=== PATIENT | female | born 1940 | race Caucasian/White ===

== ENCOUNTER 2018-06-27 19:05 | Emergency (ER) | payer MEDICARE, SELFPAY ==
[2018-06-27 19:05] VITALS: BP 172/109; PULSE 115; RESP 14; O2SAT 98
[2018-06-27 19:06] VITALS: BP 170/115; PULSE 110; RESP 18; TEMP 36.9; O2SAT 97; BMI 25.8
--- NOTE | 2018-06-27 19:35 | CT_ITS ---
STUDY: CT ABDOMEN AND PELVIS WITH CONTRAST REASON FOR EXAM: Female, 77 years old. Left upper quadrant pain. Nausea. Prior appendectomy. RADIATION DOSAGE (If Supplied By Facility): CTDIvol = ( 10.73 ) mGy, DLP = ( 554.61 ) mGycm TECHNIQUE: Transaxial images were obtained from the dome of the diaphragm to the symphysis pubis with oral contrast. Isovue 300 100ML IV/Oral was administered. Sagittal and coronal images were reconstructed. Individualized dose optimization techniques were used for this CT. COMPARISON: None. FINDINGS: Lung bases: Mild additional atelectasis/scarring. No focal patchy airspace opacities. No pleural effusions. Heart: Minimal aortic valve calcifications. Liver: Hepatic steatosis. Portal vein patent. Gallbladder/biliary ducts: Unremarkable. Pancreas: Severe pancreatic atrophy. Pancreatic body cystic lesion measuring 1.4 cm (axial image 37 series 2 and coronal image 30 series 6). No pancreatic ductal dilatation. Spleen: Unremarkable. Adrenal glands: Unremarkable. Kidneys/ureters/bladder: Minimal left perinephric and periureteral fat stranding. No ureteral obstruction. Multiple left low-density renal lesions most compatible with cysts. Mild right perinephric fat stranding. Nondistended right ureter. Urinary bladder is distended without wall abnormality. Uterus/adnexa: Atrophy. Adnexal regions physiologic appearance. Large bowel/small bowel: Colonic diverticulosis. No acute small bowel or large bowel process. Oral contrast reaches the mid small bowel. Appendix: Surgically absent as per clinical history. Gastroesophageal junction/stomach: Contrast distended stomach. Normal gastroesophageal junction. Retroperitoneum/lymph nodes: No intra-abdominal free air. No ascites. No pathologically enlarged lymph nodes. Vascular: Vascular calcifications. No aneurysm. Osseous structures: Degenerative changes. No acute process. Subcutaneous/soft tissues: Small fat-containing umbilical hernia. Paraspinal muscle atrophy. No acute process. CT/Abdomen/Pelvis WITH Contrast IMPRESSION: Bilateral perinephric fat stranding, left slightly greater than right, possible ascending infection/UTI (correlate urinalysis) Bilateral renal hypodense lesions, statistically cysts Colonic diverticulosis without acute small bowel or large bowel process 1.4 cm pancreatic indeterminate cystic lesion with severe pancreatic atrophy (nonemergent follow-up pancreatic protocol MRI recommended) Electronically Signed: Michael Goel DO at 21:42 EST Tel , Service support ,
--- NOTE | 2018-06-27 19:38 | ED.VISSUMM ---
- ER Visit Summary Date of Service: 06/27/18 Chief Complaint: Abdominal pain History of Present Illness: The patient is a 77 F who presents with left upper quadrant abdominal pain that has been getting worse over the past 3 days. Patient states she was lifting something and felt the pain began soon after that. Patient states the pain is over the left upper quadrant. Patient admits to some nausea but denies any vomiting. Patient states her pain is worse when she lays flat and better when she leans forward. Patient denies any diarrhea. Patient denies any dysuria or hematuria. Physical Examination: Vital signs are stable. Patient is afebrile. Patient is in no acute distress. Oral mucosa is pink and moist. Neck is supple. Trachea is midline. There is no JVD noted. Heart was regular and tachycardic. Lungs are clear and equal bilateral. Abdomen is soft. There is some left upper quadrant tenderness. There is no rebound or guarding noted. Cranial nerves II through XII are intact. There are no focal motor or sensory deficits noted. The remaining physical exam is within normal limits. Test Results: CT scan of the abdomen and pelvis shows bilateral perinephric stranding and a cystic lesion in the pancreas with severe atrophy of the pancreas. A nonemergency protocol MRI was recommended. CBC, comprehensive metabolic profile, lipase, and urinalysis were obtained and were all within normal limits. Emergency Department Course and Treatment: Patient was given IV fluids and morphine here. Patient felt better on reevaluation. Patient was instructed to follow-up with her primary care physician in 3-5 days. Patient was given a prescription for a short course of [place]. Patient was instructed to drink plenty of fluids. Patient and family understood and were agreeable with the plan. All questions were answered. Disposition: Discharge home Impression: Left upper quadrant abdominal pain This note was generated with [employer] dictation software. It may contain incorrect words, spelling, and punctuation that were not noted in review of the chart prior to signing ED Disposition - Plan for ED Patient: Disposition: Home or Assisted Living Diagnosis: Left upper quadrant abdominal pain of unknown etiology Instructions: ED Abdominal Pain Unkn Cause Prescriptions: Hydrocodone Bitart/Apap 5-325 [[place] 5MG-325MG] 1 tab PO Q6H PRN PRN 3 Days #10 tab PRN Reason: Pain Referrals: Deborah,Antonio, DO [Primary Care Provider] - 3-5 Days
--- NOTE | 2018-06-27 19:42 | ED.DCSUM_ITS ---
- ER Visit Summary Date of Service: 06/27/18 Chief Complaint: Abdominal pain History of Present Illness: The patient is a 77 F who presents with left upper quadrant abdominal pain that has been getting worse over the past 3 days. Patient states she was lifting something and felt the pain began soon after t hat. Patient states the pain is over the left upper quadrant. Patient admits to some nausea but denies any vomiting. Patient states her pain is worse when she lays flat and better when she leans forward. Patient denies any diarrhea. Patient denies any dysuria or hematuria. Physical Examination: Vital signs are stable. Patient is afebrile. Patient is in no acute distress. Oral mucosa is pink and moist. Neck is supple. Trachea is midline. There is no JVD noted. Heart was regular and tachycardic. Lungs are clear and equal bilateral. Abdomen is soft. There is some left upper quadrant tenderness. There is no rebound or guarding noted. Cranial nerves II through XII are intact. There are no focal motor or sensory deficits noted. The remaining physical exam is within normal limits. Test Results: CT scan of the abdomen and pelvis shows bilateral perinephric stranding and a cystic lesion in the pancreas with severe atrophy of the shen creas. A nonemergency protocol MRI was recommended. CBC, comprehensive metabolic profile, lipase, and urinalysis were obtained and were all within normal limits. Emergency Department Course and Treatment: Patient was given IV fluids and morphine here. Patient felt better on reevaluation. Patient was instructed to follow-up with her primary care physician in 3-5 days. Patient was given a prescription for a short course of [place]. Patient was instructed to drink plenty of fluids. Patient and family understood and were agreeable with the plan. All questions were answered. Disposition: Discharge home Impression: Left upper quadrant abdominal pain This note was generated with [employer] dictation software. It may contain incorrect words, spelling, and punctuation that were not noted in review of the chart prior to signing ED Disposition - Plan for ED Patient: Disposition: Home or Assisted Living Diagnosis: Left upper quadrant abdominal pain of unknown etiology Instructions: ED Abdominal Pain Unkn Cause Prescriptions: Hydrocodone Bitart/Apap 5-325 [[place] 5MG-325MG] 1 tab PO Q6H PRN PRN 3 Days #10 tab PRN Reason: Pain Referrals: Antonio Cabrera DO [Primary Care Provider] - 3-5 Days
[2018-06-27] MEDS: Morphine 4 MG/ML Syringe IV (19:45)
[2018-06-27 19:47] LABS: Absolute Lymphocyte Count 3.96 X10^3/ul (0.83-4.51); Absolute Neutrophil Count 5.3 X10^3/uL (2.0-7.7); Basophil# 0.03 X10^3/uL; Basophil% 0.3 % (0-1); Eosinophil# 0.05 X10^3/uL; Eosinophils% 0.5 % (0-5); Hematocrit 43.5 % (37-47); Hemoglobin 14.3 g/dl (12.0-15.0); Lymphocyte # 3.96 X10^3/ul (4.0); Lymphocyte % 39.9 % (19-41); Mean Corp Hgb Conc 32.9 g/gl (32-36); Mean Corpuscular Hgb 32.4 pg (27.0-32.0); Mean Corpuscular Volume 98.6 fL (81-99); Mean Platelet Vol. 10.6 fl (6.2-12.0); Monocyte# 0.59 X10^3/uL; Monocyte% 5.9 % (0-10); Neutrophil # 5.27 X10^3/uL (2.7-7.7); Neutrophil % 53.1 % (47-70); Platelet Count 247 K/mm3 (150-450); RBC Distribution Width CV 13.1 % (11.6-14.6); RBC Distribution Width SD 47.4 fl (35.1-43.9); Red Blood Count 4.41 M/mm3 (4.2-5.4); White Blood Count 9.9 K/mm3 (4.4-11.0)
[2018-06-27 19:48] LABS: POSITIVE COUNT NO; POSITIVE DIFFERENTIAL NO; POSITIVE MORPHOLOGY NO
[2018-06-27 19:52] VITALS: BP 183/80; PULSE 105; RESP 28; O2SAT 95
[2018-06-27 20:01] LABS: Bacteria 0 SEEN /hpf (None Seen); Mucous, Urine 0 SEEN /hpf (<or=2+); Red Blood Cells-Urine 0 SEEN /hpf (0-5); Squamous Epithelial Cells - UA 0 SEEN /hpf (5-10)
[2018-06-27 20:08] LABS: AST(SGOT) 25 U/L (15-37); Alanine Aminotransfer ALT/SGPT 25 U/L (13-56); Albumin, Serum 4.1 g/dL (3.2-5.0); Alkaline Phosphatase 105 U/L (45-117); Anion Gap 11 (5-15); BUN 20 mg/dL (7-18); BUN/Creat Ratio 17.7 RATIO (10-20); Calcium,Total 9.4 mg/dL (8.5-10.1); Chloride 106 mmol/L (98-107); Creatinine, Serum 1.13 mg/dL (0.55-1.02); EST Glomerular Filtration Rate 50 mL/min (>60); Est Glom Filt Rate - Afr Amer 60 mL/min (>60); Globulin 4.2 g/dL (2.2-4.2); Glucose 125 mg/dL (74-106); Lipase 74 U/L (73-393); Potassium 3.8 mmol/L (3.5-5.1); Protein, Total 8.3 g/dL (6.4-8.2); Sodium Level 141 mmol/L (136-145)
[2018-06-27 20:18] VITALS: BP 146/86; PULSE 93; RESP 18; O2SAT 95
[2018-06-27 20:23] LABS: Color, Urine Yellow (Yellow); Glucose, Dipstick Normal (Normal); Ketone-Dipstick Negative (Negative); Leukocyte Esterase-Dipstick 100 /ul (Negative); Nitrite-Dipstick Negative (Negative); Occult Blood-Urine Negative /ul (Negative); Protein-Dipstick Negative (Negative); Urine Bilirubin Dipstick Negative (Negative); Urine Clarity Clear (Clear); Urine Urobilinogen Normal (Normal)
[2018-06-27 20:29] LABS: White Blood Cells 0-5 SEEN /hpf (0-5)
[2018-06-27 22:26] VITALS: BP 145/82; PULSE 80; RESP 18; O2SAT 94
== END 2018-06-27 22:27 | disposition home or self-care (01) ==
PROVIDERS: Emergency Provider Emergency Medicine; Family Provider Family Medicine; PCP Family Medicine
DX: R10.12 Left upper quadrant pain (principal); I10 Essential (primary) hypertension
CPT/HCPCS: 74177; 80053; 81001; 83690; 85025; 96374; 99282; Q9967; A4216

== ENCOUNTER → 2018-07-02 08:51 | Outpatient (CLI) | payer MEDICARE, SELFPAY ==
[2018-06-27 19:06] VITALS: BMI 25.8
--- NOTE | 2018-07-02 09:13 | MRI_ITS ---
STUDY: MRI ABDOMEN WITH AND WITHOUT CONTRAST REASON FOR EXAM: Female, 77 years old. Pancreas exist, abdominal pain left upper quadrant one week. Prior appendectomy and oophorectomy. TECHNIQUE: Standardized fat and water weighted pulse sequences were obtained in all 3 orthogonal planes post contrast administration. 6 ml of Gadavist contrast material was administered intravenously for the contrast portion of the examination. COMPARISON: CT abdomen and pelvis with contrast 06/27/2018. FINDINGS: Osseous structures: There is evidence of mild thoracal lumbar scoliosis, mild low lumbar degenerative disc disease at L5-S1. There appears to be transitional lumbosacral vertebral anatomy with lumbarization of S1. No acute osseous process is evident. Bilateral soft tissues: No acute process. Inferior chest: Unremarkable. Hepatobiliary: Hepatomegaly, craniocaudal right liver 18.2 cm. No focal hepatic lesion is evident. No abnormal enhancement. Normal gallbladder and biliary tree. Pancreas: Severe fatty atrophy. There is a sharply circumscribed oval thin-walled cyst of the proximal pancreatic tail measuring 12 mm, simple cystic features. There is no ductal ectasia. Spleen: Normal. Adrenal glands: Normal. Urinary tract: Small right parapelvic cysts of the left kidney. A few of the right kidney. Nondilated collecting systems. Simple cysts of the left renal cortex, the largest measuring 1.5 cm. Symmetric nephrograms. Retroperitoneum: No mass or lymphadenopathy. Vasculature: Normal. Stomach: Normal. Small and large bowel: Evaluated portions of the bowel exhibits no acute process. MRI/MRI Abd WITH and W/O Contrast IMPRESSION: Pancreatic cyst of the proximal tail measuring 12 mm. Simple cystic features. Differential considerations include simple cysts, versus IPMN. There is no associated ductal ectasia and there is no clear communication to the pancreatic duct although cyst directly abuts the duct. Pancreatic cystic neoplasm is not entirely excluded despite the bland morphology. Surveillance imaging is recommended. If follow-up in 1 year would be appropriate based on size criteria. Prominent pancreatic atrophy. Benign renal cysts including left renal cortical cysts and bilateral parapelvic cysts. Electronically Signed: Melquiades Penn MD at 14:06 EST Tel , Service support ,
== END ==
PROVIDERS: Family Provider Family Medicine; PCP Family Medicine; Referring Provider Family Medicine; Visit Provider Family Medicine
DX: K86.2 Cyst of pancreas (principal); R10.9 Unspecified abdominal pain
CPT/HCPCS: 74183; A9585; A4216

== ENCOUNTER → 2019-03-15 06:41 | Outpatient (CLI) | payer MEDICARE, SELFPAY ==
--- NOTE | 2019-03-15 06:51 | MRI_ITS ---
STUDY: MRI BRAIN WITH AND WITHOUT CONTRAST REASON FOR EXAM: Female, 78 years old. The left ear tinnitus and hearing loss TECHNIQUE: Standardized multiplanar fat and water weighted pulse sequences were obtained. IV Dotarem 13 was administered for the contrast portion of the examination. COMPARISON: None. FINDINGS: There is moderate cerebral atrophy with widening of the extra-axial spaces and ventricular dilatation. There are multiple confluent white matter hyperintensities, distributed throughout the deep white matter tracts of the cerebral hemispheres, consistent with severe chronic white matter ischemic changes. There are prominent perivascular spaces (PVS) involving the basal ganglia. Normal thalami. There is no extra-axial fluid accumulation. Normal flow voids within the major intracranial circulation suggesting patency by spin echo criteria. Normal venous enhancement. There is no enhancing intra-axial or extra-axial abnormality. Normal sella turcica, pituitary gland, infundibular stalk, optic chiasm and hypothalamus. Normal tectal plate and pineal gland. Normal midbrain, uzma and medulla. Normal cerebellum. Normal basal cisterns. Normal bilateral temporal bones. Normal bilateral internal auditory canals. No demonstrated orbital abnormality, within the constraints of a routine brain study. Normal visualized paranasal sinuses. Normal calvarium and skull base. Normal visualized soft tissue structures. Normal visualized upper cervical spine. MRI/Brain W/WO Contrast IMPRESSION: Severe involutional changes of the brain, as described above. Normal bilateral internal auditory canals and cerebellopontine angle. Electronically Signed: Madeleine Tristin, at 11:34 EST Tel , Service support ,
[2019-03-15 07:51] LABS: CREATININE FINGERSTICK 0.9 mg/dL (0.55-1.02); EGFR FINGERSTICK > 60.0000 mL/min (>60)
== END ==
PROVIDERS: Family Provider Family Medicine; PCP Family Medicine; Referring Provider Otolaryngology Otolaryngology/Facial Plastic Surgery; Visit Provider Otolaryngology Otolaryngology/Facial Plastic Surgery
DX: H93.12 Tinnitus, left ear (principal); H91.90 Unspecified hearing loss, unspecified ear
CPT/HCPCS: 70553; A9575

== ENCOUNTER 2024-03-01 10:56 | Inpatient (IN) | payer MEDICARE, SELFPAY ==
[2024-03-01] VITALS (26 sets, daily range): BP systolic 96–140; BP diastolic 58–103; PULSE 81–162; RESP 14–22; TEMP 36.2–36.3; O2SAT 82–100; BMI 26.4; BMI 26.8
[2024-03-01 11:36] LABS: Absolute Neutrophil Count 4.7 X10^3/uL (2.0-7.7); Basophil# 0.05 X10^3/uL; Basophil% 0.6 % (0-1); Eosinophil# 0.04 X10^3/uL; Eosinophils% 0.5 % (0-5); Hematocrit 42.8 % (37-47); Hemoglobin 14.1 g/dL (12.0-15.0); Lymphocyte % 37.4 % (19-41); Mean Corp Hgb Conc 32.9 g/dL (32-36); Mean Corpuscular Hgb 33.3 pg (27.0-32.0); Mean Corpuscular Volume 101.2 fL (81-99); Mean Platelet Vol. 11.1 fl (6.2-12.0); Monocyte# 0.37 X10^3/uL; Monocyte% 4.5 % (0-10); NRBC Flagged by Analyzer 0 % (0-5); Neutrophil # 4.71 X10^3/uL (2.7-7.7); Neutrophil % 56.8 % (47-70); Platelet Count 245 K/mm3 (150-450); RBC Distribution Width CV 13.2 % (11.6-14.6); RBC Distribution Width SD 49.8 fl (35.1-43.9); Red Blood Count 4.23 M/mm3 (4.2-5.4); White Blood Count 8.3 K/mm3 (4.4-11.0)
[2024-03-01 11:53] LABS: Anion Gap 7 (5-15); BUN 30 mg/dL (7-18); BUN/Creat Ratio 23.8 RATIO (10-20); Calcium,Total 9.6 mg/dL (8.5-10.1); Chloride 109 mmol/L (98-107); Creatinine, Serum 1.26 mg/dL (0.55-1.02); EST Glomerular Filtration Rate 43 mL/min (>60); Est Glom Filt Rate - Afr Amer 52 mL/min (>60); Estimated Creatinine Clearance 29.39 ml/min; Glucose 118 mg/dL (74-106); Potassium 3.9 mmol/L (3.5-5.1); Sodium Level 141 mmol/L (136-145); Troponin-I HS (w/2H Reflex) 10 pg/mL (3.0-54.0)
[2024-03-01] MEDS: dilTIAZem 25 MG/5 ML Vial 20 MG IV BOLUS (12:59)
[2024-03-01 13:32] LABS: Reflex Troponin-HS? (from REC) Y
[2024-03-01 14:05] LABS: Troponin-I HS 12 pg/mL (3.0-54.0)
[2024-03-01] MEDS: Diltiazem 125 MG in Dextrose 5%-Water (100mL Bag) 100 ML CONT INF (16:45)
[2024-03-01] MEDS: 0.9% Saline Lock 10 ML Syringe IV (16:49)
[2024-03-01 17:30] LABS: Troponin-I HS 14 pg/mL (3.0-54.0)
[2024-03-01 21:07] LABS: T4 Free Direct 0.84 ng/dL (0.76-1.46)
[2024-03-01] MEDS: APIXABAN 2.5 MG TABLET (WCH) PO (22:59)
[2024-03-01] MEDS: Metoprolol Tartrate 50 MG Tablet PO (23:00)
[2024-03-02] VITALS (20 sets, daily range): BP systolic 85–116; BP diastolic 47–78; PULSE 61–86; RESP 17–21; TEMP 36.1–36.2; O2SAT 91–98
[2024-03-02] MEDS: MELATONIN 10 MG TABLET PO (00:57)
[2024-03-02 06:32] LABS: Anion Gap 4 (5-15); BUN 26 mg/dL (7-18); BUN/Creat Ratio 19.8 RATIO (10-20); Chloride 109 mmol/L (98-107); Creatinine, Serum 1.31 mg/dL (0.55-1.02); EST Glomerular Filtration Rate 41 mL/min (>60); Est Glom Filt Rate - Afr Amer 50 mL/min (>60); Estimated Creatinine Clearance 28.46 ml/min; Glucose 115 mg/dL (74-106); Potassium 4.6 mmol/L (3.5-5.1); Sodium Level 139 mmol/L (136-145)
[2024-03-02] MEDS: Diltiazem 125 MG in Dextrose 5%-Water (100mL Bag) 100 ML CONT INF (07:01)
[2024-03-02] MEDS: Metoprolol Tartrate 50 MG Tablet PO (09:52)
[2024-03-02] MEDS: APIXABAN 2.5 MG TABLET (WCH) PO ×2 (09:53→21:33)
[2024-03-03] VITALS (7 sets, daily range): BP systolic 92–135; BP diastolic 61–91; PULSE 85–124; RESP 14–18; TEMP 36.6–36.7; O2SAT 93–97
[2024-03-03] MEDS: Metoprolol Tartrate 50 MG Tablet PO (07:52)
[2024-03-03] MEDS: APIXABAN 2.5 MG TABLET (WCH) PO ×2 (07:52→21:37)
[2024-03-03] MEDS: dilTIAZem CD 120 MG Capsule PO ×2 (11:35→21:37)
[2024-03-03] MEDS: Metoprolol Tartrate 25 MG Tablet PO (21:37)
[2024-03-04 06:19] VITALS: BP 138/74; PULSE 83; RESP 20; TEMP 37; O2SAT 97
[2024-03-04 09:53] VITALS: BP 106/71; PULSE 102; RESP 16; TEMP 36.6; O2SAT 98
[2024-03-04 09:55] VITALS: PULSE 102
[2024-03-04] MEDS: Metoprolol Tartrate 25 MG Tablet PO (09:55)
[2024-03-04] MEDS: dilTIAZem CD 120 MG Capsule PO (09:55)
[2024-03-04] MEDS: APIXABAN 2.5 MG TABLET (WCH) PO (09:55)
== END 2024-03-04 14:01 | disposition home or self-care (01) | DRG 310 ==
LOC: ED 13:50 → PCU 14:05
PROVIDERS: Emergency Provider Emergency Medicine; PCP Family Medicine; Visit Provider Internal Medicine
DX: I48.91 Unspecified atrial fibrillation (principal); I10 Essential (primary) hypertension; R94.6 Abnormal results of thyroid function studies
CPT/HCPCS: 36415; 71045; 80048; 84439; 84443; 84484; 85025; 93005; 93306; 99285; A4216

== ENCOUNTER 2024-03-12 09:53 | Emergency (ER) | payer MEDICARE, SELFPAY ==
[2024-03-12] VITALS (7 sets, daily range): BP systolic 108–123; BP diastolic 75–87; PULSE 42–122; RESP 16–22; TEMP 36.1–36.6; O2SAT 20–100; BMI 27.1
[2024-03-12 11:16] LABS: Absolute Lymphocyte Count 2.93 X10^3/uL (0.83-4.51); Absolute Neutrophil Count 5.8 X10^3/uL (2.0-7.7); Basophil# 0.08 X10^3/uL; Basophil% 0.8 % (0-1); Eosinophil# 0.08 X10^3/uL; Eosinophils% 0.8 % (0-5); Hematocrit 41.9 % (37-47); Hemoglobin 13.7 g/dL (12.0-15.0); Lymphocyte # 2.93 X10^3/ul (0.83-4.51); Lymphocyte % 30.6 % (19-41); Mean Corp Hgb Conc 32.7 g/dL (32-36); Mean Corpuscular Hgb 32.6 pg (27.0-32.0); Mean Corpuscular Volume 99.8 fL (81-99); Mean Platelet Vol. 11.4 fl (6.2-12.0); Monocyte# 0.66 X10^3/uL; Monocyte% 6.9 % (0-10); NRBC Flagged by Analyzer 0 % (0-5); Neutrophil # 5.78 X10^3/uL (2.7-7.7); Neutrophil % 60.5 % (47-70); Platelet Count 235 K/mm3 (150-450); RBC Distribution Width CV 13.3 % (11.6-14.6); RBC Distribution Width SD 49.2 fl (35.1-43.9); White Blood Count 9.6 K/mm3 (4.4-11.0)
[2024-03-12] MEDS: dilTIAZem 25 MG/5 ML Vial 10 MG IV BOLUS (11:16)
[2024-03-12 11:31] LABS: International Normalized Ratio 1.3; Partial Thromboplast Time 29.9 Seconds (24.1-36.2); Prothrombin Time (Protime)PT. 15.7 SECONDS (11.7-14.9)
[2024-03-12 11:35] LABS: Anion Gap 8 (5-15); BUN 27 mg/dL (7-18); BUN/Creat Ratio 20.5 RATIO (10-20); Calcium,Total 8.9 mg/dL (8.5-10.1); Chloride 111 mmol/L (98-107); Creatinine, Serum 1.32 mg/dL (0.55-1.02); EST Glomerular Filtration Rate 41 mL/min (>60); Est Glom Filt Rate - Afr Amer 50 mL/min (>60); Estimated Creatinine Clearance 28.41 ml/min; Glucose 126 mg/dL (74-106); Magnesium 1.8 mg/dL (1.6-2.6); Potassium 4.2 mmol/L (3.5-5.1); Sodium Level 138 mmol/L (136-145); Troponin-I HS (w/2H Reflex) 7 pg/mL (3.0-54.0)
[2024-03-12] MEDS: 0.9% Normal Saline (500mL Bag) 500 ML 999 ML IV (12:15)
[2024-03-12] MEDS: dilTIAZem 25 MG/5 ML Vial 5 MG IV BOLUS (12:39)
[2024-03-12 13:06] LABS: Reflex Troponin-HS? (from REC) Y
[2024-03-12 13:34] LABS: Troponin-I HS 9 pg/mL (3.0-54.0)
[2024-03-12] MEDS: Digoxin 125 MCG Tablet 62.5 MCG PO (13:43)
== END 2024-03-12 13:48 | disposition home or self-care (01) ==
PROVIDERS: Emergency Provider Surgery; PCP Family Medicine; Visit Provider Surgery
DX: R00.2 Palpitations (principal); I48.91 Unspecified atrial fibrillation; Z85.828 Personal history of other malignant neoplasm of skin; Z79.899 Other long term (current) drug therapy; Z79.01 Long term (current) use of anticoagulants; N28.9 Disorder of kidney and ureter, unspecified; I10 Essential (primary) hypertension; R53.1 Weakness
CPT/HCPCS: 71045; 71275; 80048; 83735; 83880; 84439; 84443; 84484; 85025; 85379; 85610; 85730; 93005; 96361; 96374; 96376; 99285; J7040; Q9967; A4216

== ENCOUNTER → 2025-02-01 | Outpatient (CLI) | payer MEDICARE, SELFPAY ==
--- NOTE | 2025-02-01 13:04 | ECHOD_ITS ---
Reason For Study Reason For Study: MURMUR Procedure This was a 2D Doppler, Color Flow transthoracic echocardiogram. Myocardial strain analysis was performed in this exam to aid in the assessment of cardiac function. Exam performed in department. Left Ventricle Normal LV size. Mild concentric left ventricular hypertrophy. The global longitudinal strain = -18.1 % (normal). The left ventricular ejection fraction is 60 %. No regional wall motion abnormalities noted. Right Ventricle Normal RV size. Normal systolic function. Atria Normal left atrium. Normal right atrium. Mitral Valve Normal mitral valve. Tricuspid Valve Normal tricuspid valve. Mild (1+) tricuspid valve insufficiency. Pulmonary artery systolic pressure is 40 mmHg. Aortic Valve Trisinus/trileaflet aortic valve. Mild focal aortic valve calcification. Peak aortic valve gradient 65 mmHg. Mean aortic valve gradient 41 mmHg. Severe aortic stenosis. Mild (1+) aortic valve insufficiency. Pulmonic Valve Normal pulmonic valve. Great Vessels Normal aortic root. The pulmonary artery is normal size. Inferior vena cava collapse with respiration. Pericardium/Pleural No pericardial effusion. MMode/2D Measurements & Calculations LVIDd: 4.5 cm IVSd: 1.2 cm LVOT diam: 1.9 cm LVIDs: 2.1 cm LVPWd: 1.2 cm LVOT area: 2.7 cm2 RVDd: 3.4 cm FS: 52.0 % asc Aorta Diam: 3.6 cm LAV(MOD-bp): 46.6 ml LVAd ap4: 16.8 cm2 LAV(MOD-bp) Indexed: 29.5 ml/m2 LVLd ap4: 6.0 cm LAV(MOD-sp2): 57.8 ml EDV(MOD-sp4): 38.2 ml LAV(MOD-sp4): 34.6 ml EDV(sp4-el): 39.7 ml LVAs ap4: 7.5 cm2 LVLs ap4: 4.8 cm ESV(MOD-sp4): 10.0 ml ESV(sp4-el): 10.0 ml EF(MOD-sp4): 73.9 % EF(sp4-el): 74.7 % LVAd ap2: 15.0 cm2 SV(MOD-sp4): 28.3 ml SV(MOD-sp2): 23.3 ml LVLd ap2: 5.9 cm SI(MOD-sp4): 17.9 ml/m2 SI(MOD-sp2): 14.8 ml/m2 EDV(MOD-sp2): 32.5 ml EDV(sp2-el): 32.2 ml LVAs ap2: 7.1 cm2 LVLs ap2: 4.7 cm ESV(MOD-sp2): 9.2 ml ESV(sp2-el): 9.1 ml EF(MOD-sp2): 71.7 % SV(sp4-el): 29.7 ml Ao sinus diam: 3.[address] Junction: 2.4 cm LA dimension(2D): 4.2 cm LA A4 area: 15.7 cm2 RA A4 area: 12.0 cm2 TAPSE: 2.1 cm Time Measurements MV dec time: 0.13 sec Doppler Measurements & Calculations MV E max braydon: 107.8 cm/sec Lat Peak E' Braydon: 11.2 cm/sec Med Peak E' Braydon: 8.1 cm/sec MV A max braydon: 68.8 cm/sec E/E' lat: 9.6 E/E' med: 13.2 MV E/A: 1.6 MV dec slope: 831.1 cm/sec2 Ao V2 max: 402.3 cm/sec AI max braydon: 367.1 cm/sec Ao max P.3 mmHg AI max P.2 mmHg Ao V2 mean: 308.0 cm/sec AI dec slope: 217.4 cm/sec2 Ao mean P.3 mmHg AI P1/2t: 494.7 msec Ao V2 VTI: 98.2 cm AV (velocity ratio): 0.38 SANDI(I,D): 1.0 cm2 SANDI(V,D): 0.96 cm2 LV V1 max: 142.2 cm/sec SV(LVOT): 102.1 ml PA V2 max: 99.8 cm/sec LV V1 max P.1 mmHg LV V1 mean P.6 mmHg LV V1 mean: 100.6 cm/sec LV V1 VTI: 37.5 cm TR max braydon: 305.5 cm/sec TR max P.4 mmHg ECHO/Echo Complete Interpretation Summary Normal LV size. The global longitudinal strain = -18.1 % (normal). The left ventricular ejection fraction is 60 %. Mean aortic valve gradient 41 mmHg. Mild focal aortic valve calcification. Peak aortic valve gradient 65 mmHg. Severe aortic stenosis. Ordering Physician: Megan Silverman Referring Physician: ZACARIAS ROSSI Performed By: Isamar Hawthorne RDCS
== END | disposition home or self-care (01) ==
PROVIDERS: PCP Family Medicine; Referring Provider Physician Assistant Medical; Visit Provider Physician Assistant Medical
DX: R01.1 Cardiac murmur, unspecified (principal)
CPT/HCPCS: 93306

== ENCOUNTER → 2025-03-07 | Outpatient (CLI) | payer MEDICARE, SELFPAY ==
--- NOTE | 2025-03-07 10:42 | RAD_ITS ---
PROCEDURE: CHEST PA AND LATERAL 03/07/2025 REASON FOR EXAM: [place] TECHNIQUE: Procedure Code: RADCXR Modality: DX Procedure: CHEST PA AND LATERAL COMPARISON: None FINDINGS: There is mild cardiomegaly without overt CHF. There is no focal infiltrate or consolidation. There is no pneumothorax or effusion. Aortic calcifications are noted. There is no visible acute bony abnormality. RAD/Chest PA and Lateral IMPRESSION: There is mild cardiomegaly without overt CHF. Reading Location: [facility]
[2025-03-07 12:18] LABS: Hematocrit 43.0 % (37-47); Hemoglobin 14.3 g/dL (12.0-15.0); Immature Granulocytes Count 0.020 X10^3/uL (0.0-0.0); Mean Corp Hgb Conc 33.3 g/dL (32-36); Mean Corpuscular Volume 100.9 fL (81-99); Mean Platelet Vol. 11.3 fl (6.2-12.0); NRBC Flagged by Analyzer 0 % (0-5); Platelet Count 261 K/mm3 (150-450); RBC Distribution Width CV 13.2 % (11.6-14.6); RBC Distribution Width SD 49.1 fl (35.1-43.9); Red Blood Count 4.26 M/mm3 (4.2-5.4); White Blood Count 9.1 K/mm3 (4.4-11.0)
[2025-03-07 12:27] LABS: Prothrombin Time (Protime)PT. 13.9 SECONDS (11.7-14.9)
[2025-03-07 12:28] LABS: Partial Thromboplast Time 27.8 Seconds (24.1-36.2)
[2025-03-07 13:22] LABS: Anion Gap 12 (5-15); BUN 35 mg/dL (4-19); BUN/Creat Ratio 25.1 RATIO (10-20); Calcium,Total 9.8 mg/dL (7.6-11.0); Carbon Dioxide 26.1 mmol/L (21.0-32.0); Chloride 102 mmol/L (98-108); Glucose 102 mg/dL (70-99); Potassium 4.3 mmol/L (3.3-5.1)
== END | disposition home or self-care (01) ==
PROVIDERS: PCP Family Medicine; Referring Provider Physician Assistant Medical; Visit Provider Physician Assistant Medical
DX: R06.09 Other forms of dyspnea (principal); I35.0 Nonrheumatic aortic (valve) stenosis; Z79.01 Long term (current) use of anticoagulants
CPT/HCPCS: 36415; 71046; 80048; 85025; 85610; 85730

== ENCOUNTER 2025-04-03 07:19 | Day surgery (SDC) | payer MEDICARE, SELFPAY ==
[2025-03-31 08:06] VITALS: BMI 25.4
--- OUTSIDE RECORDS SUMMARY | 2025-04-03 07:24 | XMS RPT_ITS | CCD ---
Author Organization [facility] Care Team Providers Care Crystallography Teacher Name Role Phone Noel Rossi MD Primary Care Provider NOEL ROSSI Primary Care Unavailable KIMMIE HEATH Referring Unavailable NOEL ROSSI Primary Care Unavailable NOEL HOLLIDAY Attending Unavailable Noel Rossi MD Primary Care Provider Bill GAS APPLIANCE INSTALLER.Jessy HODGSON Unavailable Maxine Allen PA-C Unavailable Dr. Noel Rossi MD Primary Care Provider Dr. Noel Rossi MD Referring Provider Megan Aly Attending Provider Dr. Noel Rossi MD Primary Care Provider Dr. Noel Rossi MD Referring Provider Megan Aly Attending Provider Bill KENNY.Jessy HODGSON Unavailable Maxine Allen PA-C Unavailable Dr. Noel Rossi MD Primary Care Physician Megan Aly Attending Physician Megan Aly Referring Provider She JARAMILLO, Dr. Lindsay Attending Physician Dr. Noel Rossi MD Primary Care Physician Dr. Noel Rossi MD Referring Provider Megan Aly Attending Physician ENID, NOEL A Attending Unavailable ENID, NOEL A Primary Care Unavailable ENID, NOEL A Referring Unavailable ENID, NOEL A Primary Care Unavailable ENID, NOEL A Attending Unavailable ENID, NOEL A Primary Care Unavailable EIND, NOEL A Referring Unavailable ENID, NOEL A Primary Care Unavailable ENID, NOEL A Attending Unavailable ENID, NOEL A Primary Care Unavailable ENID, NOEL A Referring Unavailable ENID, NOEL A Primary Care Unavailable Enid, Noel Primary Care Unavailable Megan Aly Attending Unavail able Enid, Noel Referring Unavailable Megan Aly Attending Unavail able Enid, Noel Referring Unavailable Enid, Noel Primary Care Unavailable Megan Aly Attending Unavail able Enid, Noel Referring Unavailable Enid, Noel Primary Care Unavailable She, Social Circle Attending Unavailable Enid, Noel Primary Care Unavailable She, Neftali Attending Unavailable She, Neftali Referring Unavailable Enid, Noel Primary Care Unavailable Megan Aly Attending Unavail able Megan Aly Referring Unavail able Enid, Noel Primary Care Unavailable Enid, Noel Primary Care Unavailable Megan Aly Attending Unavail able Enid, Noel Referring Unavailable Enid, Noel Primary Care Unavailable She, Social Circle Attending Unavailable Enid, Noel Referring Unavailable Enid, Noel Primary Care Unavailable Megan Aly Attending Unavail able Enid, Noel Referring Unavailable Enid, Noel Primary Care Unavailable Megan Aly Attending Unavail able Enid, Noel Referring Unavailable Enid, Noel Primary Care Unavailable Megan Aly Attending Unavail able Enid, Noel Referring Unavailable Enid, Noel Primary Care Unavailable Megan Aly Referring Unavail able Megan Aly Attending Unavail able Allergies Allergy Classification Reported Allergen(s) Allergy Type Date of Onset Reaction(s) Facility (4 sources) diphenhydrAMINE Drug Allergy 5 [facility] Comment on above: slow to wake (4 sources) fentaNYL Drug Allergy 5 [facility] Comment on above: slow to wake (4 sources) Midazolam Drug Allergy 5 [facility] Comment on above: slow to wake (4 sources) Anesthetics - Amide Type - Select A Allergy to substance 5 Other [facility] Comment on above: Hard time waking up (1 source) diphenhydrAMINE Drug Allergy 5 [facility] Repository (1 source) fentaNYL Drug Allergy 5 [facility] Repository (1 source) Midazolam Drug Allergy 5 [facility] Repository (1 source) Anesthetics - Amide Type - Select A Drug allergy (disorder) 5 [facility] Repository Medications Current Medications Medication Drug Class(es) Dates Sig (Normalized) Sig (Original) amLODIPine 5 mg oral tablet (20 sources) Dihydropyridine Calcium Channel [facility] Start: 06-14-2024 End: 08-08-2024 take 1 tablet by mouth once daily Amlodipine 5 mg tablet Active 5 mg PO DAILY 90 3 June 14, 2024 10:59am Complies with drug therapy Start: 06-14-2024 End: 06-14-2024 take 5 mg by mouth once daily Amlodipine 10 mg tablet Discontinued 5 mg PO DAILY June 14, 2024 10:58am June 14, 2024 11:00am Start: 03-14-2024 End: 06-14-2024 take 1 tablet by mouth once daily Amlodipine 10 mg tablet Discontinued 10 mg PO DAILY March 14, 2024 1:00am June 14, 2024 10:59am Start: 03-01-2024 End: 03-12-2024 take 1 tablet by mouth once daily Amlodipine 10 mg tablet Discontinued 10 mg PO DAILY March 01, 2024 12:00am March 12, 2024 2:42pm blood pressure Start: 02-27-2021 End: 01-15-2024 take 1 tablet by mouth once daily amLODIPine (NORVASC) 10 mg tablet Take 1 tablet by mouth once daily. 90 tablet 1 01/15/2024 Active Start: 06-27-2018 End: 03-01-2024 take 1 tablet by mouth once daily Amlodipine 5 MG tablet Discontinued 5 mg PO DAILY June 27, 2018 1:00am March 01, 2024 1:46pm Comment on above: Take 1 tablet by walker th once daily. calcium carbonate 1250 mg oral tablet (2 sources) Start: take 1 tablet by mouth once daily Calcium Carbonate 500 mg calcium (1,250 mg) tablet Active 500 mg PO daily February 07, 2025 12:00am Complies with drug therapy 12 hr dilTIAZem hydrochloride 120 mg extended release oral capsule (10 sources) Calcium Channel [facility] Start: End: take 1 capsule by mouth twice daily dilTIAZem ER (CARDIZEM SR) 120 mg 12 hr capsule Take 1 capsule by mouth two times a day. 03/04/2024 03/24/2024 Discontinued (Discontinued by another Health Care Provider) Start: 03-04-2024 End: 03-23-2024 take 1 capsule by mouth every twelve hours Diltiazem Hcl 120 mg Capsule,Extended Release 24hr Discontinued 120 mg PO EVERY 12 HOURS 120 60 0 March 04, 2024 12:00am March 23, 2024 11:04am enteric contrast (will be provided with radiology test) (1 source) Start: 05-21-2022 End: 05-22-2022 enteric contrast (will be provided with radiology test) Indications: Pancreatic cyst MRI PANCREAS FUNCTION WO/W IVCON. Administer, As Directed One Time Only, via Oral, Rectal, both Oral and Rectal, Enteric Tube, Stoma or Indwelling Catheter, Enteric Contrast as designated per enteric contrast guidelines 1 Each 0 05/21/2022 05/22/2022 Active Comment on above: MRI PANCREAS FUNCTIO N WO/W IVCON. Administer, As Directed One Time Only, via Oral, Rectal, both Oral and Rectal, Enteric Tube, Stoma or Indwelling Catheter, Enteric Contrast as designated per enteric contrast guidelines hydroCHLOROthiazide 25 mg oral tablet (20 sources) Thiazide Diuretic Start: 06-27-2018 End: 01-26-2025 take 1 tablet by mouth once daily Hydrochlorothiazide 25 mg tablet Active 25 mg PO DAILY 90 January 26, 2025 10:13am blood pressure Complies with drug therapy Comment on above: Take 1 tablet by walker th once daily. lisinopril 30 mg oral tablet (20 sources) Angiotensin Converting Enzyme Inhibitor Start: 03-23-2024 End: 02-07-2025 take 1 tablet by mouth once daily Lisinopril 30 mg tablet Active 30 mg PO daily 90 February 07, 2025 2:43pm blood pressure Complies with drug therapy Start: 03-27-2021 End: 03-24-2024 take 1 tablet by mouth twice daily Lisinopril 30 mg tablet Discontinued 30 mg PO TWICE A DAY March 01, 2024 12:00am March 23, 2024 11:06am blood pressure Start: 06-27-2018 End: 03-01-2024 take 1 tablet by mouth once daily Lisinopril (Zestril) 5 MG tablet Discontinued 5 mg PO DAILY June 27, 2018 1:00am March 01, 2024 1:46pm Comment on above: Take 1 tablet by walker th twice daily. Take 1 tablet by walker th two times a day. Magnesium Chloride (20 sources) MAGNESIUM CHLORI DE ORAL Take by mouth. Active MAGNESIUM CHLORI DE ORAL Take by mouth. 0 Active Comment on above: Take by mouth. magnesium citrate 100 mg oral tablet (2 sources) Start: 02-07-2025 take 1 capsule by mouth once daily Magnesium Citrate 100 mg capsule Active 100 mg PO daily February 07, 2025 12:00am Complies with drug therapy meclizine hydrochloride 25 mg oral tablet (5 sources) Antiemetic Start: 02-07-2025 take 1 tablet by mouth once daily as needed Meclizine 25 mg tablet Active 25 mg PO daily as needed February 07, 2025 12:00am Complies with drug therapy Start: 07-06-2023 End: 08-05-2023 take 1 tablet by mouth three times daily meclizine (ANTIVERT) 25 mg tab Indications: Dizziness , Tinnitus of left ear Take 1 tablet by mouth three times a day. 30 tablet 0 07/06/2023 08/05/2023 Start: 02-25-2023 End: 03-02-2023 take 1 tablet by mouth three times daily meclizine (ANTIVERT) 25 mg tab Indications: Dizziness , Tinnitus of left ear Take 1 tablet by mouth three times a day for 5 days. 15 tablet 0 02/25/2023 03/02/2023 Active Comment on above: Take 1 tablet by walker th three times a day for 5 days. Take 1 tablet by walker th three times a day. Sovtw-8-EZR-EPA-Fis h Oil 1,200 (144-216) mg cap (20 sources) Start: 01-20-2019 take 2 capsules by mouth once daily Zpuvz-1-MQK-EPA-Fis h Oil 1,200 (144-216) mg cap Take 2 capsules by mouth once daily. 01/20/2019 Active Start: 01-20-2019 take 2 capsules by m outh once daily Iysgt-0-LII-EPA-Fish Oil 1,200 (144-216) mg cap Take 2 capsules by mouth once daily. 0 01/20/2019 Active Comment on above: Take 2 capsules by m outh once daily. potassium bicarbonate 25 meq effervescent oral tablet (2 sources) Start: 02-07-2025 Potassium Bicarb-Citric Acid 25 mEq tablet, effervescent Active 25 meq PO daily February 07, 2025 12:00am Complies with drug therapy POTASSIUM-99 ORAL (20 sources) POTASSIUM-99 ORA L Take by mouth. Active POTASSIUM-99 ORA L Take by mouth. 0 Active Comment on above: Take by mouth. secretin human, synthetic 0.016 mg injection (20 sources) Start: 05-21-2022 secretin, Human, (CHIROSTIM) 16 mcg solr Indications: Pancreatic cyst (HCC) For MRI PANCREAS FUNCTION WO/W IVCON. Inject 0.2 mcg/kg/dose intravenously as directed. Slow push at the appropriate time during MRI 1 Each 05/21/2022 Active Comment on above: For MRI PANCREAS FUN CTION WO/W IVCON. Inject 0.2 mcg/kg/dose intravenously as directed. Slow push at the appropriate time during MRI Completed/Discontinued Medications Medication Drug Class(es) Dates Sig (Normalized) Sig (Original) acetaminophen 325 mg / HYDROcodone bitartrate 5 mg oral tablet (4 sources) Opioid Agonist Start: 06-27-2018 End: 06-30-2018 amiodarone hydrochloride 200 mg oral tablet (12 sources) Antiarrhythmic Start: 07-21-2024 End: 08-12-2024 take 1 tablet by mouth once daily Amiodarone 200 mg tablet Discontinued 200 mg PO daily 30 August 11, 2024 1:51pm August 12, 2024 9:42am apixaban 2.5 mg oral tablet (20 sources) Factor Xa Inhibitor Start: 03-04-2024 End: 12-13-2024 take 1 tablet by mouth twice daily Apixaban (Eliquis) 2.5 mg tablet Discontinued 2.5 mg PO TWICE A DAY 180 July 06, 2024 9:55am December 13, 2024 3:46pm Start: 03-04-2024 End: 06-14-2024 take 2.5 mg by mouth twice daily Apixaban (Eliquis) 5 mg Tablet Discontinued 2.5 mg PO TWICE A DAY 60 60 0 March 04, 2024 12:00am June 14, 2024 10:42am aspirin 81 mg delayed release oral tablet (12 sources) Platelet Aggregation Inhibitor, Nonsteroidal Anti-inflammatory Drug Start: 01-26-2020 End: 02-25-2023 take 1 tablet by mouth once daily aspirin, enteric coated (ASPIRIN, ENTERIC COATED) 81 mg EC tablet Take 1 tablet by mouth once daily. 0 01/26/2020 02/25/2023 Discontinued Comment on above: Take 1 tablet by mouth once daily. iv contrast (will be provided with radiology test) (3 sources) Start: 08-03-2023 End: 08-04-2023 iv contrast (will be provided with radiology test) Indications: Biliary cyst , Pancreatic cyst MRI PANC/JOSE M Inject, intravenously, once for 1 dose. No IV access, insert saline lock prior to the beginning of sedation, infusion, injection of imaging exam. Discontinue saline lock post exam. If Pt. has a central line or IVAD, may access for administration according to line specific nursing protocol. Once exam is complete flush line and de-access according to line specific nursing protocol in the MR contrast administration guidelines link. 1 Each 0 08/03/2023 08/04/2023 Start: 07-04-2022 End: 07-05-2022 iv contrast (will be provide d with radiology test) Indications: Pancreatic cyst MRI PANC/JOSE M Inject, intravenously, once for 1 dose. No IV access, insert saline lock prior to the beginning of sedation, infusion, injection of imaging exam. Discontinue saline lock post exam. If Pt. has a central line or IVAD, may access for administration according to line specific nursing protocol. Once exam is complete flush line and de-access according to line specific nursing protocol in the MR contrast administration guidelines link. 1 Each 0 07/04/2022 07/05/2022 Active Start: 05-21-2022 End: 05-22-2022 iv contrast (will be provide d with radiology test) Indications: Pancreatic cyst MRI Pancreas Inject, intravenously, once for 1 dose. No IV access, insert saline lock prior to the beginning of sedation, infusion, injection of imaging exam. Discontinue saline lock post exam. If Pt has a central line or IVAD, may access for administration according to line specific nursing protocol. Once exam is complete flush line and de-access according to line specific nursing protocol in the MR contrast administration guidelines link. 1 Each 0 05/21/2022 05/22/2022 Active Comment on above: MRI Pancreas Inject, intravenously, once for 1 dose. No IV access, insert saline lock prior to the beginning of sedation, infusion, injection of imaging exam. Discontinue saline lock post exam. If Pt has a central line or IVAD, may access for administration according to line specific nursing protocol. Once exam is complete flush line and de-access according to line specific nursing protocol in the MR contrast administration guidelines link. MRI PANC/JOSE M Inject, intravenously, once for 1 dose. No IV access, insert saline lock prior to the beginning of sedation, infusion, injection of imaging exam. Discontinue saline lock post exam. If Pt. has a central line or IVAD, may access for administration according to line specific nursing protocol. Once exam is complete flush line and de-access according to line specific nursing protocol in the MR contrast administration guidelines link. metoprolol tartrate 25 mg oral tablet (20 sources) beta-Adrenergic Juan Luis Start: 11-08-2024 End: 12-13-2024 Metoprolol Tartrate 25 mg tablet Discontinued 12.5 mg PO TWICE A DAY 180 3 November 08, 2024 9:29am December 13, 2024 4:07pm Start: 10-18-2024 End: 11-08-2024 take 1 tablet by mouth twice daily Metoprolol Tartrate 25 mg tablet Discontinued 25 mg PO TWICE A DAY 180 October 18, 2024 10:26am November 08, 2024 9:30am Start: 07-06-2024 End: 07-21-2024 take 1 tablet by mouth twice daily Metoprolol Tartrate 100 mg tablet Discontinued 100 mg PO TWICE A DAY 180 July 06, 2024 9:27am July 21, 2024 2:08pm Start: 03-21-2024 End: 10-18-2024 take 1 tablet by mouth twice daily Metoprolol Tartrate 50 mg tablet Discontinued 50 mg PO TWICE A DAY 180 July 21, 2024 2:08pm October 18, 2024 10:26am Start: 03-15-2024 End: 03-24-2024 take 1 tablet by mouth twice daily metoprolol tartrate 37.5 mg tab Take 1 tablet by mouth two times a day. 03/22/2024 03/24/2024 Discontinued Start: 03-04-2024 End: 03-23-2024 take 1 tablet by mouth twice daily Metoprolol Tartrate 25 mg Tablet Discontinued 25 mg PO TWICE A DAY 120 60 0 March 04, 2024 12:00am March 23, 2024 11:06am [place]-3 Fatty Acids 1,000 mg capsule (4 sources) Start: 03-14-2024 End: 07-21-2024 take 1 capsule by mouth once daily [place]-3 Fatty Acids 1,000 mg capsule Discontinued 1000 mg PO daily March 14, 2024 1:00am July 21, 2024 1:38pm Etedprhgq-Gyjtavg-Qxc nesium capsule (4 sources) Start: 03-01-2024 End: 07-21-2024 Tplfwamsu-Nqatgth-Quyaln ium capsule Discontinued 1 NMA PO DAILY March 01, 2024 12:00am July 21, 2024 1:38pm supplement Start: 03-01-2024 End: 07-21-2024 Vrgqqftjm-Lydmdal-Tpzwaizfk capsule Discontinued 1 NMA PO DAILY March 01, 2024 12:00am July 21, 2024 1:38pm Problems Active Problems Problem Classification Problem Date Documented Da te Episodic/Chronic Abdominal pain (7 sources) Right upper quadrant pain; Translations: [Right upper quadrant pain] Onset: 09-16-2022 Episodic Biliary tract disease (1 source) Cyst of biliary tract; 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] 08-03-2023 Chronic Cardiac dysrhythmias (20 sources) Cardiac arrhythmia; Translations: [Cardiac arrhythmia, unspecified] Onset: 03-15-2024 03-01-2024 Chronic Chronic kidney disease (20 sources) Chronic kidney disease stage 3A ; Translations: [Stage 3a chronic kidney disease] Onset: 01-30-2021 01-30-2021 Chronic Chronic kidney disease (1 source) Chronic kidney disease; Translations: [Stage 3a chronic kidney disease (HCC)] Onset: 01-30-2021 Conditions associated with dizziness or vertigo (20 sources) Benign paroxysmal positional vertigo; Translations: [Benign paroxysmal vertigo, unspecified ear] Onset: 07-14-2018 07-14-2018 Episodic Disorders of lipid metabolism (20 sources) Mixed hyperlipidemia; Translations: [Mixed hyperlipidemia] Onset: 02-25-2022 Chronic Essential hypertension (20 sources) Essential hypertension; Translations: [Essential (primary) hypertension] Onset: 07-14-2018 07-14-2018 Chronic Heart valve disorders (20 sources) Aortic valve stenosis; Translations: [Nonrheumatic aortic (valve) stenosis] Onset: 08-05-2018 08-12-2018 Chronic Heart valve disorders (20 sources) Heart murmur; Translations: [Cardiac murmur, unspecified] Onset: 07-14-2018 07-14-2018 Episodic Menopausal disorders (20 sources) Primary ovarian failure; Translations: [Other primary ovarian failure] Onset: 07-14-2018 07-14-2018 Chronic Occlusion or stenosis of precerebral arteries (20 sources) Bilateral stenosis of carotid arteries; Translations: [Occlusion and stenosis of bilateral carotid arteries] Onset: 08-05-2018 02-06-2021 Chronic Osteoporosis (20 sources) Senile osteoporosis; Translations: [Age-related osteoporosis without current pathological fracture] Onset: 08-05-2018 08-12-2018 Chronic Other aftercare (4 sources) Long-term current use of drug therapy; Translations: [Encounter for therapeutic drug level monitoring] 02-07-2025 Episodic Other aftercare (2 sources) Other residential (current) drug therapy; Translations: [On amiodarone therapy] Onset: 12-14-2024 Episodic Other aftercare (1 source) Encounter for therapeutic drug level monitoring; Translations: [Encounter for therapeutic drug level monitoring] Onset: 03-07-2025 Episodic Other aftercare (1 source) terminal supervisor (current) use of anticoagulants; Translations: [terminal supervisor (current) use of anticoagulants] Onset: 03-07-2025 Episodic Other diseases of kidney and ureters (20 sources) Cyst of kidney; Translations: [Cyst of kidney, acquired] Onset: 07-14-2018 07-14-2018 Episodic Other diseases of kidney and ureters (1 source) Disorder of kidney and ureter, unspecified; Translations: [Renal insufficiency] Onset: 02-16-2025 Episodic Other ear and sense organ disorders (2 sources) Tinnitus of left ear; Translations: [Tinnitus, left ear] 02-25-2023 Episodic Other ear and sense organ disorders (1 source) Impacted cerumen of bilateral ears; Translations: [Impacted cerumen, bilateral] 03-01-2024 Episodic Other lower respiratory disease (2 sources) Other forms of dyspnea; Translations: [Other forms of dyspnea] Onset: 03-07-2025 Episodic Other non-epithelial cancer of skin (4 sources) Malignant neoplasm of skin; Translations: [Unspecified malignant neoplasm of skin, unspecified] 03-14-2024 Episodic Pancreatic disorders (not diabetes) (20 sources) Cyst of pancreas; Translations: [Cyst of pancreas] Onset: 07-14-2018 01-30-2021 Episodic Screening and history of mental health and substance abuse codes (2 sources) Encounter for screening examination for other mental health and behavioral disorders; Translations: [Encounter for screening for depression] Onset: 02-07-2025 Episodic Thyroid disorders (1 source) Hypothyroidism, unspecified; Translations: [Hypothyroidism, acquired] Onset: 02-09-2025 Chronic Unclassified (1 source) Chronic atrial fibrillation, unspecified; Translations: [Chronic atrial fibrillation (HCC)] Onset: 03-15-2024 Past or Other Problems Problem Classification Problem Date Documented Date Episodic/Chronic Complications of surgical procedures or medical care (20 sources) Complication of anesthesia; Translations: [Other complications of anesthesia, initial encounter] Onset: 05-04-2018 11-26-2020 Episodic Diabetes mellitus without complication (20 sources) High hemoglobin A1c level; Translations: [Other abnormal glucose] Onset: 01-20-2019 01-20-2019 Episodic Intestinal infection (1 source) Other specified bacterial intestinal infections; Translations: [H. pylori infection] Onset: 12-12-2022 Episodic Other aftercare (20 sources) Patient encounter status; Translations: [Other termite inspector (current) drug therapy] Onset: 07-14-2018 01-26-2020 Episodic Other skin disorders (8 sources) Skin lesion; Translations: [Disorder of the skin and subcutaneous tissue, unspecified] Onset: 02-19-2022 Episodic Results Test Name Value Interpretation Reference Range Facility Basic Metabolic Profile (BMP )on 03-07-2025 BUN/CRE 25.1 RATIO High 02-20 [facility] Comment on above: Performed By: #### L 100.0100, L300.4310, L300.3900, L500.2500 #### [facility] [address] [place], [address] Calcium [Mass/Vol] 9.8 mg/dL Normal 7.6-11.0 [facility] Comment on above: Performed By: #### L 100.0100, L300.4310, L300.3900, [id number] #### [facility] [address] [place], [address] Chloride [Moles/Vol] 102 mmol/L Normal 98-108 [facility] Comment on above: Performed By: #### L 100.0100, [id number], [id number], [id number] #### [facility] [address] [place], [address] CO2 [Moles/Vol] 26.1 mmol/L Normal 21.0-32.0 [facility] Comment on above: Performed By: #### L 100.0100, [id number], L300.3900, [id number] #### [facility] [address] [place], [address] Creatinine [Mass/Vol] 1.40 mg/dL High 0.70-1.20 [facility] Comment on above: Performed By: #### L 100.0100, [id number], [id number], [id number] #### [facility] [address] [place], [address] GAP 12 Normal 5-15 [facility] Comment on above: Performed By: #### L 100.0100, [id number], L300.3900, [id number] #### [facility] [address] [place], [address] GFR/1.73 sq M.predicted among non-blacks MDRD (S/P/Bld) [Vol rate/Area] 37 mL/min/{1.73_m2} Low >60 [facility] Comment on above: Result Comment: mL/m in/1.73m2 CKD-EPI Creatinine Equation (2020) Performed By: #### L 100.0100, [id number], L300.3900, [id number] #### [facility] [address] [place], [address] Glucose [Mass/Vol] 102 mg/dL High 70-99 [facility] Comment on above: Performed By: #### L 100.0100, [id number], [id number], [id number] #### [facility] [address] [place], [address] Potassium [Moles/Vol] 4.3 mmol/L Normal 3.3-5.1 [facility] Comment on above: Result Comment: Hemo lysis present, Results??could be affected. ?? Performed By: #### L 100.0100, [id number], L300.3900, [id number] #### [facility] [address] [place], [address] Sodium [Moles/Vol] 140 mmol/L Normal 133-145 [facility] Comment on above: Performed By: #### L 100.0100, [id number], [id number], [id number] #### [facility] [address] [place], [address] Urea nitrogen [Mass/Vol] 35 mg/dL High 4-19 [facility] Comment on above: Performed By: #### L 100.0100, [id number], [id number], [id number] #### [facility] [address] [place], [address] CBC W/Diff, Automatedon 11-0 Absolute Lymph 2.72 X10 3/uL Normal 0.83-4.51 [facility] Comment on above: Performed By: #### L 100.0100, [id number], [id number], [id number] #### [facility] [address] [place], [address] Absolute Neut 5.8 X10 3/uL Normal 2.0-7.7 [facility] Comment on above: Performed By: #### L 100.0100, [id number], [id number], [id number] #### [facility] [address] [place], [address] Basophils/100 WBC (Bld) 0.5 % Normal 0-1 [facility] Comment on above: Performed By: #### L 100.0100, L300.4310, L300.3900, L500.2500 #### [facility] [address] [place], [address] Eosinophils/100 WBC (Bld) 0.5 % Normal 0-5 [facility] Comment on above: Performed By: #### L 100.0100, L300.4310, L300.3900, L500.2500 #### [facility] [address] [place], [address] Erythrocyte distribution width (RBC) [Ratio] 13.2 % Normal 11.6-14.6 [facility] Comment on above: Performed By: #### L 100.0100, L300.4310, L300.3900, L500.2500 #### [facility] [address] [place], [address] Hematocrit (Bld) [Volume fraction] 43.0 % Normal 37-47 [facility] Comment on above: Performed By: #### L 100.0100, L300.4310, L300.3900, L500.2500 #### [facility] [address] [place], [address] Hemoglobin (Bld) [Mass/Vol] 14.3 g/dL Normal 12.0-15.0 [facility] Comment on above: Performed By: #### L 100.0100, L300.4310, L300.3900, L500.2500 #### [facility] [address] [place], [address] IG% 0.200 Normal 0.0-0.9 [facility] Comment on above: Result Comment: IG% - Immature Granulocytes (promyelocytes, myelocytes and metamyelocytes) > 1% indicates that a LEFT SHIFT is Present. Performed By: #### L 100.0100, L300.4310, L300.3900, L500.2500 #### [facility] [address] [place], [address] Lymphocytes/100 WBC (Bld) 29.8 % Normal 19-41 [facility] Comment on above: Performed By: #### L 100.0100, L300.4310, L300.3900, L500.2500 #### [facility] [address] [place], [address] MCH (RBC) [Entitic mass] 33.6 pg High 27.0-32.0 [facility] Comment on above: Performed By: #### L 100.0100, L300.4310, L300.3900, L500.2500 #### [facility] [address] [place], [address] MCHC (RBC) [Mass/Vol] 33.3 g/dL Normal 32-36 [facility] Comment on above: Performed By: #### L 100.0100, L300.4310, L300.3900, L500.2500 #### [facility] [address] [place], [address] MCV (RBC) [Entitic vol] 100.9 fL High 81-99 [facility] Comment on above: Performed By: #### L 100.0100, L300.4310, L300.3900, L500.2500 #### [facility] [address] [place], [address] Monocytes/100 WBC (Bld) 5.0 % Normal 0-10 [facility] Comment on above: Performed By: #### L 100.0100, L300.4310, L300.3900, L500.2500 #### [facility] [address] [place], [address] Neutrophils/100 WBC (Bld) 64.0 % Normal 47-70 [facility] Comment on above: Performed By: #### L 100.0100, L300.4310, L300.3900, L500.2500 #### [facility] [address] [place], [address] Nucleated RBC (Bld) [#/Vol] 0 10*3/uL Normal 0-5 [facility] Comment on above: Performed By: #### L 100.0100, L300.4310, L300.3900, L500.2500 #### [facility] [address] [place], [address] Platelet mean volume (Bld) [Entitic vol] 11.3 fL Normal 6.2-12.0 [facility] Comment on above: Performed By: #### L 100.0100, L300.4310, L300.3900, L500.2500 #### [facility] [address] [place], [address] Platelets (Bld) [#/Vol] 261 10*3/uL Normal 150-450 [facility] Comment on above: Performed By: #### L 100.0100, L300.4310, L300.3900, L500.2500 #### [facility] [address] [place], [address] RBC (Bld) [#/Vol] 4.26 10*6/uL Normal 4.2-5.4 [facility] Comment on above: Performed By: #### L 100.0100, L300.4310, L300.3900, L500.2500 #### [facility] [address] [place], [address] RDW SD 49.1 fl High 35.1-43.9 [facility] Comment on above: Performed By: #### L 100.0100, L300.4310, L300.3900, L500.2500 #### [facility] [address] [place], [address] WBC (Bld) [#/Vol] 9.1 10*3/uL Normal 4.4-11.0 [facility] Comment on above: Performed By: #### L 100.0100, L300.4310, L300.3900, L500.2500 #### [facility] [address] [place], [address] Cardiology Visit Reporton Cardiology Visit Report [facility] [address] [place] [address] OFFICE VISIT Date of Service: 03/07/25 MR#: [id number] Acct: [id number] Name: ISIS MALDONADO Rep #: [id number] : 1940 Provider: AMRIK Richmond Age/Sex: 84/F Location: [facility] Status: Signed HPI HPI History of Present Illness Details: The patient is an 84-year-old female with atrial fibrillation with RVR, HTN, and severe aortic stenosis, presenting for follow-up. Her atrial fibrillation was first identified during a prior hospitalization for palpitations. She was initially started on Eliquis, amlodipine, diltiazem, lisinopril, metoprolol, and hydrochlorothiazide. Due to persistent fatigue, her metoprolol dose was reduced and amiodarone was added for rate control. Cardioversion was previously deferred due to concerns about anesthetic allergies, which have since been clarified and her medication allergy list updated. She was noted to have moderate aortic stenosis in 2023. An echocardiogram in February 2025 demonstrated an ejection fraction of 60% with severe aortic stenosis, a peak valve gradient of 65 mmHg, and a mean aortic valve gradient of 41 mmHg. Patient does feel better with her decreased medications. She is not fatigued. She was able to do all of her activities that she previously was able to do. She does not have any worsening shortness of breath. She does not have any chest pain. She does not have any near syncopal or syncopal episodes. She does occasionally have positional dizziness. At her last office visit we had discussed pursuing a diagnostic heart catheterization to further evaluate her severe aortic stenosis. Patient had declined. However she called back a few weeks ago and wanted to pursue a diagnostic heart catheterization to further assess. She is here today to talk about this. Intake Vital Signs 02/07/25 13:50 03/07/25 07:51 03/07/25 10:05 Height 5 ft 1 in 5 ft 1 in Weight: 134 lb 135 lb BMI 25.3 25.4 BP 167/80 H 187/74 H Blood Pressure Location Rt brachial Rt brachial Position Sitting Sitting Respiration 18 Pulse 74 Pulse Source Monitor Pulse Oximetry (%) 97 Oxygen Delivery Method room air Intake Visit Reasons: SEE NOTES Inhalation Therapy Aides Teacher Required: No Accompanied by: Daughter Is patient in pain?: No Allergies Anesthetics - Amide Type - Select A (anesthesia) Allergy (Severe, Verified 03/07/25 09:59) Other diphenhydramine Adverse Reaction (Mild, Verified 03/07/25 09:59) Other fentanyl Adverse Reaction (Mild, Verified 03/07/25 09:59) Other midazolam Adverse Reaction (Mild, Verified 03/07/25 09:59) Other Medications ???Medication ???Instructions ???Recorded ???Confirmed ???Type amlodipine 5 mg tablet 5 mg PO DAILY #90 tabs 06/14/24 Rx amiodarone 200 mg tablet 200 mg PO QDAY #30 tabs 08/12/24 1 05/07/24 Rx apixaban 2.5 mg tablet (Eliquis) 2.5 mg PO BID #180 tabs 12/13/24 1 05/07/24 Rx hydrochlorothiazide 25 mg tablet 25 mg PO DAILY blood pressure #90 01/26/25 03/07/25 Rx tabs calcium carbonate 500 mg PO QDAY 02/07/25 03/07/25 H istory lisinopril 30 mg tablet 30 mg PO QDAY blood pressure #90 02/07/25 03/07/25 Rx tabs magnesium citrate 100 mg capsule 100 mg PO QDAY 02/07/25 03/07/25 H istory meclizine 25 mg tablet 25 mg PO QDAY PRN 02/07/25 5 History potassium bicarbonate-citric acid 25 meq PO QDAY 02/07/25 03/07/25 History 25 mEq effervescent tablet levothyroxine 50 mcg tablet 50 mcg PO QDAY 03/07/25 03/07/25 H istory Ejection fraction %: 65 Have you fallen in the past year?: No Nurse's Note: EKG obtained today for amiodarone therapy. Pt is having severe SOB when she lays down to go to sleep. Pt brought a log of BP measurements from 02/01/25 to 03/07/25. [facility] Medical History PAF (paroxysmal atrial fibrillation) Atrial fibrillation with rapid ventricular response Pancreatic cyst Mixed hyperlipidemia Heart murmur Elevated hemoglobin A1c BPV (benign positional vertigo) Bilateral renal cysts Bilateral carotid artery stenosis Aortic valve stenosis Osteoporosis Stage 3a chronic kidney disease (CKD) Skin cancer HTN (hypertension) Surgical History Hx of oophorectomy Hx of appendectomy Family History Mother Heart disease CHF (congestive heart failure) Sister CAD (coronary artery disease) Hypertension Cancer Father CVA (cerebral vascular accident) Brother CAD (coronary artery disease) CVA (cerebral vascular accident) Social History Smoking Status: Never smoker alcohol intake: never substance use type: does (more content not included)... Normal [facility] Chest PA and Lateralon 03-07 Chest PA and Lateral [facility] [address], [place] [id number] Chest PA and Lateral MR#: [id number] Acct: [id number] Name: ISIS MALDONADO Rep #: [id number] : 1940 F 84 From: Dilan Sousa MD PCP: Dr. Noel Rossi MD Status: REG CLI Study: Chest PA and Lateral Date of Exam: 03/07/25 Exam# [id number] Ordering Dr: Megan Silverman PA PROCEDURE: CHEST PA AND LATERAL 03/07/2025 REASON FOR EXAM: [place] TECHNIQUE: Procedure Code: RADCXR Modality: DX Procedure: CHEST PA AND LATERAL COMPARISON: None FINDINGS: There is mild cardiomegaly without overt CHF. There is no focal infiltrate or consolidation. There is no pneumothorax or effusion. Aortic calcifications are noted. There is no visible acute bony abnormality. RAD/Chest PA and Lateral IMPRESSION: There is mild cardiomegaly without overt CHF. Reading Location: [facility] CC: Dr. Noel Rossi MD; AMRIK Jimenez Hotel Room Attendant: Signed Normal [facility] Partial Thromboplast Timeon 03-07-2025 aPTT Coag (Bld) [Time] 27.8 s Normal 24.1-36.2 [facility] Comment on above: Performed By: #### L 100.0100, L300.4310, L300.3900, L500.2500 #### [facility] [address] [facility] [place], [address] Prothrombin Time w/INRon INR Coag (PPP) [Relative time] 1.1 {INR} Normal [facility] Comment on above: Performed By: #### L 100.0100, L300.4310, L300.3900, L500.2500 #### [facility] [address] [place], [address] PT Coag (PPP) [Time] 13.9 s Normal 11.7-14.9 [facility] Comment on above: Performed By: #### L 100.0100, L300.4310, L300.3900, L500.2500 #### [facility] [address], [address] [facility] 02-22-2025 [facility] Telephone (4CQ) ISIS MALDONADO ([id number]) 1940 F Date Time Provider Department 02/22/25 NOEL ROSSI 4CQ During your visit today, we recorded the following information about you: Leona Bazan 02/22/2025 9:55 AM Signed Pt daughter Shanice Kumar [phone] called in stating that Dr. Ruiz's office can not get her in till 06/06/24. Asking if this is ok or if someone can call that office to see if they can get her in sooner or suggest another provider. Please advise. Thank you Bianka Redd MA 02/22/2025 1:31 PM Signed Does pt need seen sooner or do you prefer pt to reach out to another Provider's office. Please advise. HILARY Otero Jeffrey A, MD 02/23/2025 9:54 AM Signed Let Shanice know I'm ok with the appt in Jun. I would advise her to reach back out to them to see if Ada can be placed on a cancellation list. Maxim Alfaro LPN 02/23/2025 1:37 PM Signed Left message for pt's daughter Shanice to call and speak with a Triage Nurse. DONIS Jensen Sherill A, LPN 02/28/2025 10:08 AM Signed Left additional message for pt's daughter to contact office. DONIS Jensen M Robin, LALITHA 02/28/2025 12:56 PM Signed Daughter Shanice returned call and reviewed message below. Shanice agreeable. Allergies As of Date: 02/22/2025 (No Known Allergies) Date Reviewed: 02/16/2025 Reviewed by: Bianka Redd MA - Fully Assessed Reason for Visit: Patient Question [4967] Prescriptions as of 02/28/2025 - levothyroxine (SYNTHROID) 50 mcg tablet Take 1 tablet by mouth once daily. - hydroCHLOROthiazide 25 mg tablet Take 1 tablet by mouth once daily. - amiodarone (PACERONE) 200 mg tablet Take 1 tablet by mouth once daily. Per [facility] - apixaban (ELIQUIS) 2.5 mg tab(s) Take 1 tablet by mouth two times a day. Per [facility] - amLODIPine (NORVASC) 5 mg tablet Take 1 tablet by mouth once daily. Per [facility] - lisinopril (ZESTRIL) 30 mg tablet Take 1 tablet by mouth once daily. Changed to once a day per [facility] 03/23/2024 - POTASSIUM-99 ORAL Take by mouth. - MAGNESIUM CHLORIDE ORAL Take by mouth. - Ngmku-0-GEM-EPA-Fish Oil 1,200 (144-216) mg cap Take 2 capsules by mouth once daily. 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] 07/14/2018 Age-related osteoporosis without current pathol*08/05/2018 Bilateral carotid artery stenosis [I65.23] 08/05/2018 Aortic valvar stenosis [I35.0] 08/05/2018 Elevated hemoglobin A1c [R73.09] 01/20/2019 Medication management [Z79.899] 01/26/2020 Anesthesia complication [T88.59XA] 2019 Stage 3b chronic kidney disease (HCC) [N18.32] 01/30/2021 Advanced care planning/counseling discussion [Z*02/19/2022 Skin cancer screening [Z12.83] 02/19/2022 Hyperlipidemia, mixed [E78.2] 02/25/2022 Chronic atrial fibrillation (HCC) [I48.20] 03/15/2024 On amiodarone therapy [Z79.899] 12/14/2024 Hypothyroidism, acquired [E03.9] 02/09/2025 Encounter Status:Closed by Juan JASON on 02/28/25 Normal [facility] Basic metabolic 2000 panelon 02-16-2025 Anion gap [Moles/Vol] 13 mmol/L Normal 8-15 [facility] Comment on above: Order Comment: Speci men Type: BLOOD SPECIMENOrdering Facility: [facility] Address: [address] [place] [address] Performed By: #### 2 4321-2 ####[facility] LABCLIA [id number] [place] [address] [place] Calcium [Mass/Vol] 9.6 mg/dL Normal 8.5-10.2 [facility] Comment on above: Order Comment: Speci men Type: BLOOD SPECIMENOrdering Facility: [facility] Address: [address] [place] [address] Performed By: #### 2 4321-2 ####[facility] LABCLIA [id number] [place] [address] [place] Chloride [Moles/Vol] 101 mmol/L Normal 98-107 [facility] Comment on above: Order Comment: Speci men Type: BLOOD SPECIMENOrdering Facility: [facility] Address: [address] [place] [address] Performed By: #### 2 4321-2 ####[facility] LABCLIA [id number] [place] [address] [place] CO2 [Moles/Vol] 24 mmol/L Normal 22-30 [facility] Comment on above: Order Comment: Speci men Type: BLOOD SPECIMENOrdering Facility: [facility] Address: [address] [place] [address] Performed By: #### 2 4321-2 ####[facility] LABCLIA [id number] [place] [address] [place] Creatinine [Mass/Vol] 1.29 mg/dL High 0.58-0.96 [facility] Comment on above: Order Comment: Nicole infante Type: BLOOD SPECIMENOrdering Facility: [facility] Address: [address] [place] [address] Performed By: #### 2 4321-2 ####[facility] LABCLIA [id number] [place] [address] [place] eGFRcr SerPlBld CKD-EPI 2020 41 mL/min/1.73m??? Low >=60 [facility] Comment on above: Order Comment: Nicole infante Type: BLOOD SPECIMENOrdering Facility: [facility] Address: [address] [place] [address] Result Comment: Shea mated Glomerular Filtration Rate (eGFR) is calculated using the 2020 CKD-EPI creatinine equation. This equation utilizes serum creatinine, sex, and age as parameters. The creatinine assay has traceable calibration to isotope dilution-mass spectrometry. Refer to KDIGO guidelines for clinical interpretation. In patients with unstable renal function, e.g. those with acute kidney injury, the eGFR may not accurately reflect actual GFR. Performed By: #### 2 4321-2 ####[facility] LABCLIA [id number] [place] [address] [place] Glucose [Mass/Vol] 190 mg/dL High 74-99 [facility] Comment on above: Order Comment: Nicole infante Type: BLOOD SPECIMENOrdering Facility: [facility] Address: [address] [place] [address] Result Comment: The [place] Diabetes Association (ADA) provides guidance for cutoff values for fasting glucose and random glucose. The ADA defines fasting as no caloric intake for at least 8 hours. Fasting plasma glucose results between 100 to 125 mg/dL indicate increased risk for diabetes (prediabetes). Fasting plasma glucose results greater than or equal to 126 mg/dL meet the criteria for diagnosis of diabetes. In the absence of unequivocal hyperglycemia, results should be confirmed by repeat testing. In a patient with classic symptoms of hyperglycemia or hyperglycemic crisis, random plasma glucose results greater than or equal to 200 mg/dL meet the criteria for diagnosis of diabetes. Reference: Standards of Medical Care in Diabetes 2016, [place] Diabetes Association. Diabetes Care. 2016.39(Suppl 1). Performed By: #### 2 4321-2 ####[facility] LABCLIA [id number] [address] [place] Potassium [Moles/Vol] 3.7 mmol/L Normal 3.7-5.1 [facility] Comment on above: Order Comment: Hugoi men Type: BLOOD SPECIMENOrdering Facility: [facility] Address: [address] [place] [address] Performed By: #### 2 4321-2 ####[facility] LABIA [id number] [address] [place] Sodium [Moles/Vol] 138 mmol/L Normal 136-144 [facility] Comment on above: Order Comment: Nicole infante Type: BLOOD SPECIMENOrdering Facility: [facility] Address: [address] [place] [address] Performed By: #### 2 4321-2 ####[facility] LABCLIA [id number] [place] [address] [place] Urea nitrogen [Mass/Vol] 24 mg/dL High 7-21 [facility] Comment on above: Order Comment: Nicole infante Type: BLOOD SPECIMENOrdering Facility: [facility] Address: [address] [place] [address] Performed By: #### 2 4321-2 ####[facility] LABIA [id number] [place] [id number] [place] CNOVon 02-16-2025 CNOV Office Visit (FAMPWS ) ISIS MALDONADO ([id number]) 1940 F Date Time Provider Department 02/16/25 11:40 AM NOEL ROSSI During your visit today, we recorded the following information about you: Pulse Respiration Blood pressure Weight 78/minute 16/minute 158/78 61.1 kg Noel Rossi MD 02/16/2025 2:24 PM Signed Chief Complaint Patient presents with: Follow Up: Cardiac surgical discussion HPI Isis Maldonado is a 84 year old female who presents here today for possible cardiac surgical discussion. Pt recently seen in office and had follow up shortly after last visit with [facility]iology at [facility]. Patient has been having cardiac work up done. Based off findings of all the testing that was completed they recommended surgical intervention with TAVR procedure. Patient wanted to discuss the procedure, her OV with Cardiology, the testing she had completed, and overall what to expect. Thinking about doing this procedure but wanted to talk with PCP first. Pt was asked to bring in material she received from [employer]. Isis is a 84-year-old female with a history of a heart murmur, sever presenting for consultation regarding a potential TAVR procedure. Isis has a history of a heart murmur since age 16, which has progressively worsened over time. She is currently considering a TAVR procedure due to the narrowing of her heart valve. She expresses concerns about the anesthesia to be used during the procedure, noting a previous experience where she had difficulty waking up after a colonoscopy. She also inquires about the possibility of needing a stent and whether this can be done at the same time as the TAVR procedure. Isis reports a history of AFib, which has been controlled, but she experienced dyspnea and orthopnea during episodes of AFib. She is currently on amiodarone, which has led to hypothyroidism. She has been prescribed levothyroxine 50 mcg daily to manage this condition. Recent lab results show elevated triglycerides at 227 mg/dL and LDL at 150 mg/dL, with HDL at 59 mg/dL. She has been advised to make dietary changes to lower her cholesterol levels. We also discussed starting Crestor and she has declined at this time. She is also increasing her water intake to improve kidney function, drinking 64 ounces of water daily. Past medical history, appointments, medications, allergies reviewed. Previous Medical History PAST MEDICAL HISTORY Diagnosis Date Age-related osteoporosis without current pathological fracture 08/05/2018 Spine and R hip August 2018 Anesthesia complication 2018 She had issues with slow awakening after her colonoscopy 2 years ago where they used midazolam, fentanyl and Benadryl at the time. Aortic valvar stenosis 08/05/2018 Echo 08/02/18 Mild aortic valve stenosis and regurgitation. Bilateral carotid artery stenosis 08/05/2018 US 08/05/18 bilateral 20-39% Bilateral renal cysts 07/14/2018 MRI: 07/02/2017: benign BPV (benign positional vertigo) 07/14/2018 Chronic atrial fibrillation (HCC) 03/15/[address] Nowak: [facility]. Delayed emergence from general anesthesia Elevated hemoglobin A1c 01/20/2019 Essential hypertension 07/14/2018 Heart murmur 07/14/2018 Known since she was 16 yo. 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 On amiodarone therapy 12/14/2024 Pancreatic cyst (HCC) 07/14/2018 Seen on MRI 07/02/2018, Pancreatic tail: 12 mm and 4 mm. Recommendation to repeat MRI in a year. Skin cancer screening 02/19/[address] Castañeda- Dermatology routinely for skin checks. Stage 3a chronic kidney disease (HCC) 01/30/2021 Previous Surgical History PAST SURGICAL HISTORY Procedure Laterality Date APPENDECTOMY 1952 COLONOSCOPY FLX DX W/COLLJ SPEC WHEN PFRMD 08/26/2018 Colonoscopy OOPHORECTOMY PARTIAL OR TOTAL 1966 one ovary removed due to a cyst. benign Family History FAMILY HISTORY Problem Relation Age of Onset Heart Mother congestive heart failure Stroke Father Cancer Sister on the neck, maybe lymphoma Coronary Artery Disease Sister 75 Hypertension Sister Prostate Cancer Brother 77 Coronary Artery Disease Brother 67 Stroke Brother Coronary Artery Disease Sister 70 Cancer Sister lymphoma Hypertension Sister Alzheimer's Disease No Family History Colon Cancer No Family History Breast Cancer No Family History Ovarian cancer No Family History Uterine Cancer No Family History Diabetes No Family History Hyperlipidemia No Family History Kidney Disease No Family History Seizures No Family History Thyroid No Family History Patient Allergies ALLERGIES No Known Allergies Current Medications Current Outpatient Medications on File Prior to Visit Medication Sig levothyroxine (SYNTHROID) 50 mcg tablet Take 1 tablet by mouth once daily. hydro (more content not included)... Normal [facility] 02-08-2025 [facility] ISIS [facility]DON[facility] ([id number]) 1940 F Date Time Provider Department 02/08/25 NOEL ROSSI During your visit today, we recorded the following information about you: April Soler, LALITHA 02/08/2025 1:57 PM Signed Patient calling to update Dr. Rossi that she had an Echo completed on 02/01 and had a [facility] follow up to discuss results which was forwarded to Dr. Rossi. She states heart group discussed her having a diagnostic heart cath for TAVR consideration but she wishes to monitor situation for now since not having sx's. She will be seeing the heart group again in a few months. She states she has to make up her mind but she's not sure what to do. Patient just saw Dr. Rossi yesterday and doesn't see him again until February 2026, as of this time. Noel Rossi MD 02/08/2025 3:59 PM Signed Does she want to come in and talk about it. Bianka Redd MA 02/08/2025 4:08 PM Signed Call to pt and offered to schedule an appt with PCP to discuss. Pt would like to do this to discuss cardiac testing, OV with [facility], what to expect with TAVR procedure. She would like to have procedure done to get it over with but wants to know what to expect. I asked pt if they gave her information regarding this from Cardio and she said they did, but would like to speak with PCP. Appt scheduled , 02/16/25 at 11:40 am for 40 min due to pt wanting to discuss multiple things with Provider and concerns. HILARY Otero Jeffrey A, MD 02/08/2025 4:55 PM Signed Ask her to bring in the education material [facility] gave her Luci Ventura RN 02/08/2025 5:43 PM Signed Pt called and is notified of providers message. Pt voices understanding. Luci Ventura RN Allergies As of Date: 02/08/2025 (No Known Allergies) Date Reviewed: 02/07/2025 Reviewed by: Noel Rossi MD - Fully Assessed Reason for Visit: Patient Update [1234] Prescriptions as of 02/08/2025 - hydroCHLOROthiazide 25 mg tablet Take 1 tablet by mouth once daily. - amiodarone (PACERONE) 200 mg tablet Take 1 tablet by mouth once daily. Per [facility] - apixaban (ELIQUIS) 2.5 mg tab(s) Take 1 tablet by mouth two times a day. Per [facility] - amLODIPine (NORVASC) 5 mg tablet Take 1 tablet by mouth once daily. Per [facility] - lisinopril (ZESTRIL) 30 mg tablet Take 1 tablet by mouth once daily. Changed to once a day per [facility] 03/23/2024 - POTASSIUM-99 ORAL Take by mouth. - MAGNESIUM CHLORIDE ORAL Take by mouth. - Wlkgo-0-ZXZ-EPA-Fish Oil 1,200 (144-216) mg cap Take 2 capsules by mouth once daily. 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] 07/14/2018 Age-related osteoporosis without current pathol*08/05/2018 Bilateral carotid artery stenosis [I65.23] 08/05/2018 Aortic valvar stenosis [I35.0] 08/05/2018 Elevated hemoglobin A1c [R73.09] 01/20/2019 Medication management [Z79.899] 01/26/2020 Anesthesia complication [T88.59XA] 2019 Stage 3a chronic kidney disease (HCC) [N18.31] 01/30/2021 Advanced care planning/counseling discussion [Z*02/19/2022 Skin cancer screening [Z12.83] 02/19/2022 Hyperlipidemia, mixed [E78.2] 02/25/2022 Chronic atrial fibrillation (HCC) [I48.20] 03/15/2024 On amiodarone therapy [Z79.899] 12/14/2024 Encounter Status:Closed by BIANKA REDD on 02/08/25 Normal [facility] CBC W Auto Differential pane l (Bld)on 02-07-2025 Basophils (Bld) [#/Vol] 0.06 10*3/uL Normal <0.11 [facility] Comment on above: Order Comment: Speci men Type: BLOOD SPECIMENOrdering Facility: [facility] Address: [address] [place] [address] Performed By: #### 5 7021-8 ####[facility] LABCLIA [id number] [place] [address] [place] Basophils/100 WBC (Bld) 0.7 % Normal [facility] Comment on above: Order Comment: Speci men Type: BLOOD SPECIMENOrdering Facility: [facility] Address: [address] [place] [address] Performed By: #### 5 7021-8 ####[facility] LABCLIA [id number] [place] [address] [place] Differential cell count method Nom (Bld) Auto Normal [facility] Comment on above: Order Comment: Speci men Type: BLOOD SPECIMENOrdering Facility: [facility] Address: [address] [place] [address] Performed By: #### 5 7021-8 ####[facility] LABCLIA [id number] [place] [id number] [place] Eosinophils (Bld) [#/Vol] 0.04 10*3/uL Normal <0.46 [facility] Comment on above: Order Comment: Speci men Type: BLOOD SPECIMENOrdering Facility: [facility] Address: [address] [place] [address] Performed By: #### 5 7021-8 ####[facility] LABCLIA [id number] [address], [place] [address] [place] Eosinophils/100 WBC (Bld) 0.4 % Normal [facility] Comment on above: Order Comment: Speci men Type: BLOOD SPECIMENOrdering Facility: [facility] Address: [address] [place] [address] Performed By: #### 5 7021-8 ####[facility] LABCLIA [id number] [address], [place] [address] [place] Erythrocyte distribution width (RBC) [Ratio] 12.6 % Normal 11.5-15.0 [facility] Comment on above: Order Comment: Speci men Type: BLOOD SPECIMENOrdering Facility: [facility] Address: [address] [place] [address] Performed By: #### 5 7021-8 ####[facility] LABIA [id number] [place] [address] [place] Hematocrit (Bld) [Volume fraction] 43.6 % Normal 36.0-46.0 [facility] Comment on above: Order Comment: Speci men Type: BLOOD SPECIMENOrdering Facility: [facility] Address: [address] [place] [address] Performed By: #### 5 7021-8 ####[facility] LABIA [id number] [place] [address] [place] Hemoglobin (Bld) [Mass/Vol] 14.6 g/dL Normal 11.5-15.5 [facility] Comment on above: Order Comment: Speci men Type: BLOOD SPECIMENOrdering Facility: [facility] Address: [address] [place] [address] Performed By: #### 5 7021-8 ####[facility] LABIA [id number] [place] [address] [place] Immature granulocytes (Bld) [#/Vol] 10*3/uL Normal <0.10 [facility] Comment on above: Order Comment: Speci men Type: BLOOD SPECIMENOrdering Facility: [facility] Address: [address] [place] [address] Performed By: #### 5 7021-8 ####[facility] LABCLIA [id number] [place] [address] [place] Immature granulocytes/100 WBC (Bld) 0.2 % Normal [facility] Comment on above: Order Comment: Speci men Type: BLOOD SPECIMENOrdering Facility: [facility] Address: [address] [place] [address] Performed By: #### 5 7021-8 ####[facility] LABCLIA [id number] [address], [place] [address] [place] Lymphocytes (Bld) [#/Vol] 2.54 10*3/uL Normal 1.00-4.00 [facility] Comment on above: Order Comment: Speci men Type: BLOOD SPECIMENOrdering Facility: [facility] Address: [address] [place] [address] Performed By: #### 5 7021-8 ####[facility] LABCLIA [id number] [place] [address] [place] Lymphocytes/100 WBC (Bld) 27.9 % Normal [facility] Comment on above: Order Comment: Speci men Type: BLOOD SPECIMENOrdering Facility: [facility] Address: [address] [place] [address] Performed By: #### 5 7021-8 ####[facility] LABCLIA [id number] [place] [address] [place] MCH (RBC) [Entitic mass] 34.4 pg High 26.0-34.0 [facility] Comment on above: Order Comment: Speci men Type: BLOOD SPECIMENOrdering Facility: [facility] Address: [address] [place] [address] Performed By: #### 5 7021-8 ####[facility] LABCLIA [id number] [address], [place] [address] [place] MCHC (RBC) [Mass/Vol] 33.5 g/dL Normal 30.5-36.0 [facility] Comment on above: Order Comment: Speci men Type: BLOOD SPECIMENOrdering Facility: [facility] Address: [address] [place] [address] Performed By: #### 5 7021-8 ####[facility] LABCLIA [id number] [address], [place] [address] [place] MCV (RBC) [Entitic vol] 102.6 fL High 80.0-100.0 [facility] Comment on above: Order Comment: Speci men Type: BLOOD SPECIMENOrdering Facility: [facility] Address: [address] [place] [address] Performed By: #### 5 7021-8 ####[facility] LABIA [id number] [address], [place] [address] [place] Monocytes (Bld) [#/Vol] 0.50 10*3/uL Normal <0.87 [facility] Comment on above: Order Comment: Speci men Type: BLOOD SPECIMENOrdering Facility: [facility] Address: [address] [place] [address] Performed By: #### 5 7021-8 ####[facility] LABCLIA [id number] [address], [facility] [place] Monocytes/100 WBC (Bld) 5.5 % Normal [facility] Comment on above: Order Comment: Speci men Type: BLOOD SPECIMENOrdering Facility: [facility] Address: [address] [place] [address] Performed By: #### 5 7021-8 ####[facility] LABCLIA [id number] [address], [facility] [place] Neutrophils (Bld) [#/Vol] 5.93 10*3/uL Normal 1.45-7.50 [facility] Comment on above: Order Comment: Speci men Type: BLOOD SPECIMENOrdering Facility: [facility] Address: [address] [place] [address] Performed By: #### 5 7021-8 ####[facility] LABCLIA [id number] [facility] [place] [address] [place] Neutrophils/100 WBC (Bld) 65.3 % Normal [facility] Comment on above: Order Comment: Speci men Type: BLOOD SPECIMENOrdering Facility: [facility] Address: [address] [place] [address] Performed By: #### 5 7021-8 ####[facility] LABCLIA [id number] [place] [address] [place] Nucleated RBC (Bld) [#/Vol] 10*3/uL Normal <0.01 [facility] Comment on above: Order Comment: Speci men Type: BLOOD SPECIMENOrdering Facility: [facility] Address: [address] [place] [address] Performed By: #### 5 7021-8 ####[facility] LABCLIA [id number] [place] [address] [place] Nucleated RBC/100 WBC (Bld) [Ratio] 0.0 /100 WBC Normal [facility] Comment on above: Order Comment: Speci men Type: BLOOD SPECIMENOrdering Facility: [facility] Address: [address] [place] [address] Performed By: #### 5 7021-8 ####[facility] LABCLIA [id number] [place] [address] [place] Platelet mean volume (Bld) [Entitic vol] 11.0 fL Normal 9.0-12.7 [facility] Comment on above: Order Comment: Speci men Type: BLOOD SPECIMENOrdering Facility: [facility] Address: [address] [place] [address] Performed By: #### 5 7021-8 ####[facility] LABIA [id number] [place] [address] [place] Platelets (Bld) [#/Vol] 261 10*3/uL Normal 150-400 [facility] Comment on above: Order Comment: Speci men Type: BLOOD SPECIMENOrdering Facility: [facility] Address: [address] [place] [address] Performed By: #### 5 7021-8 ####[facility] LABIA [id number] [address] RBC (Bld) [#/Vol] 4.25 10*6/uL Normal 3.90-5.20 [facility] Comment on above: Order Comment: Speci men Type: BLOOD SPECIMENOrdering Facility: [facility] Address: [address] [place] [address] Performed By: #### 5 7021-8 ####[facility] LABIA [id number] [place] [address] [place] WBC (Bld) [#/Vol] 9.09 10*3/uL Normal 3.70-11.00 [facility] Comment on above: Order Comment: Speci men Type: BLOOD SPECIMENOrdering Facility: [facility] Address: [address] [place] [address] Performed By: #### 5 7021-8 ####[facility] [id number] [place] [id number] [facility] [place] CNOVon 02-07-2025 CNOV Office Visit (FAMPWS ) ISIS MALDONADO ([id number]) 1940 F Date Time Provider Department 02/07/25 10:00 AM NOEL ROSSI During your visit today, we recorded the following information about you: Pulse Respiration Blood pressure Weight 78/minute 16/minute 120/64 60.9 kg Height 1.549 m Noel Rossi MD 02/07/2025 11:27 AM Signed Isis Samaria Maldonado is a 84 year old female here for a Medicare wellness visit. Medicare Health Risk Assessment General Health Exercise: Minutes/Day 30 min Exercise: Days/Week 2 days Alcohol: Daily Use Never Alcohol: Drinks/Day Patient does not drink Alcohol: 6 or more drinks Never Feel off balance Yes (Notices some at bedtime when getting up.) Concerns: Teeth/Dentures Yes Concerns: Sexual function Yes Troubled by feelings None of the above Frequency: Eating healthy diet Nearly every day ADLs requiring help None of the above Safety precautions in home/vehicle No Smoke, vape, chews tobacco No Difficulty hearing Yes, I wear a hearing aid Difficulty seeing No Current Providers Specialists: I have reviewed specialist-related care of the patient in the medical record. Medical/Family history review Reviewed and updated problem list, medical/surgical/family /social history, medications, and allergies. Opioid use review Opioid Medications (last 90 days) No data to display Anxiety/Depression screening PHQ-2 Score: 1 (Lower risk for depression) ANMOL-2 Score: 2 (Lower risk for anxiety) Recommendation: no further intervention at this time Cognitive screening Mini Cog Score: 5 Cognitive screening reviewed and No further action needed (score 3-5). Mini-Cog Patient asked to remember the following three words: Banana, [place] and Chair Visuospatial/Executive Functioning: Clock drawin/2 (Normal clock with all number in correct sequence and position, hands are correct = 2 points, inability or refusal to draw a clock = 0) Three word recall: 3/3 Total score: 5/5 (Total score = word recall score + clock draw score) Functional Observation Was the patient's Timed Up AND Go test unsteady or >= 12 seconds? No Advance Care Planning Surrogate decision maker and/or advance care plan documented Measurements BP 120/64 Pulse 78 Resp 16 Ht 154.9 cm (5' 1) Wt 60.9 kg (134 lb 3.2 oz) BMI 25.36 kg/m? Vision Screening: Follows with optometry/ophthalmology Assessment/Plan Medicare annual wellness visit, subsequent (Z00.00) - Counseled on healthy diet and regular exercise - Fall avoidance information provided - Personalized prevention plan provided Chief Complaint Patient presents with: Medicare Wellness Exam HPI Isis Maldonado is a 84 year old female who presents here today for a medicare wellness and a routine follow up. Patient is here today with hx of HTN, CKD stage 3, Pancreatic cyst, elevated a1c, osteoporosis, coronary artery stenosis, aortic valve stenosis, BPPV, A. fib and those as below. Isis is accompanied by her daughter who is providing additional history. Isis reports feeling well overall. 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 She has a history of osteoporosis and was previously on Fosamax, which was discontinued due to jaw pain. She is currently taking calcium supplements and will discuss with her daughter whether to pursue further treatment options such as Prolia and getting a repeat DXA. She denies any current pain. She has a history of pancreatic cysts and was advised to undergo an MRI last year, which was not completed. She reports a previous endoscopic procedure where a cyst ruptured, leading to a decision not to pursue further imaging. She denies any abdominal pain, nausea, vomiting, or changes in bowel habits. She experiences occasional heartburn, which she attributes to dietary choices, specifically pie consumption. She monitors her blood pressure daily, with readings typically in the 110s/60s range. She denies any recent fevers, colds, or headaches. She has not experienced any changes in vision or hearing since her medication was adjusted. She denies any nasal or throat issues, neck lumps or swelling, wheezing, dyspnea, hemoptysis, chest pain, or lower extremity edema. She has not felt any palpitations since her last cardioversion. She denies any dysuria or hematuria but reports a longstanding increase in urinary frequency. She denies any unusual muscle or joint aches, skin lesions, rashes, or sores. She reports easy bruising, which she attributes to her blood thinner medication. She has not noticed any changes in her tolerance to heat or cold, increased thirst, syncope, seizures, or tremors. Past medical history, appointments, medications, allergies reviewed. Previous Medical History PAST MEDICAL HISTORY Diagnosis Date (more content not included)... Normal [facility] Cardiology Visit Reporton Cardiology Visit Report [facility] [address] [place] [address] OFFICE VISIT Date of Service: 02/07/25 MR#: [id number] Acct: [id number] Name: ISIS MALDONADO Rep #: [id number] : 1940 Provider: AMRIK Richmond Age/Sex: 84/F [facility] Status: Signed HPI HPI History of Present Illness Details: The patient is an 84-year-old female with atrial fibrillation with RVR, HTN, and severe aortic stenosis, presenting for follow-up. Her atrial fibrillation was first identified during a prior hospitalization for palpitations. She was initially started on Eliquis, amlodipine, diltiazem, lisinopril, metoprolol, and hydrochlorothiazide. Due to persistent fatigue, her metoprolol dose was reduced and amiodarone was added for rate control. Cardioversion was previously deferred due to concerns about anesthetic allergies, which have since been clarified and her medication allergy list updated. She was noted to have moderate aortic stenosis in 2023. An echocardiogram in February 2025 demonstrated an ejection fraction of 60% with severe aortic stenosis, a peak valve gradient of 65 mmHg, and a mean aortic valve gradient of 41 mmHg. Patient does feel better with her decreased medications. She is not fatigued. She was able to do all of her activities that she previously was able to do. She does not have any worsening shortness of breath. She does not have any chest pain. She does not have any near syncopal or syncopal episodes. She does occasionally have positional dizziness. Intake Vital Signs 12/13/24 15:40 02/07/25 13:50 Height 5 ft 1 in 5 ft 1 in Weight: 132 lb 134 lb BMI 24.9 25.3 BP 160/88 H Blood Pressure Location Lt brachial Position Sitting Respiration 16 Pulse 50 L Pulse Source Monitor Intake Visit Reasons: F/U rescheduled from March, echo Inhalation Therapy Aides Teacher Required: No Accompanied by: Daughter Is patient in pain?: No Allergies Anesthetics - Amide Type - Select A (anesthesia) Allergy (Severe, Verified 02/07/25 14:12) Other diphenhydramine Adverse Reaction (Mild, Verified 02/07/25 14:12) Other fentanyl Adverse Reaction (Mild, Verified 02/07/25 14:12) Other midazolam Adverse Reaction (Mild, Verified 02/07/25 14:12) Other Medications ???Medication ???Instructions ???Recorded ???Confirmed ???Type amlodipine 5 mg tablet 5 mg PO DAILY #90 tabs 06/14/24 Rx amiodarone 200 mg tablet 200 mg PO QDAY #30 tabs 08/12/24 1 Rx apixaban 2.5 mg tablet (Eliquis) 2.5 mg PO BID #180 tabs 12/13/24 1 Rx hydrochlorothiazide 25 mg tablet 25 mg PO DAILY blood pressure #90 01/26/25 02/07/25 Rx tabs calcium carbonate 500 mg PO QDAY 02/07/25 02/07/25 H istory lisinopril 30 mg tablet 30 mg PO QDAY blood pressure #90 02/07/25 02/07/25 Rx tabs magnesium citrate 100 mg capsule 100 mg PO QDAY 02/07/25 02/07/25 H istory meclizine 25 mg tablet 25 mg PO QDAY PRN 02/07/25 5 History potassium bicarbonate-citric acid 25 meq PO QDAY 02/07/25 02/07/25 History 25 mEq effervescent tablet Ejection fraction %: 65 Have you fallen in the past year?: No Nurse's Note: Pt is okay seeing a student for her visit today. [facility] Medical History Aortic valve stenosis Atrial fibrillation with rapid ventricular response Bilateral carotid artery stenosis Bilateral renal cysts BPV (benign positional vertigo) Elevated hemoglobin A1c Heart murmur HTN (hypertension) Mixed hyperlipidemia Osteoporosis PAF (paroxysmal atrial fibrillation) Pancreatic cyst Skin cancer Stage 3a chronic kidney disease (CKD) Surgical History Hx of appendectomy Hx of oophorectomy Family History Mother Heart disease CHF (congestive heart failure) Sister CAD (coronary artery disease) Hypertension Cancer Father CVA (cerebral vascular accident) Brother CAD (coronary artery disease) CVA (cerebral vascular accident) Social History Smoking Status: Never smoker alcohol intake: never substance use type: does not use ROS Const Const: Negative for fatigue, weakness or headache(s) Eyes Eyes: Negative for change in vision ENT ENT: Positive for dizziness (A month or two between her dizziness) and balance problems; Negative for headache(s) or Nosebleed/epistaxis Cardio Chest Pain: No Palpitations: No Edema: Bilateral Resp Respiratory: Negative for SOB with activity GI GI: Positive for heartburn; Negative nausea, vomiting or bright, red blood in stools : Negative for hematuria Musc Musc: Positive for balance problems Ne (more content not included)... Normal [facility] Comprehensive metabolic 2000 panelon 02-07-2025 Albumin [Mass/Vol] 4.4 g/dL Normal 3.9-4.9 [facility] Comment on above: Order Comment: Speci men Type: BLOOD SPECIMENOrdering Facility: [facility] Address: [address] [place] [address] Performed By: #### 2 4323-8, LIPNF, 6-3 ####[facility] LABCLIA [id number] [place] [address] [place] ALP [Catalytic activity/Vol] 105 U/L Normal 34-123 [facility] Comment on above: Order Comment: Speci men Type: BLOOD SPECIMENOrdering Facility: [facility] Address: [address] [place] [address] Performed By: #### 2 4323-8, LIPNF, 3016-3 ####[facility] LABCLIA [id number] [place] [address] [place] ALT [Catalytic activity/Vol] 16 U/L Normal 7-38 [facility] Comment on above: Order Comment: Speci men Type: BLOOD SPECIMENOrdering Facility: [facility] Address: [address] [place] [address] Performed By: #### 2 4323-8, LIPNF, 6-3 ####[facility] LABCLIA [id number] [place] [address] [place] Anion gap [Moles/Vol] 16 mmol/L High 8-15 [facility] Comment on above: Order Comment: Speci men Type: BLOOD SPECIMENOrdering Facility: [facility] Address: [address] [place] [address] Performed By: #### 2 4323-8, LIPNF, 3015-3 ####[facility] LABCLIA [id number] [place] [address] [place] AST [Catalytic activity/Vol] 24 U/L Normal 13-35 [facility] Comment on above: Order Comment: Speci men Type: BLOOD SPECIMENOrdering Facility: [facility] [facility] Address: [address] [place] [address] Performed By: #### 2 4323-8, LIPNF, 3015-3 ####[facility] LABCLIA [id number] [place] [address] [place] Bilirubin [Mass/Vol] 0.4 mg/dL Normal 0.2-1.3 [facility] Comment on above: Order Comment: Speci men Type: BLOOD SPECIMENOrdering Facility: [facility] Address: [address] [place] [address] Performed By: #### 2 4323-8, LIPNF, 3015-3 ####[facility] LABCLIA [id number] [place] [id number] [place] Calcium [Mass/Vol] 10.0 mg/dL Normal 8.5-10.2 [facility] Comment on above: Order Comment: Speci men Type: BLOOD SPECIMENOrdering Facility: [facility] Address: [address] [place] [address] Performed By: #### 2 4323-8, LIPNF, 6-3 ####[facility] LABCLIA [id number] [place] [address] [place] Chloride [Moles/Vol] 102 mmol/L Normal 98-107 [facility] Comment on above: Order Comment: Speci men Type: BLOOD SPECIMENOrdering Facility: [facility] Address: [address] [place] [address] Performed By: #### 2 4323-8, LIPNF, 3016-3 ####[facility] [id number] [place] [address] [place] CO2 [Moles/Vol] 22 mmol/L Normal 22-30 [facility] Comment on above: Order Comment: Speci men Type: BLOOD SPECIMENOrdering Facility: [facility] Address: [address] [place] [address] Performed By: #### 2 4323-8, LIPNF, 3016-3 ####[facility] [id number] [place] [address] [place] Creatinine [Mass/Vol] 1.34 mg/dL High 0.58-0.96 [facility] Comment on above: Order Comment: Speci men Type: BLOOD SPECIMENOrdering Facility: [facility] Address: [address] [place] [address] Performed By: #### 2 4323-8, LIPNF, 3016-3 ####[facility] [id number] [place] [address] [place] eGFRcr SerPlBld CKD-EPI 2020 39 mL/min/1.73m??? Low >=60 [facility] Comment on above: Order Comment: Speci men Type: BLOOD SPECIMENOrdering Facility: [facility] Address: [address] [place] [address] Result Comment: Shea mated Glomerular Filtration Rate (eGFR) is calculated using the 2020 CKD-EPI creatinine equation. This equation utilizes serum creatinine, sex, and age as parameters. The creatinine assay has traceable calibration to isotope dilution-mass spectrometry. Refer to KDIGO guidelines for clinical interpretation. In patients with unstable renal function, e.g. those with acute kidney injury, the eGFR may not accurately reflect actual GFR. Performed By: #### 2 4323-8, BRIDGER, 3015-3 ####[facility] LABCLIA [id number] [facility] [address] [id number], [place] [address] [place] Glucose [Mass/Vol] 103 mg/dL High 74-99 [facility] Comment on above: Order Comment: Nicole infante Type: BLOOD SPECIMENOrdering Facility: [facility] Address: [address] [place] [address] Result Comment: The [place] Diabetes Association (ADA) provides guidance for cutoff values for fasting glucose and random glucose. The ADA defines fasting as no caloric intake for at least 8 hours. Fasting plasma glucose results between 100 to 125 mg/dL indicate increased risk for diabetes (prediabetes). Fasting plasma glucose results greater than or equal to 126 mg/dL meet the criteria for diagnosis of diabetes. In the absence of unequivocal hyperglycemia, results should be confirmed by repeat testing. In a patient with classic symptoms of hyperglycemia or hyperglycemic crisis, random plasma glucose results greater than or equal to 200 mg/dL meet the criteria for diagnosis of diabetes. Reference: Standards of Medical Care in Diabetes 2016, [place] Diabetes Association. Diabetes Care. 2016.39(Suppl 1). Performed By: #### 2 4323-8, BRIDGER, 3015- ####[facility] LABCLIA [id number] [place] [address] [id number], [place] [address] [place] Potassium [Moles/Vol] 4.3 mmol/L Normal 3.7-5.1 [facility] Comment on above: Order Comment: Nicole infante Type: BLOOD SPECIMENOrdering Facility: [facility] Address: [address] [place] [address] Performed By: #### 2 4323-8, BRIDGER, 3015-3 ####[facility] LABCLIA [id number] [facility] [address] [id number], [place] [address] [place] Protein [Mass/Vol] 7.8 g/dL Normal 6.3-8.0 [facility] Comment on above: Order Comment: Speci men Type: BLOOD SPECIMENOrdering Facility: [facility] Address: [address] [place] [address] Performed By: #### 2 4323-8, LIPCLIFF, 3015-3 ####[facility] LABCLIA [id number] [address] [address] [place] Sodium [Moles/Vol] 140 mmol/L Normal 136-144 [facility] Comment on above: Order Comment: Speci men Type: BLOOD SPECIMENOrdering Facility: [facility] Address: [address] [place] [address] Performed By: #### 2 4323-8, LIPCLIFF, 3015-3 ####[facility] LABCLIA [id number] [place] [address] [place] Urea nitrogen [Mass/Vol] 28 mg/dL High 7-21 [facility] Comment on above: Order Comment: Speci men Type: BLOOD SPECIMENOrdering Facility: [facility] Address: [address] [place] [address] Performed By: #### 2 4323-8, LIPNF, 3015-3 ####[facility] LABCLIA [id number] [address] [address] [place] HbA1c (Bld)on 02-07-2025 Average glucose Estimated from glycated hemoglobin (Bld) [Mass/Vol] 108 mg/dL Normal [facility] Comment on above: Order Comment: Speci men Type: BLOOD SPECIMENOrdering Facility: [facility] Address: [address] [place] [address] Result Comment: eAG: (Estimated average glucose) is a calculated value from HgbA1c and is professional healthcare representative of the average blood glucose level in the last 2-3 month period. Performed By: #### 5 5454-3 ####[facility] LABIA [id number] [address] [address] [place] HbA1c (Bld) [Mass fraction] 5.4 % Normal 4.3-5.6 [facility] Comment on above: Order Comment: Speci men Type: BLOOD SPECIMENOrdering Facility: [facility] Address: [address] [place] [address] Result Comment: [place] Diabetes Association guidelines indicate that patients with HgbA1c in the range 5.7-6.4% are at increased risk for development of diabetes, and intervention by lifestyle modification may be beneficial. HgbA1c greater or equal to 6.5% is considered diagnostic of diabetes. Performed By: #### 5 5454-3 ####[facility] LABCLIA [id number] [address] OF [place] LIPID PANEL, NONFASTINGon Cholesterol [Mass/Vol] 255 mg/dL High <200 [facility] Comment on above: Order Comment: Hugoi men Type: BLOOD SPECIMENOrdering Facility: [facility] Address: [address] [place] [address] Result Comment: <200 mg/dL, Desirable 200-239 mg/dL, Borderline high >239 mg/dL, High Performed By: #### 2 4323-8, LIPNF, 3016-3 ####[facility] LABCLIA [id number] [address] [place] HDL CHOLESTEROL, NF 59 mg/dL Normal >39 [facility] Comment on above: Order Comment: Speci men Type: BLOOD SPECIMENOrdering Facility: [facility] Address: [address] [place] [address] Result Comment: 40-5 9 mg/dL, Acceptable >59 mg/dL, High: Negative risk factor for coronary heart disease <40 mg/dL, Low: Positive risk factor for coronary heart disease Performed By: #### 2 4323-8, LIPNF, 3016-3 ####[facility] LABCLIA [id number] [facility] ERK [id number], [facility] [place] LDL CHOLESTEROL CALCULATED, NF 155 mg/dL High <100 [facility] Comment on above: Order Comment: Speci men Type: BLOOD SPECIMENOrdering Facility: [facility] Address: [address] [place] [address] Result Comment: <100 mg/dL, Optimal 100-129 mg/dL, Near optimal/above optimal 130-159 mg/dL, Borderline high 160-189 mg/dL, High >189 mg/dL, Very high Secondary prevention optimal LDL Cholesterol levels are recommended to be <70 mg/dL LDL cholesterol is calculated using the Joshi-NIH equation. Performed By: #### 2 4323-8, LIPNF, 3015-3 ####[facility] LABIA [id number] [address] [place] LDL/HDL RATIO, NF 2.63 mg/dL High <2.54 [facility] Comment on above: Order Comment: Nicole arelis Type: BLOOD SPECIMENOrdering Facility: [facility] Address: [address] [place] [address] Result Comment: Refcarolina puckett: 1. National Cholesterol Education Program ATP III Guideline At-A-Glance Quick Desk Reference: National Heart, Lung, and Blood [place]io. National Institutes of Health. 2001: NIH Publication No. 01-3305. 2. An International Atherosclerosis Society position paper: global recommendations for the management of dyslipidemia: executive summary, Atherosclerosis. 2014: 232(2):410-413. Performed By: #### 2 4323-8, LIPNF, 3015-3 ####[facility] LABIA [id number] [address] [place] NON HDL CHOL, NF 196 mg/dL High <130 [facility] Comment on above: Order Comment: Nicole infante Type: BLOOD SPECIMENOrdering Facility: [facility] Address: [address] [place] [address] Result Comment: <130 mg/dL, Optimal 130-159 mg/dL, Near optimal/above optimal 160-189 mg/dL, Borderline high 190-219 mg/dL, High >219 mg/dL, Very high Secondary prevention optimal non HDL Cholesterol levels are recommended to be <100 mg/dL Performed By: #### 2 4323-8, LIPNF, 3016-3 ####[facility] LABCLIA [id number] [address] [place] [address] [place] T CHOL/HDL RATIO NF 4.32 mg/dL Normal <5.10 [facility] Comment on above: Order Comment: Speci men Type: BLOOD SPECIMENOrdering Facility: [facility] Address: [address] [place] [address] Performed By: #### 2 4323-8, LIPNF, 3016-3 ####[facility] LABCLIA [id number] [address] [place] [address] [place] TRIGLYCERIDES, NF 227 mg/dL High <150 [facility] Comment on above: Order Comment: Speci men Type: BLOOD SPECIMENOrdering Facility: [facility] Address: [address] [place] [address] Result Comment: <150 mg/dL, Normal 150-199 mg/dL, Borderline high 200-499 mg/dL, High >499 mg/dL, Very high Performed By: #### 2 4323-8, LIPNF, 6-3 ####[facility] LABCLIA [id number] [place] [id number] [place] VLDL CHOLESTEROL, NF 43 mg/dL High <30 [facility] Comment on above: Order Comment: Speci men Type: BLOOD SPECIMENOrdering Facility: [facility] Address: [address] [place] [address] Performed By: #### 2 4323-8, LIPNF, 3016-3 ####[facility] LABCLIA [id number] [address] [place] [address] [place] TSH SerPl-aCncon 02-07-2025 TSH Qn 9.210 m[IU]/L High 0.270-4.200 [facility] Comment on above: Order Comment: Speci men Type: BLOOD SPECIMENOrdering Facility: [facility] Address: [address] [place] [address] Performed By: #### 2 4323-8, LIPNF, 3016-3 ####[facility] LABCLIA [id number] [facility] [address], [facility]95 [place] Urinalysis complete panel (U )on 02-07-2025 Bacteria LM.HPF (Urine sed) [#/Area] Negative Normal Negative [facility] Comment on above: Order Comment: Speci men Type: URINE SPECIMENOrdering Facility: [facility] Address: [address] [place] [address] Performed By: #### 2 4356-8 ####[facility] LABCLIA [id number] [facility] [address], [place] [address] [place] Bilirubin Ql (U) Negative Normal Negative [facility] Comment on above: Order Comment: Speci men Type: URINE SPECIMENOrdering Facility: [facility] Address: [address] [place] [address] Performed By: #### 2 4356-8 ####[facility] LABCLIA [id number] [facility] [address], [place] [address] [place] Clarity (Unsp spec) Clear Normal Clear [facility] Comment on above: Order Comment: Speci men Type: URINE SPECIMENOrdering Facility: [facility] Address: [address] [place] [address] Performed By: #### 2 4356-8 ####[facility] LABCLIA [id number] [address], [facility]95 [place] [facility] Color (U) Yellow Normal Yellow [facility] Comment on above: Order Comment: Speci men Type: URINE SPECIMENOrdering Facility: [facility] Address: [address] [place] [address] Performed By: #### 2 4356-8 ####[facility] LABCLIA [id number] [facility] [address], [facility]95 [place] Epithelial cells LM.HPF (Urine sed) [#/Area] None Seen Normal [facility] Comment on above: Order Comment: Speci men Type: URINE SPECIMENOrdering Facility: [facility] Address: [address] [place] [address] Performed By: #### 2 4356-8 ####[facility] LABCLIA [id number] [address] [place] [address] [place] Glucose Test strip (U) [Mass/Vol] Negative Normal Negative [facility] Comment on above: Order Comment: Speci men Type: URINE SPECIMENOrdering Facility: [facility] Address: [address] [place] [address] Performed By: #### 2 4356-8 ####[facility] LABCLIA [id number] [address], [facility]95 [place] Hemoglobin Ql (U) Negative Normal Negative [facility] Comment on above: Order Comment: Speci men Type: URINE SPECIMENOrdering Facility: [facility] Address: [address] [place] [address] Performed By: #### 2 4356-8 ####[facility] LABCLIA [id number] [address], [facility]95 [place] Hyaline casts (Urine sed) [#/Area] 0 /[LPF] Normal 0 /LPF [facility] Comment on above: Order Comment: Speci men Type: URINE SPECIMENOrdering Facility: [facility] Address: [address] [place] [address] Performed By: #### 2 4356-8 ####[facility] LABCLIA [id number] [address] [place] [address] [place] Ketones Ql (U) Negative Normal Negative [facility] Comment on above: Order Comment: Speci men Type: URINE SPECIMENOrdering Facility: [facility] Address: [address] [place] [address] Performed By: #### 2 4356-8 ####[facility] LABCLIA [id number] [address] [place] [address] [place] Leukocyte esterase Test strip Ql (U) Negative Normal Negative [facility] Comment on above: Order Comment: Speci men Type: URINE SPECIMENOrdering Facility: [facility] Address: [address] [place] [address] Performed By: #### 2 4356-8 ####[facility] LABCLIA [id number] [place] [address] [place] Nitrite Ql (U) Negative Normal Negative [facility] Comment on above: Order Comment: Speci men Type: URINE SPECIMENOrdering Facility: [facility] Address: [address] [place] [address] Performed By: #### 2 4356-8 ####[facility] LABCLIA [id number] [place] [address] [place] pH (U) 6.5 [pH] Normal 5.0-8.0 [facility] Comment on above: Order Comment: Speci men Type: URINE SPECIMENOrdering Facility: [facility] Address: [address] [place] [address] Performed By: #### 2 4356-8 ####[facility] LABIA [id number] [place] [address] [place] Protein (U) [Mass/Vol] 1+ Abnormal Negative [facility] Comment on above: Order Comment: Speci men Type: URINE SPECIMENOrdering Facility: [facility] Address: [address] [place] [address] Performed By: #### 2 4356-8 ####[facility] LABIA [id number] [place] [address] [place] RBC LM.HPF (Urine sed) [#/Area] 0-2 /HPF Normal 0-2 /HPF [facility] Comment on above: Order Comment: Speci men Type: URINE SPECIMENOrdering Facility: [facility] Address: [address] [place] [address] Performed By: #### 2 4356-8 ####[facility] LABIA [id number] [place] [address] [place] Specific gravity (U) [Rel density] 1.013 Normal 1.005-1.030 [facility] Comment on above: Order Comment: Speci men Type: URINE SPECIMENOrdering Facility: [facility] Address: [address] [place] [address] Performed By: #### 2 4356-8 ####[facility] [id number] [place] [id number] [place] Urobilinogen Ql (U) 0.2 EU/dL Normal 0.2-1.0 EU/dL [facility] Comment on above: Order Comment: Speci men Type: URINE SPECIMENOrdering Facility: [facility] Address: [address] [place] [address] Performed By: #### 2 4356-8 ####[facility] [id number] [place] [address] [place] WBC LM.HPF (Urine sed) [#/Area] 0-5 /HPF Normal 0-5 /HPF [facility] Comment on above: Order Comment: Speci men Type: URINE SPECIMENOrdering Facility: [facility] Address: [address] [place] [address] Performed By: #### 2 4356-8 ####[facility] [id number] [place] [id number] [place] Echo Completeon 02-01-2025 Echo Complete [facility] [address] [facility] [place] [address] Echo Complete 02/01/25 1308 MR#: [id number] Acct: [id number] Name: ISIS MALDONADO Rep #: [id number] : 1940 84 From: Neftali Nowak MD Attending Dr: Megan Silverman PA Status: REG CLI Ordering Dr: Megan Silverman PA Date: 05/28 Location: [facility] Sex: F C Admitted: Reason For Study Reason For Study: MURMUR Procedure This was a 2D Doppler, Color Flow transthoracic echocardiogram. Myocardial strain analysis was performed in this exam to aid in the assessment of cardiac function. Exam performed in department. Left Ventricle Normal LV size. Mild concentric left ventricular hypertrophy. The global longitudinal strain = -18.1 % (normal). The left ventricular ejection fraction is 60 %. No regional wall motion abnormalities noted. Right Ventricle Normal RV size. Normal systolic function. Atria Normal left atrium. Normal right atrium. Mitral Valve Normal mitral valve. Tricuspid Valve Normal tricuspid valve. Mild (1+) tricuspid valve insufficiency. Pulmonary artery systolic pressure is 40 mmHg. Aortic Valve Trisinus/trileaflet aortic valve. Mild focal aortic valve calcification. Peak aortic valve gradient 65 mmHg. Mean aortic valve gradient 41 mmHg. Severe aortic stenosis. Mild (1+) aortic valve insufficiency. Pulmonic Valve Normal pulmonic valve. Great Vessels Normal aortic root. The pulmonary artery is normal size. Inferior vena cava collapse with respiration. Pericardium/Pleural No pericardial effusion. MMode/2D Measurements Calculations LVIDd: 4.5 cm IVSd: 1.2 cm LVOT diam: 1.9 cm LVIDs: 2.1 cm LVPWd: 1.2 cm LVOT area: 2.7 cm2 RVDd: 3.4 cm FS: 52.0 % asc Aorta Diam: 3.6 cm LAV(MOD-bp): 46.6 ml LVAd ap4: 16.8 cm2 LAV(MOD-bp) Indexed: 29.5 ml/m2 LVLd ap4: 6.0 cm LAV(MOD-sp2): 57.8 ml EDV(MOD-sp4): 38.2 ml LAV(MOD-sp4): 34.6 ml EDV(sp4-el): 39.7 ml LVAs ap4: 7.5 cm2 LVLs ap4: 4.8 cm ESV(MOD-sp4): 10.0 ml ESV(sp4-el): 10.0 ml EF(MOD-sp4): 73.9 % EF(sp4-el): 74.7 % LVAd ap2: 15.0 cm2 SV(MOD-sp4): 28.3 ml SV(MOD-sp2): 23.3 ml LVLd ap2: 5.9 cm SI(MOD-sp4): 17.9 ml/m2 SI(MOD-sp2): 14.8 ml/m2 EDV(MOD-sp2): 32.5 ml EDV(sp2-el): 32.2 ml LVAs ap2: 7.1 cm2 LVLs ap2: 4.7 cm ESV(MOD-sp2): 9.2 ml ESV(sp2-el): 9.1 ml EF(MOD-sp2): 71.7 % SV(sp4-el): 29.7 ml Ao sinus diam: 3.[address] Junction: 2.4 cm LA dimension(2D): 4.2 cm LA A4 area: 15.7 cm2 RA A4 area: 12.0 cm2 TAPSE: 2.1 cm Time Measurements MV dec time: 0.13 sec Doppler Measurements Calculations MV E max robert: 107.8 cm/sec Lat Peak E' Robert: 11.2 cm/sec Med Peak E' Robert: 8.1 cm/sec MV A max robert: 68.8 cm/sec E/E' lat: 9.6 E/E' med: 13.2 MV E/A: 1.6 MV dec slope: 831.1 cm/sec2 Ao V2 max: 402.3 cm/sec AI max robert: 367.1 cm/sec Ao max P.3 mmHg AI max P.2 mmHg Ao V2 mean: 308.0 cm/sec AI dec slope: 217.4 cm/sec2 Ao mean P.3 mmHg AI P1/2t: 494.7 msec Ao V2 VTI: 98.2 cm AV (velocity ratio): 0.38 SANDI(I,D): 1.0 cm2 SANDI(V,D): 0.96 cm2 LV V1 max: 142.2 cm/sec SV(LVOT): 102.1 ml PA V2 max: 99.8 cm/sec LV V1 max P.1 mmHg LV V1 mean P.6 mmHg LV V1 mean: 100.6 cm/sec LV V1 VTI: 37.5 cm TR max robert: 305.5 cm/sec TR max P.4 mmHg ECHO/Echo Complete Interpretation Summary Normal LV size. The global longitudinal strain = -18.1 % (normal). The left ventricular ejection fraction is 60 %. Mean aortic valve gradient 41 mmHg. Mild focal aortic valve calcification. Peak aortic valve gradient 65 mmHg. Severe aortic stenosis. Ordering Physician: Megan Silverman Referring Physician: NOEL ROSSI Performed By: Isamar Hawthorne RDCS 02/01/252008 Date Neftali Nowak MD CC: Dr. Noel Rossi MD; AMRIK Jimenez Date Dictated: 02/01/25 (more content not included)... Normal [facility] Echocardiogram study reportO rdered By: Neftali Nowak on 02-01-2025 Study report [facility] [place] [address] Echo Complete 02/01/25 1308 MR#: [id number] Acct: [id number] Name: ISIS MALDONADO Rep #:[id number] : 1940 84 From: Neftali Rincon Attending Dr: AMRIK Jimenez Status: REG CLI Ordering Dr: Megan Silverman PA Date: 02/01/25 Location: [facility] Sex: F C Admitted: Reason For Study Reason For Study: MURMUR Procedure This was a 2D Doppler, Color Flow transthoracic echocardiogram. Myocardial strain analysis was performed in this exam to aid in the assessment of cardiac function. Exam performed in department. Left Ventricle Normal LV size. Mild concentric left ventricular hypertrophy. The global longitudinal strain = -18.1 % (normal). The left ventricular ejection fraction is 60 %. No regional wall motion abnormalities noted. Right Ventricle Normal RV size. Normal systolic function. Atria Normal left atrium. Normal right atrium. Mitral Valve Normal mitral valve. Tricuspid Valve Normal tricuspid valve. Mild (1+) tricuspid valve insufficiency. Pulmonary artery systolic pressure is 40 mmHg. Aortic Valve Trisinus/trileaflet aortic valve. Mild focal aortic valve calcification. Peak aortic valve gradient 65 mmHg. Mean aortic valve gradient 41 mmHg. Severe aortic stenosis. Mild (1+) aortic valve insufficiency. Pulmonic Valve Normal pulmonic valve. Great Vessels Normal aortic root. The pulmonary artery is normal size. Inferior vena cava collapse with respiration. Pericardium/Pleural No pericardial effusion. MMode/2D Measurements & Calculations LVIDd: 4.5 cm IVSd: 1.2 cm LVOT diam: 1.9 cm LVIDs: 2.1 cm LVPWd: 1.2 cm LVOT area: 2.7 cm2 RVDd: 3.4 cm FS: 52.0 % __ ___ asc Aorta Diam: 3.6 cm LAV(MOD-bp): 46.6 ml LVAd ap4: 16.8 cm2 LAV(MOD-bp) Indexed: 29.5 ml/m2 LVLd ap4: 6.0 cm LAV(MOD-sp2): 57.8 ml EDV(MOD-sp4): 38.2 ml LAV(MOD-sp4): 34.6 ml EDV(sp4-el): 39.7 ml LVAs ap4: 7.5 cm2 LVLs ap4: 4.8 cm ESV(MOD-sp4): 10.0 ml ESV(sp4-el): 10.0 ml EF(MOD-sp4): 73.9 % EF(sp4-el): 74.7 % LVAd ap2: 15.0 cm2 SV(MOD-sp4): 28.3 ml SV(MOD-sp2): 23.3 ml LVLd ap2: 5.9 cm SI(MOD-sp4): 17.9 ml/m2 SI(MOD-sp2): 14.8 ml/m2 EDV(MOD-sp2): 32.5 ml EDV(sp2-el): 32.2 ml LVAs ap2: 7.1 cm2 LVLs ap2: 4.7 cm ESV(MOD-sp2): 9.2 ml ESV(sp2-el): 9.1 ml EF(MOD-sp2): 71.7 % SV(sp4-el): 29.7 ml Ao sinus diam: 3.[address] Junction: 2.4 cm LA dimension(2D): 4.2 cm LA A4 area: 15.7 cm2 RA A4 area: 12.0 cm2 TAPSE: 2.1 cm Time Measurements MV dec time: 0.13 sec Doppler Measurements & Calculations MV E max robret: 107.8 cm/sec Lat Peak E' Robert: 11.2 cm/sec Med Peak E' Robert: 8.1 cm/sec MV A max robert: 68.8 cm/sec E/E' lat: 9.6 E/E' med: 13.2 MV E/A: 1.6 MV dec slope: 831.1 cm/sec2 Ao V2 max: 402.3 cm/sec AI max robert: 367.1 cm/sec Ao max P.3 mmHg AI max P.2 mmHg Ao V2 mean: 308.0 cm/sec AI dec slope: 217.4 cm/sec2 Ao mean P.3 mmHg AI P1/2t: 494.7 msec Ao V2 VTI: 98.2 cm AV (velocity ratio): 0.38 SANDI(I,D): 1.0 cm2 SANDI(V,D): 0.96 cm2 LV V1 max: 142.2 cm/sec SV(LVOT): 102.1 ml PA V2 max: 99.8 cm/sec LV V1 max P.1 mmHg LV V1 mean P.6 mmHg LV V1 mean: 100.6 cm/sec LV V1 VTI: 37.5 cm __ ___ TR max robert: 305.5 cm/sec TR max P.4 mmHg ECHO/Echo Complete Interpretation Summary Normal LV size. The global longitudinal strain = -18.1 % (normal). The left ventricular ejection fraction is 60 %. Mean aortic valve gradient 41 mmHg. Mild focal aortic valve calcification. Peak aortic valve gradient 65 mmHg. Severe aortic stenosis. Ordering Physician: Megan Silverman Referring Physician: NOEL ROSSI Performed By: Isamar Hawthorne RDCS 02/01/252008 Date _ Neftali Nowak MD CC: Dr. Noel Rossi MD; AMRIK Jimenez ~ Date Dictated: 02/01/25 1308 Date Transcribed: 02/01/252008 Hotel Room Attendant: Signed [facility] Work Phone: Cardiology Visit Reporton Cardiology Visit Report [facility] [address] [place] [address] OFFICE VISIT Date of Service: 12/13/24 MR#: [id number] Acct: [id number] Name: ISIS MALDONADO Rep #: [id number] : 1940 Provider: AMRIK Richmond Age/Sex: 84/F Location: [facility] Status: Signed HPI HPI History of Present Illness Details: Isis Maldonado is a 84-year-old lady who was recently discharged from [facility] emergency room in 03/2024, after she had presented with palpitations and generalized weakness she was noted to be in atrial fibrillation with a rapid ventricular response rate she did have a [id number] score of 3 she was started on Eliquis amlodipine diltiazem lisinopril and metoprolol and hydrochlorothiazide. She also has a history of hypertension. In the emergency room she was evaluated and treated with intravenous diltiazem. She had had a previous echocardiogram in February 2024 which demonstrated an ejection fraction of 65% the left atrium was mildly enlarged the aortic valve was trileaflet with focal calcification with a peak gradient of 45 mmHg and a mean gradient of 31 mmHg. There was bileaflet mitral valve thickening and mild mitral regurgitation. During this hospitalization she underwent a CT of her chest which demonstrated no evidence of PE of dissection she was treated with more medication and subsequently discharged for outpatient follow-up. Last month at her follow-up appointment she was noted to have an elevated heart rate of 142. She had stopped her metoprolol and Eliquis as she did not have any refills on these and was not aware that she was to continue with these. These were restarted 06/08/2024. EKG at from 07/06/2024 demonstrated atrial fibrillation with a heart rate of 122. She is not aware of her rhythm. We increased her metoprolol to 100 mg twice a day based on her EKG. At her last Visit she complained of fatigue. We decreased her metoprolol to 50 mg BID and added amiodarone 200 mg a day. With her fatigue at her last office visit we decreased her metoprolol. She states that this did help with her fatigue. She is not aware of her heart rate racing. In the past we have not done a cardioversion due to her allergies to anesthetics. She did update that list for us today. Pt feels that she is fatigued, but she feels that she is at baseline. Her BP at HR have been okay Intake Vital Signs 10/18/24 09:35 12/13/24 15:40 Height 5 ft 1 in 5 ft 1 in Weight: 132 lb BMI 24.9 BP 160/88 H Blood Pressure Location Lt brachial Position Sitting Respiration 16 Pulse 50 L Pulse Source Monitor Intake Visit Reasons: 8 WK FU Inhalation Therapy Aides Teacher Required: No Is patient in pain?: No Allergies Anesthetics - Amide Type - Select A (anesthesia) Allergy (Severe, Verified 12/13/24 15:42) Other diphenhydramine Adverse Reaction (Mild, Verified 12/13/24 15:42) Other fentanyl Adverse Reaction (Mild, Verified 12/13/24 15:42) Other midazolam Adverse Reaction (Mild, Verified 12/13/24 15:42) Other Medications ???Medication ???Instructions ???Recorded ???Confirmed ???Type hydrochlorothiazide 25 mg tablet 25 mg PO DAILY blood pressure 06/0512/13/24 History lisinopril 30 mg tablet 30 mg PO QDAY blood pressure #90 03/23/24 12/13/24 Rx tabs amlodipine 5 mg tablet 5 mg PO DAILY #90 tabs 06/14/24 Rx amiodarone 200 mg tablet 200 mg PO QDAY #30 tabs 08/12/24 0 12/13/24 Rx apixaban 2.5 mg tablet (Eliquis) 2.5 mg PO BID #180 tabs 12/13/24 0 12/13/24 Rx Ejection fraction %: 65 Have you fallen in the past year?: No PFSH Medical History Aortic valve stenosis Atrial fibrillation with rapid ventricular response Bilateral carotid artery stenosis Bilateral renal cysts BPV (benign positional vertigo) Elevated hemoglobin A1c Heart murmur HTN (hypertension) Mixed hyperlipidemia Osteoporosis PAF (paroxysmal atrial fibrillation) Pancreatic cyst Skin cancer Stage 3a chronic kidney disease (CKD) Surgical History Hx of appendectomy Hx of oophorectomy Family History Mother Heart disease CHF (congestive heart failure) Sister CAD (coronary artery disease) Hypertension Cancer Father CVA (cerebral vascular accident) Brother CAD (coronary artery disease) CVA (cerebral vascular accident) Social History Smoking Status: Never smoker alcohol intake: never substance use type: does not use ROS Const Const: Positive for fatigue; Negative for weakness, headache(s), daytime sleepiness or difficulty sleeping ENT ENT: Negative for headache(s), dizziness or Nosebleed/epistaxis Cardi (more content not included)... Normal [facility] Cardiology Visit Reporton Cardiology Visit Report [facility] [address] [place] [address] OFFICE VISIT Date of Service: 10/18/24 MR#: [id number] Acct: [id number] Name: ISIS MALDONADO Rep #: [id number] : 1940 Provider: AMRIK Richmond Age/Sex: 84/F Location: [facility] Status: Signed HPI HPI History of Present Illness Details: Isis Maldonado is a 83-year-old lady who was recently discharged from [facility] emergency room in 03/2024, after she had presented with palpitations and generalized weakness she was noted to be in atrial fibrillation with a rapid ventricular response rate she did have a [id number] score of 3 she was started on Eliquis amlodipine diltiazem lisinopril and metoprolol and hydrochlorothiazide. She also has a history of hypertension. In the emergency room she was evaluated and treated with intravenous diltiazem. She had had a previous echocardiogram in February 2024 which demonstrated an ejection fraction of 65% the left atrium was mildly enlarged the aortic valve was trileaflet with focal calcification with a peak gradient of 45 mmHg and a mean gradient of 31 mmHg. There was bileaflet mitral valve thickening and mild mitral regurgitation. During this hospitalization she underwent a CT of her chest which demonstrated no evidence of PE of dissection she was treated with more medication and subsequently discharged for outpatient follow-up. Last month at her follow-up appointment she was noted to have an elevated heart rate of 142. She had stopped her metoprolol and Eliquis as she did not have any refills on these and was not aware that she was to continue with these. These were restarted 06/08/2024. EKG at from 07/06/2024 demonstrated atrial fibrillation with a heart rate of 122. She is not aware of her rhythm. We increased her metoprolol to 100 mg twice a day based on her EKG. At her last Visit she complained of fatigue. We decreased her metoprolol to 50 mg BID and added amiodarone 200 mg a day. With her fatigue at her last office visit we decreased her metoprolol. She states that this did help with her fatigue. She is not aware of her heart rate racing. In the past we have not done a cardioversion due to her allergies to anesthetics. She did update that list for us today. Intake Vital Signs 07/06/24 08:06 07/21/24 07:47 10/18/24 09:25 10/18/24 09:35 Height 5 ft 1 in 5 ft 1 in 5 ft 1 in Weight: 128 lb BP 170/69 H Blood Pressure Location Lt brachial Position Sitting Respiration 18 Pulse 41 L Pulse Source Monitor Intake Visit Reasons: 3 M FU Inhalation Therapy Aides Teacher Required: No Accompanied by: Daughter Allergies Anesthetics - Amide Type - Select A (anesthesia) Allergy (Severe, Verified 10/18/24 09:32) Other diphenhydramine Adverse Reaction (Mild, Verified 10/18/24 09:32) Other fentanyl Adverse Reaction (Mild, Verified 10/18/24 09:32) Other midazolam Adverse Reaction (Mild, Verified 10/18/24 09:32) Other Medications ???Medication ???Instructions ???Recorded ???Confirmed ???Type hydrochlorothiazide 25 mg tablet 25 mg PO DAILY blood pressure 06/0510/18/24 History lisinopril 30 mg tablet 30 mg PO QDAY blood pressure #90 03/23/24 10/18/24 Rx tabs amlodipine 5 mg tablet 5 mg PO DAILY #90 tabs 06/14/24 Rx apixaban 2.5 mg tablet (Eliquis) 2.5 mg PO BID #180 tabs 07/06/24 0 10/18/24 Rx amiodarone 200 mg tablet 200 mg PO QDAY #30 tabs 08/12/24 0 10/18/24 Rx metoprolol tartrate 25 mg tablet 25 mg PO BID #180 tabs 10/18/24 Rx Have you fallen in the past year?: No PFSH Medical History (Updated 10/18/24 @ 10:39 by Megan ROWLEY, PA) PAF (paroxysmal atrial fibrillation) Atrial fibrillation with rapid ventricular response Pancreatic cyst Mixed hyperlipidemia Heart murmur Elevated hemoglobin A1c BPV (benign positional vertigo) Bilateral renal cysts Bilateral carotid artery stenosis Aortic valve stenosis Osteoporosis Stage 3a chronic kidney disease (CKD) Skin cancer HTN (hypertension) Surgical History Hx of oophorectomy Hx of appendectomy Family History Mother Heart disease CHF (congestive heart failure) Sister CAD (coronary artery disease) Hypertension Cancer Father CVA (cerebral vascular accident) Brother CAD (coronary artery disease) CVA (cerebral vascular accident) Social History Smoking Status: Never smoker alcohol intake: never substance use type: does not use ROS Const Const: Negative for fatigue or weakness Eyes Eyes: Negative for change in vision ENT ENT: Positive for dizziness (occ- has meclizine that is effective for her) and balance problems Cardio (more content not included)... Normal [facility] 12 Lead EKG performed by [facility] on 07-21-2024 12 Lead EKG performed by [facility] [address] [place] [address] 12 Lead EKG performed by [facility] 07/21/24 1339 MR#: [id number] Acct: [id number] Name: ISIS MALDONADO Rep #: [id number] : 1940 83 From: Megan Mera Attending Dr: AMRIK Jimenez Status: DEP AMB Ordering Dr: Megan Silverman Date: 07/03 Location: [facility] Sex: F C Admitted: [facility]/12 Lead EKG performed by [facility] ECG Report Interpretation ---Atrial fibrillation -irregular conduction Low voltage in limb leads. -RSR(V1) -nondiagnostic. - Diffuse nonspecific T-abnormality. ABNORMAL Electronically signed on 07/23/2024 at 11:09 by Neftali Nowak Software Version [id number] 07/23/24 1113 Date Megan ROWLEY CC: Dr. Noel Rossi MD Date Dictated: 07/21/241338 Date Transcribed: 07/21/241338 Hotel Room Attendant: JUAN DANIEL Signed Normal [facility] Cardiology Visit Reporton Cardiology Visit Report [facility] [address] [place] [address] OFFICE VISIT Date of Service: 07/21/24 MR#: [id number] Acct: [id number] Name: ISIS MALDONADO Rep #: [id number] : 1940 Provider: AMRIK Richmond Age/Sex: 83/F Location: [facility] Status: Signed HPI HPI History of Present Illness Details: Isis Maldonado is a 83-year-old lady who was recently discharged from [facility] emergency room in 03/2024, after she had presented with palpitations and generalized weakness she was noted to be in atrial fibrillation with a rapid ventricular response rate she did have a [id number]-WVVd score of 3 she was started on Eliquis amlodipine diltiazem lisinopril and metoprolol and hydrochlorothiazide. She also has a history of hypertension. In the emergency room she was evaluated and treated with intravenous diltiazem. She had had a previous echocardiogram in February 2024 which demonstrated an ejection fraction of 65% the left atrium was mildly enlarged the aortic valve was trileaflet with focal calcification with a peak gradient of 45 mmHg and a mean gradient of 31 mmHg. There was bileaflet mitral valve thickening and mild mitral regurgitation. During this hospitalization she underwent a CT of her chest which demonstrated no evidence of PE of dissection she was treated with more medication and subsequently discharged for outpatient follow-up. Last month at her follow-up appointment she was noted to have an elevated heart rate of 142. She had stopped her metoprolol and Eliquis as she did not have any refills on these and was not aware that she was to continue with these. These were restarted 06/08/2024. EKG at from 07/06/2024 demonstrated atrial fibrillation with a heart rate of 122. She is not aware of her rhythm. We increased her metoprolol to 100 mg twice a day based on her EKG. Pt notes that she is very fatigued. It takes her a bit to get things done. It is worse since increasing her metoprolol to 100 mg twice a day. In the past we have not done a cardioversion due to her allergies to anesthetics. She is not sure exactly what anesthetic she is allergic to. She states that 1 time while she had a colonoscopy they could not wake her up. She will call us back later on today or tomorrow with watch anesthetic she is allergic to. Intake Vital Signs 07/06/24 08:06 07/21/24 07:47 Height 5 ft 1 in 5 ft 1 in Weight: 35 lb BMI 6.6 BP 129/84 H Blood Pressure Location Lt brachial Position Sitting Respiration 20 H Pulse 123 H Pulse Source Monitor Intake Visit Reasons: SOB/Restlessness Inhalation Therapy Aides Teacher Required: No Is patient in pain?: No Allergies Anesthetics - Amide Type - Select A (anesthesia) Allergy (Severe, Verified 07/21/24 13:38) Other Medications ???Medication ???Instructions ???Recorded ???Confirmed ???Type hydrochlorothiazide 25 mg tablet 25 mg PO DAILY blood pressure 06/0507/21/24 History lisinopril 30 mg tablet 30 mg PO QDAY blood pressure #90 03/23/24 07/21/24 Rx tabs amlodipine 5 mg tablet 5 mg PO DAILY #90 tabs 06/14/24 Rx apixaban 2.5 mg tablet (Eliquis) 2.5 mg PO BID #180 tabs 07/06/24 0 07/21/24 Rx amiodarone 200 mg tablet 200 mg PO QDAY #30 tabs 07/21/24 0 07/21/24 Rx metoprolol tartrate 50 mg tablet 50 mg PO BID #180 tabs 07/21/24 Rx Ejection fraction %: 65 Have you fallen in the past year?: No PFSH Medical History (Updated 06/14/24 @ 09:48 by Megan ROWLEY, PA) Atrial fibrillation with rapid ventricular response Pancreatic cyst Mixed hyperlipidemia Heart murmur Elevated hemoglobin A1c BPV (benign positional vertigo) Bilateral renal cysts Bilateral carotid artery stenosis Aortic valve stenosis Osteoporosis Stage 3a chronic kidney disease (CKD) Skin cancer HTN (hypertension) Surgical History Hx of oophorectomy Hx of appendectomy Family History Mother Heart disease CHF (congestive heart failure) Sister CAD (coronary artery disease) Hypertension Cancer Father CVA (cerebral vascular accident) Brother CAD (coronary artery disease) CVA (cerebral vascular accident) Social History Smoking Status: Never smoker alcohol intake: never substance use type: does not use ROS Const Const: Negative for fatigue, weakness, headache(s) or frequent falls Eyes Eyes: Negative for blurry vision ENT ENT: Positive for dizziness; Negative for headache(s) or Nosebleed/epistaxis Cardio Chest Pain: No Palpitations: No Edema: None Muscle aches with walking: None Resp Respiratory: Positive for SOB with activity and SOB at rest; Negative for SOB orthopnea SOB lyin (more content not included)... Normal [facility] 12 Lead EKG performed by [facility] on 07-06-2024 12 Lead EKG performed by [address] [place] [address] 12 Lead EKG performed by [facility] 07/06/24813 MR#: [id number] Acct: [id number] Name: ISIS MALDONADO Rep #: [id number] : 1940 83 From: Megan Mera Attending Dr: AMRIK Jimenez Status: DEP AMB Ordering Dr: Megan Silverman Date: 09/25 Location: [facility] Sex: F C Admitted: [facility]/12 Lead EKG performed by [facility] ECG Report Interpretation ---Atrial flutter-fibrillation -RSR(V1) -nondiagnostic. - Diffuse nonspecific T-abnormality. Low voltage -possible pulmonary disease. ABNORMAL Electronically signed on 07/07/2024 at 08:17 by Neftali Nowak Software Version [id number] 07/07/24817 Date Megan ROWLEY CC: Dr. Noel Rossi MD Date Dictated: 07/06/24813 Date Transcribed: 07/06/24813 Hotel Room Attendant: JUAN DANIEL Signed Normal [facility] Cardiology Visit Reporton Cardiology Visit Report [facility] [address] [place] [address] OFFICE VISIT Date of Service: 07/06/24 MR#: [id number] Acct: [id number] Name: ISIS MALDONADO Rep #: [id number] : 1940 Provider: AMRIK Richmond Age/Sex: 83/F Location: [facility] Status: Signed HPI HPI History of Present Illness Details: Pleasant 83-year-old lady who was recently discharged from [facility] emergency room in 03/2024, after she had presented with palpitations and generalized weakness she was noted to be in atrial fibrillation with a rapid ventricular response rate she did have a [id number] score of 3 she was started on Eliquis amlodipine diltiazem lisinopril and metoprolol and hydrochlorothiazide. She also has a history of hypertension. In the emergency room she was evaluated and treated with intravenous diltiazem. She had had a previous echocardiogram in February 2024 which demonstrated an ejection fraction of 65% the left atrium was mildly enlarged the aortic valve was trileaflet with focal calcification with a peak gradient of 45 mmHg and a mean gradient of 31 mmHg. There was bileaflet mitral valve thickening and mild mitral regurgitation. During this hospitalization she underwent a CT of her chest which demonstrated no evidence of PE of dissection she was treated with more medication and subsequently discharged for outpatient follow-up. Last month at her follow-up appointment she was noted to have an elevated heart rate of 142. She had stopped her metoprolol and Eliquis as she did not have any refills on these and was not aware that she was to continue with these. These were restarted. EKG today demonstrates atrial fibrillation with a heart rate of 122. She is not aware of her rhythm. She has been taking her medications. Her heart rate at home has been better controlled but has been on the higher end. Otherwise from a cardiac standpoint she remains stable. Intake Vital Signs 06/14/24 09:28 07/06/24 08:01 07/06/24 08:06 Height 5 ft 1 in 5 ft 1 in 5 ft 1 in Weight: 138 lb 135 lb BMI 26.0 25.4 BP 123/91 H 112/81 H Blood Pressure Location Lt brachial Rt brachial Position Sitting Sitting Respiration 18 18 Pulse 142 H 122 H Pulse Source Monitor Monitor Pulse Oximetry (%) 97 96 Intake Visit Reasons: 1 M Inhalation Therapy Aides Teacher Required: No Is patient in pain?: No Allergies Anesthetics - Amide Type - Select A (anesthesia) Allergy (Severe, Verified 06/14/24 09:28) Other Medications ???Medication ???Instructions ???Recorded ???Confirmed ???Type hydrochlorothiazide 25 mg tablet 25 mg PO DAILY blood pressure 06/0507/06/24 History byztiuwdm-sxpbgpm-htlvy sium capsule 1 cap PO DAILY supplement 03/0107/06/24 History omega-3 fatty acids 1,000 mg 1,000 mg PO QDAY 03/14/24 07/06/24 History capsule lisinopril 30 mg tablet 30 mg PO QDAY blood pressure #90 03/23/24 07/06/24 Rx tabs amlodipine 5 mg tablet 5 mg PO DAILY #90 tabs 06/14/24 Rx apixaban 2.5 mg tablet (Eliquis) 2.5 mg PO BID #180 tabs 07/06/24 0 07/06/24 Rx metoprolol tartrate 100 mg tablet 100 mg PO BID #180 tabs 07/06/24 07/06/24 Rx Have you fallen in the past year?: No PFSH Medical History (Updated 06/14/24 @ 09:48 by Megan Silverman PA, PA) Atrial fibrillation with rapid ventricular response Pancreatic cyst Mixed hyperlipidemia Heart murmur Elevated hemoglobin A1c BPV (benign positional vertigo) Bilateral renal cysts Bilateral carotid artery stenosis Aortic valve stenosis Osteoporosis Stage 3a chronic kidney disease (CKD) Skin cancer HTN (hypertension) Surgical History Hx of oophorectomy Hx of appendectomy Family History Mother Heart disease CHF (congestive heart failure) Sister CAD (coronary artery disease) Hypertension Cancer Father CVA (cerebral vascular accident) Brother CAD (coronary artery disease) CVA (cerebral vascular accident) Social History Smoking Status: Never smoker alcohol intake: never substance use type: does not use ROS Const Const: Positive for fatigue Cardio Chest Pain: No Palpitations: No Edema: Bilateral (better than what is was) Endo Endo: Positive for fatigue Cardiology Exam Const Appearance: cooperative, no acute distress and well developed Orientation: alert, awake and oriented x3 Head Head: normocephalic and atraumatic Mouth: moist mucous membranes Eyes General: appearance normal, both eyes and all related structures Conjunctivae: conjunctivae normal Pupils: PERRL EOM: EOM intact bilaterally Neck Neck: normal visual inspection, no lymphadenopathy and no JVD (more content not included)... Normal [facility] 12 Lead EKG performed by [facility] on 06-14-2024 12 Lead EKG performed by [address] [place] [address] 12 Lead EKG performed by [facility] 06/14/24934 MR#: [id number] Acct: [id number] Name: ISIS MALDONADO Rep #: [id number] : 1940 83 From: Megan Mera Attending Dr: AMRIK Jimenez Status: DEP AMB Ordering Dr: Megan Silverman Date: 06/04 05/28 Location: [facility] Sex: F C Admitted: [facility]12 Lead EKG performed by [facility] ECG Report Interpretation ---Atrial fibrillation -irregular conduction -with ectopic ventricular couplets -RSR(V1) -nondiagnostic. - Nonspecific T-abnormality. Low voltage -possible pulmonary disease. ABNORMAL Electronically signed on 06/15/2024 at 09:37 by Neftali Nowak Software Version [id number] 06/15/24938 Date Meagn ROWLEY CC: Dr. Noel Rossi MD Date Dictated: 06/14/24934 Date Transcribed: 06/14/24934 Hotel Room Attendant: JUAN DANIEL Signed Normal [facility] Cardiology Visit Reporton Cardiology Visit Report [facility] [address] [place] [address] OFFICE VISIT Date of Service: 06/14/24 MR#: [id number] Acct: [id number] Name: ISIS MALDONADO Rep #: [id number] : 1940 Provider: AMRIK [place] Age/Sex: 83/F [place] [facility] Status: Signed HPI HPI History of Present Illness Details: Pleasant 83-year-old lady who was recently discharged from [facility] emergency room in 03/2024, after she had presented with palpitations and generalized weakness she was noted to be in atrial fibrillation with a rapid ventricular response rate she did have a WQV5MB8-VFWc score of 3 she was started on Eliquis amlodipine diltiazem lisinopril and metoprolol and hydrochlorothiazide. She also has a history of hypertension. In the emergency room she was evaluated and treated with intravenous diltiazem. She had had a previous echocardiogram in February 2024 which demonstrated an ejection fraction of 65% the left atrium was mildly enlarged the aortic valve was trileaflet with focal calcification with a peak gradient of 45 mmHg and a mean gradient of 31 mmHg. There was bileaflet mitral valve thickening and mild mitral regurgitation. During this hospitalization she underwent a CT of her chest which demonstrated no evidence of PE of dissection she was treated with more medication and subsequently discharged for outpatient follow-up. EKG today demonstrates atrial fibrillation with a heart rate of 142. Patient states that she has since stopped her metoprolol and Eliquis. She did not have any refills on them. She was not aware that she was supposed to retake these. She is not aware that her heart rate is so fast. She does feel that she is more fatigued with her atrial fibrillation. She does not have any worsening shortness of breath. She is not orthopneic. She does not have any chest pain. She does sometimes feel that she has racing heart rate at night. She does have lower extremity edema that does not go away in the morning. Intake Vital Signs 03/23/24 09:14 06/14/24 09:28 Height 5 ft 1 in 5 ft 1 in Weight: 142 lb 4 oz 138 lb BMI 26.9 26.0 BP 121/79 H 123/91 H Blood Pressure Location Lt brachial Lt brachial Position Sitting Sitting Respiration 16 18 Pulse 68 142 H Pulse Source Monitor Monitor Pulse Oximetry (%) 97 Intake Visit Reasons: 3 M FU Inhalation Therapy Aides Teacher Required: No Is patient in pain?: No Allergies Anesthetics - Amide Type - Select A (anesthesia) Allergy (Severe, Verified 06/14/24 09:28) Other Medications ???Medication ???Instructions ???Recorded ???Confirmed ???Type hydrochlorothiazide 25 mg tablet 25 mg PO DAILY blood pressure 06/0506/14/24 History wlxuimkff-shjyvke-mkwvt sium capsule 1 cap PO DAILY supplement 03/0106/14/24 History omega-3 fatty acids 1,000 mg 1,000 mg PO QDAY 03/14/24 06/14/24 History capsule lisinopril 30 mg tablet 30 mg PO QDAY blood pressure #90 03/23/24 06/14/24 Rx tabs amlodipine 5 mg tablet 5 mg PO DAILY #90 tabs 06/14/24 Rx apixaban 2.5 mg tablet (Eliquis) 2.5 mg PO BID #180 tabs 06/14/24 0 06/14/24 Rx metoprolol tartrate 50 mg tablet 50 mg PO BID #180 tabs 06/14/24 Rx Ejection fraction %: 65 Have you fallen in the past year?: No PFSH Medical History (Updated 06/14/24 @ 09:48 by Megan Silverman PA, PA) Atrial fibrillation with rapid ventricular response Pancreatic cyst Mixed hyperlipidemia Heart murmur Elevated hemoglobin A1c BPV (benign positional vertigo) Bilateral renal cysts Bilateral carotid artery stenosis Aortic valve stenosis Osteoporosis Stage 3a chronic kidney disease (CKD) Skin cancer HTN (hypertension) Surgical History Hx of oophorectomy Hx of appendectomy Family History Mother Heart disease CHF (congestive heart failure) Sister CAD (coronary artery disease) Hypertension Cancer Father CVA (cerebral vascular accident) Brother CAD (coronary artery disease) CVA (cerebral vascular accident) Social History Smoking Status: Never smoker alcohol intake: never substance use type: does not use ROS Const Const: Positive for fatigue (more easily); Negative for headache(s), daytime sleepiness or difficulty sleeping Eyes Eyes: Negative for loss of peripheral vision or change in vision ENT ENT: Negative for headache(s), dizziness, hearing loss, Nosebleed/epistaxis or balance problems Cardio Chest Pain: No Palpitations: Yes (at night feels like it is racing) Edema: Bilateral (doesnot go away) Muscle aches with walking: None Resp Respiratory: Negative for SOB with activity, SOB at rest, SOB orthopnea (more content not included)... Normal [facility] 04-09-2024 [facility] Telephone (FAMWS) ISIS MALDONADO ([id number]) 1940 F Date Time Provider Department 04/09/24 NOEL ROSSI [facility] During your visit today, we recorded the following information about you: Noel Rossi MD 04/09/2024 9:43 AM Signed Let patient know the US of her neck arteries show no increase in narrowing compared to 2020 and still less than 50%. Seun Xiao MA 04/09/2024 11:10 AM Signed TC to patient - mailbox full. Please try again later. Esperanza Webb 04/11/2024 8:16 AM Signed Patient contacted office and received the provider's message. She voiced understanding. Era Sherman, LALITHA 04/14/2024 9:34 AM Signed Pt called again regarding results as she states she had not heard the results yet. Pt given results again. Allergies As of Date: 04/09/2024 (No Known Allergies) Date Reviewed: 03/15/2024 Reviewed by: Noel Rossi MD - Fully Assessed Reason for Visit: Results [95] Primary Visit Diagnosis:Bilateral carotid artery stenosis [I65.23] Prescriptions as of 04/14/2024 - lisinopril (ZESTRIL) 30 mg tablet Take 1 tablet by mouth once daily. Changed to once a day per [facility] 03/23/2024 - metoprolol tartrate, short acting, (LOPRESSOR) 50 mg tablet Take 1 tablet by mouth two times a day. - apixaban (ELIQUIS) 2.5 mg tab(s) Take 1 tablet by mouth two times a day. - amLODIPine (NORVASC) 10 mg tablet Take 1 tablet by mouth once daily. - hydroCHLOROthiazide 25 mg tablet Take 1 tablet by mouth once daily. - secretin, Human, (CHIROSTIM) 16 mcg solr For MRI PANCREAS FUNCTION WO/W IVCON. Inject 0.2 mcg/kg/dose intravenously as directed. Slow push at the appropriate time during MRI - POTASSIUM-99 ORAL Take by mouth. - MAGNESIUM CHLORIDE ORAL Take by mouth. - Mljzj-7-GYD-EPA-Fish Oil 1,200 (144-216) mg cap Take 2 capsules by mouth once daily. 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] 07/14/2018 Age-related osteoporosis without current pathol*08/05/2018 Bilateral carotid artery stenosis [I65.23] 08/05/2018 Aortic valvar stenosis [I35.0] 08/05/2018 Elevated hemoglobin A1c [R73.09] 01/20/2019 Medication management [Z79.899] 01/26/2020 Anesthesia complication [T88.59XA] 2019 Stage 3a chronic kidney disease (HCC) [N18.31] 01/30/2021 Advanced care planning/counseling discussion [Z*02/19/2022 Skin cancer screening [Z12.83] 02/19/2022 Hyperlipidemia, mixed [E78.2] 02/25/2022 Chronic atrial fibrillation (HCC) [I48.20] 03/15/2024 Encounter Status:Closed by ESPERANZA WEBB on 04/11/24 Normal [facility] US CAROTID ARTERIES [facility] 04-08-2024 US CAROTID ARTERIES [facility] Non-Invasive Vascular Laboratory [facility] Carotid Duplex Bilateral/Complete Date of service/time: 04/08/2024 10:00:18 AM Name: ISSI MALDONADO Date of : 1940 Age: 83 years Gender: F Clinical Indication Follow-up study on a patient with known carotid disease. TECHNIQUE -------- A carotid duplex ultrasound examination was performed, including grayscale imaging and color Doppler and spectral Doppler examination of the below mentioned arteries. FINDINGS -------- RIGHT SIDE Common carotid artery: Origin: PSV: 53 cm/s. EDV: 12 cm/s. Proximal: PSV: 38 cm/s. EDV: 13 cm/s. Mid: PSV: 37 cm/s. EDV: 14 cm/s. Distal: PSV: 36 cm/s. EDV: 12 cm/s. Mild heterogeneous plaque at distal. Internal carotid artery: Origin: PSV: 62 cm/s. EDV: 26 cm/s. Proximal: PSV: 50 cm/s. EDV: 21 cm/s. Mid: PSV: 58 cm/s. EDV: 25 cm/s. Distal: PSV: 54 cm/s. EDV: 24 cm/s. ICA/CCA Ratio: 1.7 External carotid artery: Origin: PSV: 44 cm/s. EDV: 13 cm/s. Mild heterogeneous plaque at origin. Subclavian artery: Origin: PSV: 42 cm/s. EDV: 0 cm/s. Mild heterogeneous plaque at origin. Innominate artery: PSV: 66 cm/s. EDV: 0 cm/s. Vertebral artery: PSV: 39 cm/s. EDV: 12 cm/s. LEFT SIDE Common carotid artery: Proximal: PSV: 35 cm/s. EDV: 17 cm/s. Mid: PSV: 41 cm/s. EDV: 17 cm/s. Distal: PSV: 48 cm/s. EDV: 22 cm/s. Mild heterogeneous plaque at proximal. Internal carotid artery: Origin: PSV: 42 cm/s. EDV: 17 cm/s. Proximal: PSV: 63 cm/s. EDV: 28 cm/s. Mid: PSV: 67 cm/s. EDV: 28 cm/s. Distal: PSV: 46 cm/s. EDV: 20 cm/s. Mild heterogeneous plaque from origin to proximal. ICA/CCA Ratio: 1.3 External carotid artery: Origin: PSV: 37 cm/s. EDV: 9 cm/s. Subclavian artery: Proximal: PSV: 64 cm/s. EDV: 0 cm/s. Vertebral artery: PSV: 34 cm/s. EDV: 15 cm/s. IMPRESSION Please note: the new carotid interpretation criteria are used as recommended by [facility] [employer]. Irregular cardiac rhythm noted. When compared with the prior study, of 02/06/2021 no significant change is noted on the right side and no significant change is noted on the left side. RIGHT SIDE Common carotid artery: Plaque visualized without evidence of hemodynamically significant stenosis. Internal carotid artery: <50% stenosis consistent with mild carotid artery disease. Moderate plaque noted; however, normal velocities. Vertebral artery: Patent and antegrade flow noted. Subclavian artery: Plaque visualized without evidence of hemodynamically significant stenosis. LEFT SIDE Common carotid artery: Plaque visualized without evidence of hemodynamically significant stenosis. Internal carotid artery: <50% stenosis consistent with mild carotid artery disease. Vertebral artery: Patent and antegrade flow noted. Subclavian artery: Plaque visualized without evidence of hemodynamically significant stenosis. Technologist: Ilda Pacheco [facility]T [facility] Ordering physician: NOEL ROSSI Interpreting physician: DELFIN Henriquez DO Final CC [employer] Image : [id number] ISUID See Link below for Image Normal [facility] 12 Lead EKG performed [place] [facility] [place] 03-23-2024 12 Lead EKG performed by [facility] [address] [place] [address] 12 Lead EKG performed by [facility] 03/23/24913 MR#: [id number] Acct: [id number] Name: ISIS MALDONADO Rep #: [id number] : 1940 83 From: Neftali Nwoak MD Attending Dr: Dr. Neftali Nowak MD Status: DEP A MB Ordering Dr: Neftali Nowak MD Date: 03/23/24 Location: [facility] [place] Sex: F C Admitted: BMS/12 Lead EKG performed by [facility] ECG Report Interpretation ---Atrial fibrillation -RSR(V1) -nondiagnostic. - Nonspecific T-abnormality. Low voltage -possible pulmonary disease. ABNORMAL Electronically signed on 04/08/2024 at 16:28 by Neftali [place]akwood Software Version [id number] 04/08/24 1633 Date Neftali Nowak MD CC: Dr. Noel Rossi MD Date Dictated: 03/23/24913 Date Transcribed: 03/23/24913 Hotel Room Attendant: [place] Signed Normal [facility] Cardiology Visit Reporton Cardiology Visit Report [facility] [address] [place] [address] OFFICE VISIT Date of Service: 03/23/24 MR#: [id number] Acct: [id number] Name: ISIS MALDONADO Rep #: [id number] : 1940 Provider: Dr. Neftali Nowak MD Age/Sex: 83/F Location: [facility] [place] Status: Signed HPI HPI History of Present Illness Details: Pleasant 83-year-old lady who was recently discharged from [facility] emergency room after she had presented with palpitations and generalized weakness she was noted to be in atrial fibrillation with a rapid ventricular response rate she did have a QZV7CE0-LCCu score of 3 she was started on Eliquis amlodipine diltiazem lisinopril and metoprolol and hydrochlorothiazide. She also has a history of hypertension. In the emergency room she was evaluated and treated with intravenous diltiazem. She had had a previous echocardiogram in February of this year which demonstrated an ejection fraction of 65% the left atrium was mildly enlarged the aortic valve was trileaflet with focal calcification with a peak gradient of 45 mmHg and a mean gradient of 31 mmHg. There was bileaflet mitral valve thickening and mild mitral regurgitation. During this hospitalization she underwent a CT of her chest which demonstrated no evidence of PE of dissection she was treated with more medication and subsequently discharged for outpatient follow-up. She presents today for evaluation of the same. She does not have much by way of palpitations she does have some mild shortness of breath and fatigue her natruretic peptide was noted to be elevated at 321. Her physical exam demonstrates clear lung song irregular rate and rhythm a 2/6 systolic murmur noted at the left sternal border and no pedal edema. Her electrocardiogram demonstrated atrial fibrillation with a rate of 108 bpm and no acute changes. Intake Vital Signs 03/12/24 09:54 03/23/24 09:14 Height 5 ft 1 in 5 ft 1 in Weight: 142 lb 4 oz BMI 26.9 BP 121/79 H Blood Pressure Location Lt brachial Position Sitting Respiration 16 Pulse 68 Pulse Source Monitor Intake Visit Reasons: S/P [facility] 03/12 (AFIB W/ RVR) Inhalation Therapy Aides Teacher Required: No Accompanied by: Self Is patient in pain?: No Allergies Anesthetics - Amide Type - Select A (anesthesia) Allergy (Severe, Verified 03/23/24 09:22) Other Medications ???Medication ???Instructions ???Recorded ???Confirmed ???Type hydrochlorothiazide 25 mg tablet 25 mg PO DAILY blood pressure 06/27/18 03/23/24 History aftdxwffs-tcabogj-xaido sium capsule 1 cap PO DAILY supplement 03/01/24 03/23/24 History apixaban 5 mg tablet (Eliquis) 2.5 mg (1/2 x 5 mg) PO BID 60 days 03/04/24 03/23/24 Rx #60 tabs amlodipine 10 mg tablet 10 mg PO DAILY 03/14/24 03/23/24 History omega-3 fatty acids 1,000 mg 1,000 mg PO QDAY 03/14/24 03/23/24 History capsule lisinopril 30 mg tablet 30 mg PO QDAY blood pressure #90 03/23/24 03/23/24 Rx tabs metoprolol tartrate 50 mg tablet 50 mg PO BID 60 days #120 tabs 03/23/24 03/23/24 Rx Have you fallen in the past year?: No PFSH Medical History Pancreatic cyst Mixed hyperlipidemia Heart murmur Elevated hemoglobin A1c BPV (benign positional vertigo) Bilateral renal cysts Bilateral carotid artery stenosis Aortic valve stenosis Osteoporosis Stage 3a chronic kidney disease (CKD) Atrial fibrillation with rapid ventricular response Skin cancer HTN (hypertension) Surgical History Hx of oophorectomy Hx of appendectomy Family History Mother Heart disease CHF (congestive heart failure) Sister CAD (coronary artery disease) Hypertension Cancer Father CVA (cerebral vascular accident) Brother CAD (coronary artery disease) CVA (cerebral vascular accident) Social History Smoking Status: Never smoker alcohol intake: never substance use type: does not use ROS Const Const: Positive for fatigue and difficulty sleeping; Negative for weakness, headache(s) or daytime sleepiness ENT ENT: Negative for headache(s), dizziness or Nosebleed/epistaxis Cardio Chest Pain: No Palpitations: Yes (upon laying down ) Edema: Bilateral (BLE) Resp Respiratory: Positive for SOB at rest (when talking on phone ); Negative for SOB with activity, SOB orthopnea SOB lying down or Cough GI GI: Negative nausea, vomiting or heartburn Neuro Neuro: Negative for dizziness, lightheadedness, near syncope, headache(s) or weakness Endo Endo: Positive for fatigue Cardiology Exam Const Appearance: cooperative, healthy appearing, no acute distress, well developed and well groomed Nutritional Appearance (more content not included)... Normal [facility] ISIS [facility] ([id number]) 1940 F Date Time Provider Department 03/22/24 NOEL ROSSI [facility] During your visit today, we recorded the following information about you: Adelita Wilson LPN 03/22/2024 11:38 AM Signed Pt calling with blood pressure and heart rate 03-22-24 AM 102/74 HR 64 Should she take the Metoprolol 50 mg tablets. Please advise pt. DONIS Goldman Jeffrey A, MD 03/22/2024 1:04 PM Signed Advise patient to stay on the 37.5 mg tabs for now. If her pulse goes up and her blood pressure is not below 105/60 advise her to take just a 1/2 of the 50 mg pill to see if this brings the pulse back down. Adelita Wilson LPN 03/22/2024 2:48 PM Signed Spoke with pt and information listed below given. Pt verbalizes understanding. Adelita Wilson LPN Allergies As of Date: 03/22/2024 (No Known Allergies) Date Reviewed: 03/15/2024 Reviewed by: Noel Rossi MD - Fully Assessed Reason for Visit: blood pressure update/?take medication [Other] Order(s):metoprolol tartrate 37.5 mg tabTake 1 tablet by mouth two times a day.Disp: Rfl: Prescriptions as of 03/22/2024 - metoprolol tartrate 37.5 mg tab Take 1 tablet by mouth two times a day. - metoprolol tartrate, short acting, (LOPRESSOR) 50 mg tablet Take 1 tablet by mouth two times a day. - apixaban (ELIQUIS) 2.5 mg tab(s) Take 1 tablet by mouth two times a day. - dilTIAZem ER (CARDIZEM SR) 120 mg 12 hr capsule Take 1 capsule by mouth two times a day. - amLODIPine (NORVASC) 10 mg tablet Take 1 tablet by mouth once daily. - hydroCHLOROthiazide 25 mg tablet Take 1 tablet by mouth once daily. - lisinopril (ZESTRIL) 30 mg tablet Take 1 tablet by mouth two times a day. - secretin, Human, (CHIROSTIM) 16 mcg solr For MRI PANCREAS FUNCTION WO/W IVCON. Inject 0.2 mcg/kg/dose intravenously as directed. Slow push at the appropriate time during MRI - POTASSIUM-99 ORAL Take by mouth. - MAGNESIUM CHLORIDE ORAL Take by mouth. - Xciut-2-MYK-EPA-Fish Oil 1,200 (144-216) mg cap Take 2 capsules by mouth once daily. 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] 07/14/2018 Age-related osteoporosis without current pathol*08/05/2018 Bilateral carotid artery stenosis [I65.23] 08/05/2018 Aortic valvar stenosis [I35.0] 08/05/2018 Elevated hemoglobin A1c [R73.09] 01/20/2019 Medication management [Z79.899] 01/26/2020 Anesthesia complication [T88.59XA] 2019 Stage 3a chronic kidney disease (HCC) [N18.31] 01/30/2021 Advanced care planning/counseling discussion [Z*02/19/2022 Skin cancer screening [Z12.83] 02/19/2022 Hyperlipidemia, mixed [E78.2] 02/25/2022 Chronic atrial fibrillation (HCC) [I48.20] 03/15/2024 Prescriptions ordered this encounter Disp Refills Start End METOPROLOL TARTRATE 37.5 MG TABLET 03/22/2024 Class: Med Update Route: ORAL Sig: Take 1 tablet by mouth two times a day. Encounter Status:[facility] ISIS MALDONADO ([id number]) 1940 F Date Time Provider Department 03/21/24 NOEL ROSSI [facility] During your visit today, we recorded the following information about you: Bebe Mahan RN 03/21/2024 8:27 AM Signed Patient calls with update since appointment on 03/15/2024. Patient reports that she is still not sleeping. She says she is not certain why. Denies CP. Reports that she continues to have palpitations when she lies down. Patient reports that she doesn't keep track of her heart rate at home. Patient taking the increased metoprolol 37.5 mg twice daily at 8 am and 8 pm along with all other medications prescribed. Patient scheduled to see [facility] on 03/23/2024 and asking for further recommendations until then. Asked patient if she was wanting a recommendation for something for sleep since the recommendation is to follow up with cardiology for chronic atrial fib. Patient reports that she is not sure what she is wanting as she doesn't like to take medications to make her sleep. Patient hasn't tried any OTC sleep aides. Patient requested message be sent to provider to see if he has any further recommendations. LALITHA Briscoe Jeffrey A, MD 03/21/2024 9:11 AM Signed I wouldn't be against increasing the dose of metoprolol, however I need to know what her pulse rate and BP has been since I increased her to 37.5 mg twice a day. Bebe Mahan RN 03/21/2024 9:26 AM Signed Call placed to patient. Current BP is 117/87 and HR 131 (she reports at this time she isn't feeling palpitations). Patient took metoprolol this morning after speaking with me earlier (around 830 am). LALITHA Briscoe Jeffrey A, MD 03/21/2024 10:08 AM Signed Let patient know I will send in a script to increase the metoprolol to 50 mg twice a day. The following approved medication requests have been transmitted electronically. Requested Prescriptions Signed Prescriptions Disp Refills metoprolol tartrate, short acting, (LOPRESSOR) 50 mg tablet 60 tablet 1 Sig: Take 1 tablet by mouth two times a day. Authorizing Provider: NOEL ROSSI MD Warner, Rilee, MA 03/21/2024 10:33 AM Signed Pt called and notified of Providers message below. Made patient aware to continue checking BP and HR. Update office if having any issues. Bianka Redd MA Allergies As of Date: 03/21/2024 (No Known Allergies) Date Reviewed: 03/15/2024 Reviewed by: Noel Rossi MD - Fully Assessed Reason for Visit: Patient Update [1234] Order(s):metoprolol tartrate, short acting, (LOPRESSOR) 50 mg tabletTake 1 tablet by mouth two times a day.Disp: 60 tabletRfl: 1 Prescriptions as of 03/21/2024 - metoprolol tartrate, short acting, (LOPRESSOR) 50 mg tablet Take 1 tablet by mouth two times a day. - apixaban (ELIQUIS) 2.5 mg tab(s) Take 1 tablet by mouth two times a day. - dilTIAZem ER (CARDIZEM SR) 120 mg 12 hr capsule Take 1 capsule by mouth two times a day. - amLODIPine (NORVASC) 10 mg tablet Take 1 tablet by mouth once daily. - hydroCHLOROthiazide 25 mg tablet Take 1 tablet by mouth once daily. - lisinopril (ZESTRIL) 30 mg tablet Take 1 tablet by mouth two times a day. - secretin, Human, (CHIROSTIM) 16 mcg solr For MRI PANCREAS FUNCTION WO/W IVCON. Inject 0.2 mcg/kg/dose intravenously as directed. Slow push at the appropriate time during MRI - POTASSIUM-99 ORAL Take by mouth. - MAGNESIUM CHLORIDE ORAL Take by mouth. - Nzuep-3-DHC-EPA-Fish Oil 1,200 (144-216) mg cap Take 2 capsules by mouth once daily. 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] 07/14/2018 Age-related osteoporosis without current pathol*08/05/2018 Bilateral carotid artery stenosis [I65.23] 08/05/2018 Aortic valvar stenosis [I35.0] 08/05/2018 Elevated hemoglobin A1c [R73.09] 01/20/2019 Medication management [Z79.899] 01/26/2020 Anesthesia complication [T88.59XA] 2018 Stage 3a chronic kidney disease (HCC) [N18.31] 01/30/2021 Advanced care planning/counseling discussion [Z*02/19/2022 Skin cancer screening [Z12.83] 02/19/2022 Hyperlipidemia, mixed [E78.2] 02/25/2022 Chronic atrial fibrillation (HCC) [I48.20] 03/15/2024 Prescriptions ordered this encounter Disp Refills Start End METOPROLOL TARTRATE 50 MG TABLET 60 t* 1 03/21/2024 Route: ORAL Sig: Take 1 tablet by mouth two times a day. Medications Discontinued During This Encounter Prescriptions - metoprolol tartrate 37.5 mg tab (Discontinued) Take 1 tablet by mouth two times a day. Encounter N (more content not included)... Normal [facility] 03-15-2024 [facility] Office Visit (FAMPWS ) ISIS MALDONADO ([id number]) 1940 F Date Time Provider Department 03/15/24 11:20 AM NOEL ROSSI During your visit today, we recorded the following information about you: Pulse Respiration Blood pressure Weight 94/minute 16/minute 142/78 63 kg Noel Rossi MD 03/15/2024 12:00 PM Signed Chief Complaint Patient presents with: Hospital F/U HPI Isis Mera Amy is a 83 year old female who presents here today for Hospital Discharge Follow up.. Patient was sent to [facility] on 03/01/2024 from PCP with A-fib. Patient was started on Diltiazem 120 mg twice daily. Metoprolol 25 mg twice a day Eliquis 5 mg twice daily Patient was seen again the [facility] on 03/12/2024 for palpitations and heaviness in her legs. Patient was told to schedule with cardiology; patient has appointment with [facility]. Patient was instructed to D/C amlodipine. Patient indicated today that she has been feeling fatigue and some tightness/weakness in her legs. Per patient when she was discharged from [facility] on 03/04/2024 she was sent home on diltiazem ER 12 hr 120 twice a day, metoprolol tartrate 25 mg twice a day and Eliquis 2.5 mg twice a day. She was to continue the Norvasc 10 mg a day and lisinopril 30 mg twice a day When she returned to the ER on 03/12/2024 she was instructed to stop the amlodipine. Patient denies any shortness of breath, chest pain or increased leg edema from base line. What she is having is palpitations at night that make it difficult to sleep at times. Rate has been upper nineties to about 120 based omn patient's documentation. Past medical history, appointments, medications, allergies reviewed. Previous Medical History PAST MEDICAL HISTORY Diagnosis Date Age-related osteoporosis without current pathological fracture 08/05/2018 Spine and R hip August 2018 Anesthesia complication 2018 She had issues with slow awakening after her colonoscopy 2 years ago where they used midazolam, fentanyl and Benadryl at the time. Aortic valvar stenosis 08/05/2018 Echo 08/02/18 Mild aortic valve stenosis and regurgitation. Bilateral carotid artery stenosis 08/05/2018 US 08/05/18 bilateral 20-39% Bilateral renal cysts 07/14/2018 MRI: 07/02/2017: benign BPV (benign positional vertigo) 07/14/2018 Delayed emergence from general anesthesia Elevated hemoglobin A1c 01/20/2019 Essential hypertension 07/14/2018 Heart murmur 07/14/2018 Known since she was 16 yo. Hyperlipidemia, mixed 02/25/2022 Pancreatic cyst 07/14/2018 Seen on MRI 07/02/2018, Pancreatic tail: 12 mm and 4 mm. Recommendation to repeat MRI in a year. Skin cancer screening 02/19/[address] Castañeda- Dermatology routinely for skin checks. Stage 3a chronic kidney disease (HCC) 01/30/2021 Previous Surgical History PAST SURGICAL HISTORY Procedure Laterality Date APPENDECTOMY 1952 COLONOSCOPY FLX DX W/COLLJ SPEC WHEN PFRMD 08/26/2018 Colonoscopy OOPHORECTOMY PARTIAL OR TOTAL 1966 one ovary removed due to a cyst. benign Family History FAMILY HISTORY Problem Relation Age of Onset Heart Mother congestive heart failure Stroke Father Cancer Sister on the neck, maybe lymphoma Coronary Artery Disease Sister 75 Hypertension Sister Prostate Cancer Brother 77 Coronary Artery Disease Brother 67 Stroke Brother Coronary Artery Disease Sister 70 Cancer Sister lymphoma Hypertension Sister Alzheimer's Disease No Family History Colon Cancer No Family History Breast Cancer No Family History Ovarian cancer No Family History Uterine Cancer No Family History Diabetes No Family History Hyperlipidemia No Family History Kidney Disease No Family History Seizures No Family History Thyroid No Family History Patient Allergies ALLERGIES No Known Allergies Current Medications Current Outpatient Medications on File Prior to Visit Medication Sig apixaban (ELIQUIS) 2.5 mg tab(s) Take 1 tablet by mouth two times a day. metoprolol tartrate, short acting, (LOPRESSOR) 25 mg tablet Take 1 tablet by mouth two times a day. dilTIAZem ER (CARDIZEM SR) 120 mg 12 hr capsule Take 1 capsule by mouth two times a day. amLODIPine (NORVASC) 10 mg tablet Take 1 tablet by mouth once daily. hydroCHLOROthiazide 25 mg tablet Take 1 tablet by mouth once daily. lisinopril (ZESTRIL) 30 mg tablet Take 1 tablet by mouth two times a day. secretin, Human, (CHIROSTIM) 16 mcg solr For MRI PANCREAS FUNCTION WO/W IVCON. Inject 0.2 mcg/kg/dose intravenously as directed. Slow push at the appropriate time during MRI POTASSIUM-99 ORAL Take by mouth. MAGNESIUM CHLORIDE ORAL Take by mouth. Wkbpj-8-FQS-EPA-Fish Oil 1,200 (144-216) mg cap Take 2 capsules by mouth once daily. No current facility-administered medications on file prior to visit. Social History Social History Tobacco Use Smoking status: Never Smokeless t (more content not included)... Normal [facility] ECG COMPLETEon 03-01-2024 Atrial Rate 159 BPM [facility] Calculated R [place] -35 degrees [facility] Calculated T [place] -32 degrees [facility] QRS Duration 86 ms [facility] QT Interval 258 ms [facility] QTC Calculation (Bazett) 418 ms [facility] Ventricular Rate 158 BPM [facility] ATRIAL FIBRILLATION WITH RAPID VENTRICULAR RESPONSE LEFT AXIS DEVIATION LOW VOLTAGE QRS, CONSIDER PULMONARY DISEASE, PERICARDIAL EFFUSION, OR NORMAL VARIANT CANNOT EXCLUDE ANTERIOR MYOCARDIAL INFARCTION , AGE UNDETERMINED ABNORMAL ECG Confirmed by DOE TO DO ([id number]) on 03/01/2024 3:12:58 PM [facility] NAME : ISIS MALDONADO PID : [id number] : 1940 Gender : Female Race : ORD : Procedure Date : Mar 01 2024 10:32:38 Edit Date : Mar 01 2024 15:13:03 Diagnosis: ATRIAL FIBRILLATION WITH RAPID VENTRICULAR RESPONSE LEFT AXIS DEVIATION LOW VOLTAGE QRS, CONSIDER PULMONARY DISEASE, PERICARDIAL EFFUSION, OR NORMAL VARIANT CANNOT EXCLUDE ANTERIOR MYOCARDIAL INFARCTION , AGE UNDETERMINED ABNORMAL ECG Confirmed by DOE TO DO ([id number]) on 03/01/2024 3:12:58 PM Test Reason : Location : [facility] : [facility] Overread By : DOE TO DO Edited By : DEO TO DO Referred By : NOEL ROSSI MD Acquired by : RINKU MG, [facility] Abram 08-14-2023 [place] Telephone (AGGASTACC ) ISIS MALDONADO ([id number]) 1940 F Date Time Provider Department 08/14/23 KIMMIE HEATH AGGASTACC During your visit today, we recorded the following information about you: April Soler RN 08/14/2023 8:37 AM Signed Patient calling PCP office to state she received a letter from [facility] stating she needs to make an appointment with Dr. Shanice Aly. Patient does not know why she received this letter. No note observed in pt's record about this. Informed patient that a message would be sent to Gastroenterology for further clarification. Please call patient with reply. Thank you. LALITHA Collazo Jennifer A, PA-C 08/14/2023 2:00 PM Signed Please let the patient know that she is due for a colonoscopy, which is why she received the letter from Dr Aly's office. She can contact them and have it there, or we could get her scheduled in [place] if she prefers. April Soler RN 08/14/2023 3:25 PM Signed Attempted to contact patient and no answer. VM box is full. Try contacting pt again. [phone] Thank you. April Soler RN 08/17/2023 4:41 PM Signed 2nd attempt to contact patient and no answer. VM box is full. LALITHA Collazo Debora L 08/18/2023 3:40 PM Signed Per prev notes- called pt explan that Dr. Aly has tried to contact her several times to scheduled appt or I can get her scheduled in [place]. Pt states will call Dr. Pandey office today [place] S[place] Allergies As of Date: 08/14/2023 (No Known Allergies) Date Reviewed: 02/25/2023 Reviewed by: Noel Rossi MD - Fully Assessed Reason for Visit: Patient Question [1477] Prescriptions as of 08/18/2023 - lisinopril (ZESTRIL) 30 mg tablet Take 1 tablet by mouth two times a day. - amLODIPine (NORVASC) 10 mg tablet Take 1 tablet by mouth once daily. - hydroCHLOROthiazide 25 mg tablet Take 1 tablet by mouth once daily. - secretin, Human, (CHIROSTIM) 16 mcg solr For MRI PANCREAS FUNCTION WO/W IVCON. Inject 0.2 mcg/kg/dose intravenously as directed. Slow push at the appropriate time during MRI - POTASSIUM-99 ORAL Take by mouth. - MAGNESIUM CHLORIDE ORAL Take by mouth. - Xcwhp-7-MRP-EPA-Fish Oil 1,200 (144-216) mg cap Take 2 capsules by mouth once daily. 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] 07/14/2018 Age-related osteoporosis without current pathol*08/05/2018 Bilateral carotid artery stenosis [I65.23] 08/05/2018 Aortic valvar stenosis [I35.0] 08/05/2018 Elevated hemoglobin A1c [R73.09] 01/20/2019 Medication management [Z79.899] 01/26/2020 Anesthesia complication [T88.59XA] 2019 Stage 3a chronic kidney disease (HCC) [N18.31] 01/30/2021 Advanced care planning/counseling discussion [Z*02/19/2022 Skin cancer screening [Z12.83] 02/19/2022 Hyperlipidemia, mixed [E78.2] 02/25/2022 Encounter Status:Closed by YOUNG SORIA on 08/18/23 [facility] Abram 08-03-2023 [place] Telephone (AGGASTACC ) ISIS MALDONADO ([id number]) 1940 F Date Time Provider Department 08/03/23 KIMMIE HEATH During your visit today, we recorded the following information about you: Kimmie Heath PA-C 08/03/2023 11:06 AM Signed This patient needs scheduled for an MRCP to check on her pancreatic cyst Young Soria 08/05/2023 2:15 PM Signed Called pt scheduled MRI for 09/22/2023 at 11:30 in [place] Young Soria Allergies As of Date: 08/03/2023 (No Known Allergies) Date Reviewed: 02/25/2023 Reviewed by: Noel Rossi MD - Fully Assessed Reason for Visit: Follow Up [171] 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 No IV access, insert saline lock prior to the beginning of sedation, infusion, injection of imaging exam. Discontinue saline lock post exam. If Pt. has a central line or IVAD, may access for administration according to line specific nursing protocol. Once exam is complete flush line and de-access according to line specific nursing protocol in the MR contrast administration guidelines link.Disp: 1 EachRfl: 0 Prescriptions as of 08/05/2023 - meclizine (ANTIVERT) 25 mg tab Take 1 tablet by mouth three times a day. - lisinopril (ZESTRIL) 30 mg tablet Take 1 tablet by mouth two times a day. - amLODIPine (NORVASC) 10 mg tablet Take 1 tablet by mouth once daily. - hydroCHLOROthiazide 25 mg tablet Take 1 tablet by mouth once daily. - secretin, Human, (CHIROSTIM) 16 mcg solr For MRI PANCREAS FUNCTION WO/W IVCON. Inject 0.2 mcg/kg/dose intravenously as directed. Slow push at the appropriate time during MRI - POTASSIUM-99 ORAL Take by mouth. - MAGNESIUM CHLORIDE ORAL Take by mouth. - Kthor-4-SKP-EPA-Fish Oil 1,200 (144-216) mg cap Take 2 capsules by mouth once daily. 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] 07/14/2018 Age-related osteoporosis without current pathol*08/05/2018 Bilateral carotid artery stenosis [I65.23] 08/05/2018 Aortic valvar stenosis [I35.0] 08/05/2018 Elevated hemoglobin A1c [R73.09] 01/20/2019 Medication management [Z79.899] 01/26/2020 Anesthesia complication [T88.59XA] 2018 Stage 3a chronic kidney disease (HCC) [N18.31] 01/30/2021 Advanced care planning/counseling discussion [Z*02/19/2022 Skin cancer screening [Z12.83] 02/19/2022 Hyperlipidemia, mixed [E78.2] 02/25/2022 Prescriptions ordered this encounter Disp Refills Start End IV CONTRAST (RADIOLOGY PROCEDURE) 1 Ea* 0 08/03/2023 08/04/2023 Class: In Office Sig: MRI PANC/JOSE M Inject, intravenously, once for 1 dose. No IV access, insert saline lock prior to the beginning of sedation, infusion, injection of imaging exam. Discontinue saline lock post exam. If Pt. has a central line or IVAD, may access for administration according to line specific nursing protocol. Once exam is complete flush line and de-access according to line specific nursing protocol in the MR contrast administration guidelines link. Encounter Status:Closed by YOUNG SORIA on 08/05/23 Normal [facility] H pylori Ag Stl Ql IAon - H. pylori Ag IA Ql (Stl) H.PYLORI EIA RESULT: Negative for Helicobacter pylori antigen by EIA Normal [facility] Comment on above: Performed By: #### 1 [id number] #### [facility] CLIA [id number] [place] CNOVon 12-12-2022 CNOV Office Visit (AGGASTACC) ISIS MALDONADO ([id number]) 1940 F Date Time Provider Department 12/12/22 8:15 AM NOEL HOLLIDAY AGGASTACC During your visit today, we recorded the following information about you: Pulse Blood pressure Weight Height 92/minute 149/77 65.3 kg 1.549 m Noel Holliday MD 12/12/2022 9:12 AM Signed HPI: Isis Maldonado is a 82 year old female who presents for follow up of Follow Up. Pt is here for a f/up as she has seen Dr. Dunham in the past. I reviewed his last note. Pt denies complaints, no pain, wt loss, n/v. She never did have HP stool test. Her last MR in September which shows stability and no concerning features of panc cysts, largest of 1.2 cm. Current Outpatient Medications Medication Sig lisinopril (ZESTRIL,PRINIVIL) 30 mg tablet Take 1 tablet by mouth twice daily. amLODIPine (NORVASC) 10 mg tablet Take 1 tablet by mouth once daily. hydroCHLOROthiazide (HYDRODIURIL, ESIDRIX) 25 mg tablet Take 1 tablet by mouth once daily. secretin, Human, (Concorde SolutionsSTIM) 16 mcg solr For MRI PANCREAS FUNCTION WO/W IVCON. Inject 0.2 mcg/kg/dose intravenously as directed. Slow push at the appropriate time during MRI POTASSIUM-99 ORAL Take by mouth. MAGNESIUM CHLORIDE ORAL Take by mouth. Ajmpr-8-GYY-EPA-Fish Oil 1,200 (144-216) mg cap Take 2 capsules by mouth once daily. aspirin, enteric coated (ASPIRIN, ENTERIC COATED) 81 mg EC tablet Take 1 tablet by mouth once daily. (Patient not taking: Reported on 12/12/2022) No current facility-administered medications for this visit. ALLERGIES No Known Allergies REVIEW OF SYSTEMS: GENERAL: No weight loss, malaise or fevers. HEENT: Negative for frequent or significant headaches, No changes in hearing or vision, no nose bleeds or other nasal problems. NECK: Negative for lumps, goiter, pain and significant neck swelling. RESPIRATORY: Negative for cough, hemoptysis, wheezing or shortness of breath CARDIOVASCULAR: Negative for chest pain, leg swelling or palpitations GI: See HPI : No history of dysuria, frequency or incontinence MUSCULOSKELETAL: Negative for joint pain or swelling, back pain or muscle pain. SKIN: Negative for lesions, rash, and itching PSYCH: Negative for sleep disturbance, mood disorder and recent psychosocial stressors NEURO: No history of headaches, syncope, paralysis, seizures or tremors PHYSICAL EXAMINATION: BP 149/77 Pulse 92 Ht 5' 1 (1.55m) Wt 144 lb (65.3kg) BMI 27.22 kg/(m2). GENERAL APPEARANCE: Well appearing, alert, in no acute distress, well-hydrated, well nourished. EYES: No icterus ABDOMEN: Normal, soft, non-tender, no masses or organomegaly. ASSESSMENT AND PLAN: ASSESSMENT/PLAN: 1. Pancreatic cyst - ICD9: 577.2, ICD10: K86.2 (primary diagnosis) - pt not sure she wants another MRI in future. Cysts have been stable since 2019. - can f/up in 1 yr. 2. H. pylori infection - ICD9: 041.86, ICD10: A04.8 - H PYLORI AG BY EIA,STOOL Noel Holliday MD Allergies As of Date: 12/12/2022 (No Known Allergies) Date Reviewed: 12/12/2022 Reviewed by: Noel Holliday MD - Fully Assessed Reason for Visit: Follow Up [171] Primary Visit Diagnosis:Pancreatic cyst [K86.2] Other Visit Diagnosis:H. pylori infection [A04.8] Order(s):H PYLORI AG BY EIA,STOOL [SQHPYLAG] Order #: [id number]. #:[id number] Prescriptions as of 12/12/2022 - lisinopril (ZESTRIL,PRINIVIL) 30 mg tablet Take 1 tablet by mouth twice daily. - amLODIPine (NORVASC) 10 mg tablet Take 1 tablet by mouth once daily. - hydroCHLOROthiazide (HYDRODIURIL, ESIDRIX) 25 mg tablet Take 1 tablet by mouth once daily. - secretin, Human, (CHIROSTIM) 16 mcg solr For MRI PANCREAS FUNCTION WO/W IVCON. Inject 0.2 mcg/kg/dose intravenously as directed. Slow push at the appropriate time during MRI - POTASSIUM-99 ORAL Take by mouth. - MAGNESIUM CHLORIDE ORAL Take by mouth. - aspirin, enteric coated (ASPIRIN, ENTERIC COATED) 81 mg EC tablet Take 1 tablet by mouth once daily. - Xgahb-0-CXS-EPA-Fish Oil 1,200 (144-216) mg cap Take 2 capsules by mouth once daily. 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 Normal [facility] MRI PANC/JOSE M WO/W IVCONon MRI PANC/JOSE M WO/W IVCON * * *Final Report* * * DATE OF EXAM: Sep 16 2022 10:30AM [place] 0730 - MRI PANC/JOSE M WO/W IVCON / PROCEDURE REASON: multiple diagnoses * * * * Physician Interpretation * * * * TITLE: MRI PANCREAS/BILIARY WITH IV CONTRAST DATE: September 19, 2022 INDICATION: Pancreatic cyst COMPARISON: MRI pancreas/biliary November 25, 2021 and February 14, 2020 TECHNIQUE: A series of T1, T2 and diffusion-weighted sequences through the abdomen were performed both prior to and after the administration of 13 ml of Dotarem IV contrast. 3-D reconstructions of the biliary tree were performed. FINDINGS: Limitations: None Liver: No hepatic mass. Gallbladder and biliary tree: Gallbladder is unremarkable. No biliary dilatation. Adrenal glands: No adrenal mass. Spleen: No splenomegaly or splenic mass. There is a 6 mm cyst in the spleen. Pancreas: Multiple cystic lesions in the pancreas as listed: -Cystic change in the tail the pancreas the largest individual cyst measuring 1.2 cm (5:31) stable in size with prior MRI. This appears to communicate with the main pancreatic duct consistent with a side branch intraductal papillary mucinous neoplasm. -Circumscribed 1.4 cm unilocular cystic lesion in the body the pancreas (5:35) stable in size. There are a few subcentimeter cystic lesions in the head of the pancreas unchanged. -No suspicious areas of mural nodularity or enhancement are noted within any of the cystic lesions. -Atrophy of the tail the pancreas. Kidneys: No renal mass or hydronephrosis. 2.2 cm cyst in the mid left kidney. Bilateral parapelvic cysts. Aorta and vasculature: Abdominal aorta is normal caliber. Celiac trunk and superior mesenteric arteries are widely patent. Splenic, superior mesenteric and portal veins are patent. The hepatic veins are patent. Lymph nodes: No enlarged abdominal lymph nodes. GI:Included loops of bowel are unremarkable. Mesentery and peritoneum:No ascites. No peritoneal mass. Other findings: Osseous structures are unremarkable. Lower thorax: Lung bases are unremarkable. IMPRESSION: Stable cystic lesions in the pancreas largest measuring 1.4 cm. 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 A follow-up MRI in one year is recommended to assess for continued stability. ACTIONABLE RESULT: FOLLOW-UP Acuity: Actionable Findings: Pancreas/Biliary Routing Code: PB_1 Recommendation: MRI PANCREAS/BILIARY WO/W IV CONTRAST Time Frame: In one year. COMMUNICATION: Results will be communicated with the ordering provider via [employer] staff message or phone message by [facility] within 2 business days of report finalization. Algorithms for management of incidental imaging findings can be found on the [facility] Intranet Sharepoint site at: [email or web address] [email or web address]%2 0Findi ngs%20at%20Imaging/Form s/AllItems.aspx Hotel Room Attendant: RENUKA Transcribe Date/Time: Sep 19 2022 2:28P Dictated by : EULALIO MCCABE MD This examination was interpreted and the report reviewed and electronically signed by: EULALIO MCCABE MD on Sep 19 2022 2:51PM EST [id number] ACTIONABLE Invalid Interpretation Code [facility] Vital Signs Date Time Vital Sign Value Performing Clinician Tracei jeana 02-07-2025 13:50-0400 Body mass index (BMI) [Ratio] 25.3 kg/m2 Dr. Noel Rossi MD Work Phone: [phone] [place] [address] 02-07-2025 13:50-0400 Body weight 60.[address] Noel Rossi MD Work Phone: 7([phone])170-902625 [place] [address] 12-13-2024 15:40-0400 Body height 154.[address] Noel Rossi MD Work Phone: 0([phone])881-318525 [place] [address] 12-13-2024 15:40-0400 Body mass index (BMI) [Ratio] 24.9 kg/m2 Dr. Noel Rossi MD Work Phone: 4([phone])681-858625 [place] [address] 12-13-2024 15:40-0400 Body weight 59.[address] Noel Rossi MD Work Phone: 7(970)337-494825 [place] [address] 12-13-2024 15:40-0400 Diastolic blood pressure 88 mm[Hg] Dr. Noel Rossi MD Work Phone: 3(286)493-419325 [place] [address] 12-13-2024 15:40-0400 Heart rate 50 /min Dr. Noel Rossi MD Work Phone: 8([phone])190-331625 [place] [address] 12-13-2024 15:40-0400 Respiratory rate 16 /min Dr. Noel Rossi MD Work Phone: 3([phone])685-450825 [place] [address] 12-13-2024 15:40-0400 Systolic blood pressure 160 mm[Hg] Dr. Noel Rossi MD Work Phone: 9(881)860-128225 [place] [address] 10-18-2024 09:35-0400 Body height 154.[address] Noel Rossi MD Work Phone: 3([phone])679-450725 [place] [address] 10-18-2024 09:25-0400 Body weight 58.[address] Noel Rossi MD Work Phone: 3(643)274-007325 [place] [address] 10-18-2024 09:25-0400 Diastolic blood pressure 69 mm[Hg] Dr. Noel Rossi MD Work Phone: 6([phone])483-875125 [place] [address] 10-18-2024 09:25-0400 Heart rate 41 /min Dr. Noel Rossi MD Work Phone: 1(091)378-290225 [place] [address] 10-18-2024 09:25-0400 Respiratory rate 18 /min Dr. Noel Rossi MD Work Phone: 3([phone])[phone] [place] [address] 10-18-2024 09:25-0400 Systolic blood pressure 170 mm[Hg] Dr. Noel Rossi MD Work Phone: 2([phone])198-697525 [place] [address] 07-21-2024 07:47-0400 Body mass index (BMI) [Ratio] 6.6 kg/m2 Dr. Noel Rossi MD Work Phone: 4(954)326-036625 [place] [address] 07-21-2024 07:47-0400 Body weight 15.[address] Noel Rossi MD Work Phone: 6([phone])887-392325 [place] [address] 07-21-2024 07:47-0400 Diastolic blood pressure 84 mm[Hg] Dr. Noel Rossi MD Work Phone: 1(168)014-731325 [place] [address] 07-21-2024 07:47-0400 Heart rate 123 /min Dr. Noel Rossi MD Work Phone: 0(271)281-790325 [place] [address] 07-21-2024 07:47-0400 Respiratory rate 20 /min Dr. Noel Rossi MD Work Phone: 7([phone])887-825025 [place] [address] 07-21-2024 07:47-0400 Systolic blood pressure 129 mm[Hg] Dr. Noel Rossi MD Work Phone: [phone] [place] [address] 07-06-2024 08:01-0500 Body mass index (BMI) [Ratio] 25.4 kg/m2 Dr. Noel Rossi MD Work Phone: [phone])009-168925 [place] [address] 07-06-2024 08:01-0500 Body weight [address] Noel Rossi MD Work Phone: [phone] [place] [address] 07-06-2024 08:01-0500 Diastolic blood pressure 81 mm[Hg] Dr. Noel Rossi MD Work Phone: 6(787)969-900325 [place] [address] 07-06-2024 08:01-0500 Heart rate 122 /min Dr. Noel Rossi MD Work Phone: 0(254)451-211025 [place] [address] 07-06-2024 08:01-0500 Respiratory rate 18 /min Dr. Noel Rossi MD Work Phone: 4(166)150-880525 [place] [address] 07-06-2024 08:01-0500 SaO2% (BldA) [Mass fraction] 96 % Dr. Noel Rossi MD Work Phone: 0(386)728-453325 [place] [address] 07-06-2024 08:01-0500 Systolic blood pressure 112 mm[Hg] Dr. Noel Rossi MD Work Phone: 2([phone])862-150825 [place] [address] 03-15-2024 11:09-0500 Body mass index (BMI) [Ratio] 26.7 kg/m2 Noel Rossi MD Work Phone: [facility] 03-15-2024 11:09-0500 Body weight 63.05 kg Noel Rossi MD Work Phone: [facility] 03-15-2024 11:09-0500 Diastolic blood pressure 78 mm[Hg] Noel Rossi MD Work Phone: [facility] 03-15-2024 11:09-0500 Heart rate 94 /min Noel Rossi MD Work Phone: [facility] 03-15-2024 11:09-0500 Respiratory rate 16 /min Noel Rossi MD Work Phone: [facility] 03-15-2024 11:09-0500 Systolic blood pressure 142 mm[Hg] Noel Rossi MD Work Phone: [facility] 03-01-2024 09:39-0400 Body height 153.7 cm Noel Rossi MD Work Phone: [facility] 03-01-2024 09:39-0400 Body mass index (BMI) [Ratio] 26.7 kg/m2 Noel Rossi MD Work Phone: [facility] 03-01-2024 09:39-0400 Body weight 63.05 kg Noel Rossi MD Work Phone: [facility] 03-01-2024 09:39-0400 Diastolic blood pressure 82 mm[Hg] Noel Rossi MD Work Phone: [facility] 03-01-2024 09:39-0400 Heart rate 96 /min Noel Rossi MD Work Phone: [facility] 03-01-2024 09:39-0400 Respiratory rate 16 /min Noel Rossi MD Work Phone: [facility] 03-01-2024 09:39-0400 Systolic blood pressure 132 mm[Hg] Noel Rossi MD Work Phone: [facility] 02-25-2023 10:08-0400 Diastolic blood pressure 64 mm[Hg] Noel Rossi MD Work Phone: [facility] 02-25-2023 10:08-0400 Systolic blood pressure 126 mm[Hg] Noel Rossi MD Work Phone: [facility] 02-25-2023 09:38-0400 Body height 154.3 cm Noel Rossi MD Work Phone: [facility] 02-25-2023 09:38-0400 Body weight 63.96 kg Noel Rossi MD Work Phone: [facility] 02-25-2023 09:38-0400 Heart rate 90 /min Noel Rossi MD Work Phone: [facility] 02-25-2023 09:38-0400 Respiratory rate 16 /min Noel Rossi MD Work Phone: [facility] 02-19-2022 12:20-0400 Diastolic blood pressure 70 mm[Hg] Maxine Allen PA-C Work Phone: [facility] 02-19-2022 12:20-0400 Systolic blood pressure 118 mm[Hg] Maxine Allen PA-C Work Phone: [facility] 02-19-2022 11:52-0400 Body height 156 cm Maxine Allen PA-C Work Phone: [facility] 02-19-2022 11:52-0400 Body weight 64.41 kg Maxine Allen PA-C Work Phone: [facility] 02-19-2022 11:52-0400 Heart rate 120 /min Maxine Allen PA-C Work Phone: [facility] 02-19-2022 11:52-0400 Respiratory rate 20 /min Maxine Allen PA-C Work Phone: [facility] 02-19-2022 11:52-0400 SaO2% (BldA) [Mass fraction] 98 % Maxine Allen PA-C Work Phone: [facility] Encounters Encounter Date Encounter Type Care Provider Facility Start: 04-03-2025 ambulatory Neftali Nowak Facility:[facility] Start: 03-07-2025 End: 03-07-2025 ambulatory Megan ROWLEY Facility:[facility] Start: 02-16-2025 End: 02-16-2025 ambulatory NOEL ROSSI Facility:[facility] Start: 02-07-2025 End: 02-07-2025 Patient encounter procedure Megan ROWLEY -[facility] Work Phone: Start: 02-07-2025 End: 02-07-[address] Noel Rossi MD Work Phone: [facility] Start: 02-07-2025 End: 02-07-2025 ambulatory NOEL ROSSI Facility:[facility] Start: 02-07-2025 Patient encounter procedure NOEL ROSSI [facility] Start: 02-07-2025 End: 02-07-2025 ambulatory NOEL ROSSI Facility:[facility] Start: 02-01-2025 Non-patient / Non-visit Dr. Connor JARAMILLO -[facility] Start: 02-01-2025 End: 02-01-[address] Noel Rossi MD Work Phone: -[facility] Start: 02-01-2025 End: 02-01-2025 Patient encounter procedure Megan Silverman PA -[facility] Work Phone: Start: 02-01-2025 End: 02-01-2025 ambulatory Noel Rossi Facility:[facility] Start: 12-14-2024 End: 12-14-2024 Chart abstracting [facility] MD [facility] Comment on above: Abstract (Cardiology [facility]) Start: 12-13-2024 End: 12-13-2024 Patient encounter procedure Megan Silverman [facility] Work Phone: Start: 12-13-2024 End: 12-13-[address] Noel Rossi MD Work Phone: [facility] Start: 10-18-2024 End: 10-18-[address] Noel Rossi MD Work Phone: [facility] Work Phone: Start: 10-18-2024 End: 10-18-2024 Patient encounter procedure Megan ROWLEY [facility] Work Phone: Start: 08-08-2024 End: 08-10-2024 Refill Noel Rossi MD Work Phone: [facility] Comment on above: Refill Request Start: 07-21-2024 End: 07-21-2024 Patient encounter procedure Megan ROWLEY -[facility] Work Phone: Start: 07-21-2024 End: 07-21-2024 ambulatory Noel Enid Facility:[facility] Start: 07-06-2024 End: 07-06-2024 Patient encounter procedure Megan Juan ROWLEY -[facility] Work Phone: Start: 07-06-2024 End: 07-06-2024 ambulatory Noel Enid Facility:[facility] Start: 06-14-2024 End: 06-14-2024 Chart abstracting Noel Rossi MD Work Phone: [facility] [place] Comment on above: Outside Cardiology Start: 06-14-2024 End: 06-14-2024 ambulatory Noel Rossi Facility:[facility] Start: 04-09-2024 End: 04-11-2024 Telephone encounter Noel Ross[facility] MD [facility]: [facility] Comment on above: Results Start: 04-08-2024 End: 04-08-2024 ambulatory NOEL ROSSI Facility:[facility] Start: 03-24-2024 End: 03-24-2024 Chart abstracting Noel Rossi MD Work Phone: [facility] [place] Comment on above: Outside Cardiology Start: 03-23-2024 End: 03-23-2024 ambulatory Noel Rossi Facility:[facility] Start: 03-22-2024 End: 03-22-2024 Telephone encounter Noel Rossi MD Work Phone: [facility] [place] Comment on above: blood pressure updat e/?take medication Start: 03-21-2024 End: 03-21-2024 Telephone encounter Noel Rossi MD Work Phone: [facility] [place] Comment on above: Patient Update Start: 03-15-2024 End: 03-15-2024 ambulatory NOEL ROSSI Facility:[facility] Start: 03-15-2024 End: 03-15-2024 Patient encounter procedure Noel Rossi MD Work Phone: [facility] [place] Comment on above: Aortic valve stenosi s, etiology of cardiac valve disease unspecified (Primary Dx); Chronic atrial fibrillation (HCC); Bilateral carotid artery stenosis; Essential hypertension Start: 03-14-2024 End: 03-14-2024 Chart abstracting Noel Rossi MD Work Phone: [facility] [place] Comment on above: ER Discharge Summary Start: 03-04-2024 End: 03-04-2024 Chart abstracting Noel Rossi MD Work Phone: [facility] Start: 03-01-2024 End: 03-01-2024 Chart abstracting Noel Rossi MD Work Phone: [facility] Comment on above: Outside H&P ER F/U ([facility] ) Start: 03-01-2024 End: 03-01-2024 Patient encounter procedure Noel Rossi MD Work Phone: [facility] Comment on above: Medicare annual well ness visit, subsequent (Primary Dx); Essential hypertension; Hyperlipidemia, mixed; Elevated hemoglobin A1c; Stage 3a chronic kidney disease (HCC); Bilateral carotid artery stenosis; Aortic valve stenosis, etiology of cardiac valve disease unspecified; Cardiac arrhythmia, unspecified cardiac arrhythmia type; Atrial fibrillation, unspecified type (HCC); Skin cancer screening; Age-related osteoporosis without current pathological fracture; Bilateral impacted cerumen; Advanced care planning/counseling discussion; Encounter for screening examination for other mental health and behavioral disorders; Screening for depression Start: 02-04-2024 End: 02-04-2024 Telephone encounter Noel Rossi MD Work Phone: [facility] Comment on above: requesting lab order s Start: 01-15-2024 End: 01-15-2024 Refill Noel Rossi MD Work Phone: [facility] Comment on above: Refill Request (need s refills of amlodipine,lisinopril,hctz) Start: 08-14-2023 Telephone encounter Kimmie Heath PA-C Work Phone: [facility] Comment on above: Patient Question Start: 08-03-2023 Telephone encounter Kimmie Heath PA-C Work Phone: [facility] Comment on above: Follow Up Start: 07-06-2023 Telephone encounter Noel Rossi MD Work Phone: [facility] Comment on above: Refill Request (PLEA SE SEND TODAY) Start: 02-25-2023 End: 02-25-2023 Patient encounter procedure Noel Rossi MD Work Phone: [facility] Comment on above: Medicare annual [facility] visit, subsequent (Primary Dx); Essential hypertension; Hyperlipidemia, mixed; Elevated hemoglobin A1c; Bilateral carotid artery stenosis; Aortic valve stenosis, etiology of cardiac valve disease unspecified; Pancreatic cyst; Stage 3a chronic kidney disease (HCC); Dizziness; Tinnitus of left ear; Advanced care planning/counseling discussion Start: 12-29-2022 Refill Jessy figueroa APRN.CNP Work Phone: [facility] [place] Comment on above: Refill Request; Refi ll Request Start: 12-12-2022 End: 12-12-2022 ambulatory NOEL ROSSI Facility:[facility] Start: 09-16-2022 ambulatory NOEL ROSSI Facili ty:[facility] Start: 08-07-2022 Telephone encounter Maxine marie PA-C Work Phone: [facility] [place] Comment on above: Results Start: 07-04-2022 Telephone encounter Deann Jang RT(R ) [facility] Comment on above: Orders (MRI) Start: 06-26-2022 Refill Noel collado MD Work Phone: [facility] [place] Comment on above: Refill Request Start: 05-21-2022 Telephone encounter Kimmie Heath PA-C Work Phone: [facility] Comment on above: Orders Start: 02-25-2022 Telephone encounter Maxine marie PA-C Work Phone: [facility] Comment on above: Results Start: 02-19-2022 End: 02-19-2022 Patient encounter procedure Maxine Allen PA-C Work Phone: [facility] [place] Comment on above: Medicare annual well ness visit, subsequent (Primary Dx); Advanced care planning/counseling discussion; Essential hypertension; Stage 3a chronic kidney disease (HCC); Pancreatic cyst; Elevated hemoglobin A1c; Age-related osteoporosis without current pathological fracture; Bilateral carotid artery stenosis; Encounter for lipid screening for cardiovascular disease; Benign paroxysmal positional vertigo, unspecified laterality; Skin lesion; Aortic valve stenosis, etiology of cardiac valve disease unspecified Start: 01-07-2022 Refill Noel collado MD Work Phone: [facility] Comment on above: Refill Request Start: 11-05-2021 End: 11-05-2021 Subsequent hospital visit by physician Mri 3 [place] [email or web address]. (I-Stat/1.5t) Work Phone: [facility] Comment on above: Pancreatic cyst [K86 .2] Start: 09-23-2021 Refill Noel collado MD Work Phone: [address] [place] [address] Comment on above: Refill Request Start: 07-22-2021 Refill Noel collado MD [facility] Comment on above: Refill Request Start: 01-30-2021 Patient encounter procedure Noel Rossi MD Work Phone: [facility] Work Phone: Procedures Date Procedure Procedure Detail Performing Clinician Start: 07-21-2024 Evaluation of diagno stic study results Dr. Noel Rossi MD Work Phone: Start: 07-06-2024 Evaluation of diagno stic study results Dr. Noel Rossi MD Work Phone: Start: 03-01-2024 Ecg routine ecg w/le ast 12 lds i&r only [facility] Provider Start: 03-01-2024 Adult depression screening assessment Noel Rossi MD Work Phone: Start: 11-05-2021 Mri abdomen w/o & w/contrast material Jourdan Dunham MD Work Phone: Plan of Treatment Date Care Activity Detail Author Start: 02-22-2027 Diabetes Screening Diabetes Screenin g [facility] Start: 01-07-2026 Diabetes Screening Diabetes Screenin g [facility] Start: 03-01-2025 Anxiety Screening Anxiety Screening [facility] Start: 03-01-2025 Depression Screening Depression Scre ening [facility] Start: 02-19-2025 DIABETES SCREEN DIABETES SCREEN [facility] Start: 02-07-2025 End: 02-07-2025 Evaluation of diagnostic study results [facility] Start: 02-07-2025 End: 02-07-2025 Patient encounter procedure [facility] Comment on above: Medicare wellness Start: 10-18-2024 End: 10-18-2024 Evaluation of diagnostic study results [facility] Start: 05-04-2024 Advance Directive Discussion Advance Directive Discussion [facility] Start: 05-04-2024 Medicare Advantage Annual Wellness Visit Medicare Advantage Annual Wellness Visit [facility] Start: 04-08-2024 End: 04-08-2024 Patient encounter procedure 04/08/2024 10:00 AM EST Office Visit [facility] [address] [place], [place] [id number] Bilateral carotid artery stenosis [I65.23] [facility] Comment on above: Bilateral carotid ar frederick stenosis [I65.23] Start: 03-15-2024 End: 03-15-2024 Patient encounter procedure 03/15/2024 11:20 AM EST Office Visit [facility] [address] [place] [address] Noel Rossi MD [address] [facility] [place] [address] [facility] follow up [facility] Comment on above: [facility] hospital follow up Start: 03-01-2024 End: 03-01-2024 Patient encounter procedure 03/01/2024 9:40 AM EDT Office Visit [facility] [address] [place] [address] Noel Rossi MD [address] [facility] [place] [address] physical [facility] [place] Comment on above: physical Start: 02-29-2024 End: 02-29-2024 Patient encounter procedure 02/29/2024 8:40 AM EDT Office Visit [facility] [address] [place] [id number] Noel Rossi MD [address] [place] [id number] [facility] Comment on above: Physical Start: 02-26-2024 Covid-19 Vaccine (#1) Covid-19 Vacci ne (#1) [facility] Comment on above: Postponed from 01/28 (Declined at this time) Start: 02-26-2024 Covid-19 Vaccine () Covid-19 Vaccine () [facility] Comment on above: Postponed from 01/02 (Declined at this time) Start: 02-04-2024 End: 05-05-2024 CBC W Auto Differential panel - Blood COMPLETE BLOOD COUNT AND DIFFERENTIAL Lab Routine Stage 3a chronic kidney disease (HCC) Medication management Expected: 02/04/2024, Expires: 05/05/2024 [facility] Comment on above: Expected: 02/04/2024 , Expires: 05/05/2024 Start: 02-04-2024 End: 05-05-2024 Comprehensive metabolic 2000 panel - Serum or Plasma COMPREHENSIVE METABOLIC PANEL Lab Routine Hypertension, essential Stage 3a chronic kidney disease (HCC) Elevated hemoglobin A1c Hyperlipidemia, mixed Expected: 02/04/2024, Expires: 05/05/2024 [facility] Work Phone: Comment on above: Expected: 02/04/2024 , Expires: 05/05/2024 Start: 02-04-2024 End: 05-05-2024 Hemoglobin A1c in Blood HEMOGLOBIN A1C Lab Routine Elevated hemoglobin A1c Expected: 02/04/2024, Expires: 05/05/2024 [facility] Comment on above: Expected: 02/04/2024 , Expires: 05/05/2024 Start: 02-04-2024 End: 05-05-2024 LIPID PANEL, NONFASTING LIPID PANEL, NONFASTING Lab Routine Hypertension, essential Hyperlipidemia, mixed Bilateral carotid artery stenosis Expected: 02/04/2024, Expires: 05/05/2024 [facility] Comment on above: Expected: 02/04/2024 , Expires: 05/05/2024 Start: 01-31-2024 DIABETES SCREEN DIABETES SCREEN [facility] Start: 01-03-2024 Covid-19 Vaccine () Covid-19 Vaccine () [facility] Start: 01-03-2024 Covid-19 Vaccine () Covid-19 Vaccine () [facility] Start: 05-04-2023 Advance Directive Discussion Advance Directive Discussion [facility] Start: 05-04-2023 Behavioral Health Screening Behavioral Health Screening [facility] Start: 05-04-2023 Depression Assessment Depression Ass essment 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 Start: 02-19-2023 BP CONTROLLED (<130/80) BP CONTROLLE D (<130/80) [facility] Start: 02-19-2023 HEMOGLOBIN/HEMATOCRIT HEMOGLOBIN/HEM ATOCRIT [facility] Start: 02-19-2023 SERUM CREATININE SERUM CREATININE [facility] Start: 01-26-2023 End: 03-28-2023 CBC W Auto Differential panel - Blood CBC + DIFF Lab Routine Essential hypertension Stage 3a chronic kidney disease (HCC) Expected: 01/26/2023, Expires: 03/28/2023 [facility] Work Phone: Comment on above: Expected: 01/26/2023 , Expires: 03/28/2023 Start: 01-26-2023 End: 03-28-2023 Comprehensive metabolic 2000 panel - Serum or Plasma COMP METABOLIC PANEL Lab Routine Essential hypertension Stage 3a chronic kidney disease (HCC) Elevated hemoglobin A1c Expected: 01/26/2023, Expires: 03/28/2023 [facility] Work Phone: Comment on above: Expected: 01/26/2023 , Expires: 03/28/2023 Start: 01-26-2023 End: 03-28-2023 Hemoglobin A1c in Blood HGB A1C Lab Routine Elevated hemoglobin A1c Expected: 01/26/2023, Expires: 03/28/2023 [facility] Work Phone: Comment on above: Expected: 01/26/2023 , Expires: 03/28/2023 Start: 01-26-2023 End: 03-28-2023 LIPID PANEL, NONFASTING LIPID PANEL, NONFASTING Lab Routine Essential hypertension Hyperlipidemia, mixed Expected: 01/26/2023, Expires: 03/28/2023 [facility] Work Phone: Comment on above: Expected: 01/26/2023 , Expires: 03/28/2023 Start: 01-26-2023 End: 03-28-2023 Urinalysis complete panel - Urine URINALYSIS, WITH MICROSCOPIC Lab Routine Essential hypertension Stage 3a chronic kidney disease (HCC) Elevated hemoglobin A1c Expected: 01/26/2023, Expires: 03/28/2023 [facility] Work Phone: Comment on above: Expected: 01/26/2023 , Expires: 03/28/2023 Start: 08-26-2022 End: 10-26-2022 LIPID PANEL, NONFASTING LIPID PANEL, NONFASTING Lab Routine Hyperlipidemia, mixed Expected: 08/26/2022, Expires: 10/26/2022 [facility] Work Phone: Comment on above: Expected: 08/26/2022 , Expires: 10/26/2022 Start: 05-04-2022 ADVANCE DIRECTIVE DISCUSSION ADVANCE DIRECTIVE DISCUSSION [facility] Start: 05-04-2022 DEPRESSION ASSESSMENT DEPRESSION ASS ESSMENT 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 Start: 02-19-2022 End: 04-21-2022 CBC W Auto Differential panel - Blood [facility] Work Phone: Comment on above: Expected: 02/19/2022 , Expires: 04/21/2022 Start: 02-19-2022 End: 04-21-2022 Comprehensive metabolic 2000 panel - Serum or Plasma [facility] Work Phone: Comment on above: Expected: 02/19/2022 , Expires: 04/21/2022 Start: 02-19-2022 End: 04-21-2022 Hemoglobin A1c in Blood [facility] Work Phone: Comment on above: Expected: 02/19/2022 , Expires: 04/21/2022 Start: 02-19-2022 End: 04-21-2022 LIPID PANEL, NONFASTING [facility] Work Phone: Comment on above: Expected: 02/19/2022 , Expires: 04/21/2022 Start: 02-19-2022 End: 04-21-2022 Urinalysis complete panel - Urine [facility] Work Phone: Comment on above: Expected: 02/19/2022 , Expires: 04/21/2022 Start: 01-30-2022 COVID-19 VACCINE (#1) COVID-19 VACCI NE (#1) [facility] Comment on above: Postponed from 07/28 (Declined at this time) Postponed from 01/28 (Declined at this time) Start: 01-30-2022 COVID-19 VACCINE (1) COVID-19 VACCIN E (1) [facility] Comment on above: Postponed from 07/28 (Declined at this time) Start: 01-30-2022 HEMOGLOBIN/HEMATOCRIT HEMOGLOBIN/HEM ATOCRIT [facility] Start: 01-30-2022 SERUM CREATININE SERUM CREATININE [facility] Start: 05-04-2021 ADVANCE DIRECTIVE DISCUSSION ADVANCE DIRECTIVE DISCUSSION [facility] Start: 08-02-2020 Screening for osteoporosis Bone Density Screening [facility] Start: 03-08-2020 BP CONTROLLED (<130/80) BP CONTROLLE D (<130/80) [facility] Start: 07-29-1958 Anxiety Screening Anxiety Screening [facility] Start: 07-29-1958 Depression Screening Depression Scre ening [facility] Start: 01-28-1941 COVID-19 VACCINE (#1) COVID-19 VACCI NE (#1) [facility] ECG COMPLETE ECG COMPLETE ECG Routine Essential hypertension Cardiac arrhythmia, unspecified cardiac arrhythmia type Ordered: 03/01/2024 [facility] Work Phone: Comment on above: Ordered: 03/01/2024 End: 09-01-2024 MR Biliary ducts and Pancreatic duct WO and W contrast IV MRI PANC/JOSE M WO/W IVCON Radiology Routine Biliary cyst Pancreatic cyst 1 Occurrences starting 08/03/2023 until 09/01/2024 [facility] Work Phone: Comment on above: 1 Occurrences starti ng 08/03/2023 until 09/01/2024 End: 09-01-2024 MR Unspecified body region 3D post processing MRI 3D POST PROCESSING Radiology Routine Biliary cyst Pancreatic cyst 1 Occurrences starting 08/03/2023 until 09/01/2024 [facility] Work Phone: Comment on above: 1 Occurrences starti ng 08/03/2023 until 09/01/2024 Mri abdomen w/o & w/contrast material MRI PANC/JOSE M WO/W IVCON Radiology Routine Pancreatic cyst 11/05/2021 10:35 AM EDT [facility] Work Phone: End: 06-20-2023 Mri abdomen w/o & w/contrast material MRI PANCREAS FUNCTION WO/W IVCON Radiology Routine Pancreatic cyst Right upper quadrant pain 1 Occurrences starting 05/21/2022 until 06/20/2023 [facility] Work Phone: Comment on above: 1 Occurrences starti ng 05/21/2022 until 06/20/2023 End: 08-03-2023 Mri abdomen w/o & w/contrast material MRI PANC/JOSE M WO/W IVCON Radiology Routine Pancreatic cyst Right upper quadrant pain 1 Occurrences starting 07/04/2022 until 08/03/2023 [facility] Work Phone: Comment on above: 1 Occurrences starti ng 07/04/2022 until 08/03/2023 Removal impacted cer umen irrigation/lvg unilat AMBULATORY EAR LAVAGE/IRRIGATION Procedures Routine Bilateral impacted cerumen Ordered: 03/01/2024 [facility] Comment on above: Ordered: 03/01/2024 End: 03-15-2025 US Carotid arteries - bilateral US CAROTID ARTERIES JOSE [facility] Vascular Lab Routine Bilateral carotid artery stenosis 1 Occurrences starting 03/15/2024 until 03/15/2025 [facility] Work Phone: Comment on above: 1 Occurrences starti ng 03/15/2024 until 03/15/2025 [facility] Payers Date Payer Category Payer Self-pay 2018 Medicare (Managed Care) PRIMETIM E [id number] 2018 Unknown PRIMETIME PRIMET HEIDE O POS [id number] 2018-Present [phone] [place], [place] [id number] O [id number] 2018 Unknown PRIMETIME PRIMET HEIDE O POS [id number] 2018-Present [phone] [place] [id number] [facility] [id number] 2018 Unknown [id number] Unknown [id number] 2.462 Unknown [id number]. 2.462 Unknown [id number]. 2.462 Unknown [id number] [id number]. 2.462 Unknown [id number] 2.16.840.1.553877.3.579. 2.462 Unknown [id number] 2.16.840.1.268340.3.579. 2.462 Unknown [id number] 2.16.840.1.027047.3.579. 2.462 Unknown [id number] 2.16.840.1.477726.3.579. 2.462 Unknown [id number] 2.16.840.1.557614.3.579. 2.462 Unknown [id number] 2.16.840.1.170679.3.579. 2.462 Unknown [id number] 2.16.840.1.298949.3.579. 2.462 Unknown [id number]. 2.462 Social History Date Type Detail Facility Start: 07-14-2018 End: 03-12-2024 Tobacco smoking status NHIS Never smoked tobacco [facility] Start: 07-14-2018 End: 02-19-2022 Tobacco use and exposure Smokeless tobacco non-user [facility] Start: 02-27-2021 End: 03-15-2024 Alcohol intake Lifetime non-drinker (finding) [facility] Start: 01-26-2020 History SDOH Alcohol Frequency 1 [facility] Start: 1940 Sex Assigned At Not on file [facility] Start: 06-03-2021 End: 02-19-2022 Exposure to SARS-CoV-2 (event) Not sure [facility] Start: 01-26-2020 End: 04-08-2020 History of Social function [facility] Work Phone: Start: 01-26-2020 End: 04-08-2020 Alcohol Use Disorder Identification Test - Consumption [AUDIT-C] [facility] Work Phone: How often to you hav e a drink containing alcohol? Never [facility] Work Phone: Start: 04-04-2012 Average Number of Drinks Not on file [facility] Work Phone: Start: 1940 Sex Assigned At Female W [facility] Clinical Notes 07-22-2021 to 03-07-2025 Bianka Redd MA - 12/14/2024 2:54 PM EDT Note Date & Type Note Facility 03-07-2025 Note HNO ID: [id number] Author: MINDY PRUITT MA Service: ? Author Type: Title Assistant Type: Progress Notes Filed: 03/07/2025 14:42 Note Text: Scan on 03/07/2025 1:55 PM by Provider, External, PA-C: Chemistry Scan on 03/07/2025 12:50 PM by Provider, External, PA-C: Hematology Scan on 03/07/2025 12:28 PM by Provider, External, PA-C: Miscellaneous Imaging Scan on 03/07/2025 10:56 AM by Provider, External, PA-C: Consultation - Cardiology [facility] 02-16-2025 Note HNO ID: [id number] Author: NOEL ROSSI MD Service: ? Author Type: Physician Type: Progress Notes Filed: 02/16/2025 14:24 Note Text: Chief Complaint Patient presents with: Follow Up: Cardiac surgical discussion HPI Isis Maldonado is a 84 year old female who presents here today for possible cardiac surgical discussion. Pt recently seen in office and had follow up shortly after last visit with Cardiology at the [facility]. Patient has been having cardiac work up done. Based off findings of all the testing that was completed they recommended surgical intervention with TAVR procedure. Patient wanted to discuss the procedure, her OV with Cardiology, the testing she had completed, and overall what to expect. Thinking about doing this procedure but wanted to talk with PCP first. Pt was asked to bring in material she received from [employer]. Isis is a 84-year-old female with a history of a heart murmur, sever presenting for consultation regarding a potential TAVR procedure. Isis has a history of a heart murmur since age 16, which has progressively worsened over time. She is currently considering a TAVR procedure due to the narrowing of her heart valve. She expresses concerns about the anesthesia to be used during the procedure, noting a previous experience where she had difficulty waking up after a colonoscopy. She also inquires about the possibility of needing a stent and whether this can be done at the same time as the TAVR procedure. Ada reports a history of AFib, which has been controlled, but she experienced dyspnea and orthopnea during episodes of AFib. She is currently on amiodarone, which has led to hypothyroidism. She has been prescribed levothyroxine 50 mcg daily to manage this condition. Recent lab results show elevated triglycerides at 227 mg/dL and LDL at 150 mg/dL, with HDL at 59 mg/dL. She has been advised to make dietary changes to lower her cholesterol levels. We also discussed starting Crestor and she has declined at this time. She is also increasing her water intake to improve kidney function, drinking 64 ounces of water daily. Past medical history, appointments, medications, allergies reviewed. Previous Medical History PAST MEDICAL HISTORY Diagnosis Date Age-related osteoporosis without current pathological fracture 08/05/2018 Spine and R hip August 2018 Anesthesia complication 2018 She had issues with slow awakening after her colonoscopy 2 years ago where they used midazolam, fentanyl and Benadryl at the time. Aortic valvar stenosis 08/05/2018 Echo 08/02/18 Mild aortic valve stenosis and regurgitation. Bilateral carotid artery stenosis 08/05/2018 US 08/05/18 bilateral 20-39% Bilateral renal cysts 07/14/2018 MRI: 07/02/2017: benign BPV (benign positional vertigo) 07/14/2018 Chronic atrial fibrillation (HCC) 03/15/[address] Nowak: [facility]. Delayed emergence from general anesthesia Elevated hemoglobin A1c 01/20/2019 Essential hypertension 07/14/2018 Heart murmur 07/14/2018 Known since she was 16 yo. 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 On amiodarone therapy 12/14/2024 Pancreatic cyst (HCC) 07/14/2018 Seen on MRI 07/02/2018, Pancreatic tail: 12 mm and 4 mm. Recommendation to repeat MRI in a year. Skin cancer screening 02/19/[address] Castañeda- Dermatology routinely for skin checks. Stage 3a chronic kidney disease (HCC) 01/30/2021 Previous Surgical History PAST SURGICAL HISTORY Procedure Laterality Date APPENDECTOMY 1952 COLONOSCOPY FLX DX W/COLLJ SPEC WHEN PFRMD 08/26/2018 Colonoscopy OOPHORECTOMY PARTIAL OR TOTAL 1967 one ovary removed due to a cyst. benign Family History FAMILY HISTORY Problem Relation Age of Onset Heart Mother congestive heart failure Stroke Father Cancer Sister on the neck, maybe lymphoma Coronary Artery Disease Sister 75 Hypertension Sister Prostate Cancer Brother 77 Coronary Artery Disease Brother 67 Stroke Brother Coronary Artery Disease Sister 70 Cancer Sister lymphoma Hypertension Sister Alzheimer's Disease No Family History Colon Cancer No Family History Breast Cancer No Family History Ovarian cancer No Family History Uterine Cancer No Family History Diabetes No Family History Hyperlipidemia No Family History Kidney Disease No Family History Seizures No Family History Thyroid No Family History Patient Allergies ALLERGIES No Known Allergies Current Medications Current Outpatient Medications on File Prior to Visit Medication Sig levothyroxine (SYNTHROID) 50 mcg tablet Take 1 tablet by mouth once daily. hydroCHLOROthiazide 25 mg tablet Take 1 tablet by mouth once daily. amiodarone (PACERONE) 200 mg tablet Take 1 tablet by mouth once daily. [facility] apixaban (ELIQUIS) 2.5 mg tab(s) Take 1 tablet by mouth two times a day. [facility] amLODIPine (more content not included)... [facility] 02-08-2025 Note HNO ID: [id number] Author: BIANKA REDD MA Service: ? Author Type: Title Assistant Type: Progress Notes Filed: 02/08/2025 09:43 Note Text: Scan on 02/07/2025 3:18 PM by Provider, Gail, PAYinkaC: [facility] 02-07-2025 Note HNO ID: [id number] Author: NOEL ROSSI MD Service: ? Author Type: Physician Type: Progress Notes Filed: 02/07/2025 11:27 Note Text: Isis Maldonado is a 84 year old female here for a Medicare wellness visit. Medicare Health Risk Assessment General Health Exercise: Minutes/Day 30 min Exercise: Days/Week 2 days Alcohol: Daily Use Never Alcohol: Drinks/Day Patient does not drink Alcohol: 6 or more drinks Never Feel off balance Yes (Notices some at bedtime when getting up.) Concerns: Teeth/Dentures Yes Concerns: Sexual function Yes Troubled by feelings None of the above Frequency: Eating healthy diet Nearly every day ADLs requiring help None of the above Safety precautions in home/vehicle No Smoke, vape, chews tobacco No Difficulty hearing Yes, I wear a hearing aid Difficulty seeing No Current Providers Specialists: I have reviewed specialist-related care of the patient in the medical record. Medical/Family history review Reviewed and updated problem list, medical/surgical/family/social history, medications, and allergies. Opioid use review Opioid Medications (last 90 days) No data to display Anxiety/Depression screening PHQ-2 Score: 1 (Lower risk for depression) ANMOL-2 Score: 2 (Lower risk for anxiety) Recommendation: no further intervention at this time Cognitive screening Mini Cog Score: 5 Cognitive screening reviewed and No further action needed (score 3-5). Mini-Cog Patient asked to remember the following three words: Banana, [place] and Chair Visuospatial/Executive Functioning: Clock drawin/2 (Normal clock with all number in correct sequence and position, hands are correct = 2 points, inability or refusal to draw a clock = 0) Three word recall: 3/3 Total score: 5/5 (Total score = word recall score + clock draw score) Functional Observation Was the patient's Timed Up AND Go test unsteady or >= 12 seconds? No Advance Care Planning Surrogate decision maker and/or advance care plan documented Measurements BP 120/64 Pulse 78 Resp 16 Ht 154.9 cm (5' 1) Wt 60.9 kg (134 lb 3.2 oz) BMI 25.36 kg/m? Vision Screening: Follows with optometry/ophthalmology Assessment/Plan Medicare annual wellness visit, subsequent (Z00.00) - Counseled on healthy diet and regular exercise - Fall avoidance information provided - Personalized prevention plan provided Chief Complaint Patient presents with: Medicare Wellness Exam HPI Isis Samaria Maldonado is a 84 year old female who presents here today for a medicare wellness and a routine follow up. Patient is here today with hx of HTN, CKD stage 3, Pancreatic cyst, elevated a1c, osteoporosis, coronary artery stenosis, aortic valve stenosis, BPPV, A. fib and those as below. Isis is accompanied by her daughter who is providing additional history. Isis reports feeling well overall. 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 She has a history of osteoporosis and was previously on Fosamax, which was discontinued due to jaw pain. She is currently taking calcium supplements and will discuss with her daughter whether to pursue further treatment options such as Prolia and getting a repeat DXA. She denies any current pain. She has a history of pancreatic cysts and was advised to undergo an MRI last year, which was not completed. She reports a previous endoscopic procedure where a cyst ruptured, leading to a decision not to pursue further imaging. She denies any abdominal pain, nausea, vomiting, or changes in bowel habits. She experiences occasional heartburn, which she attributes to dietary choices, specifically pie consumption. She monitors her blood pressure daily, with readings typically in the 110s/60s range. She denies any recent fevers, colds, or headaches. She has not experienced any changes in vision or hearing since her medication was adjusted. She denies any nasal or throat issues, neck lumps or swelling, wheezing, dyspnea, hemoptysis, chest pain, or lower extremity edema. She has not felt any palpitations since her last cardioversion. She denies any dysuria or hematuria but reports a longstanding increase in urinary frequency. She denies any unusual muscle or joint aches, skin lesions, rashes, or sores. She reports easy bruising, which she attributes to her blood thinner medication. She has not noticed any changes in her tolerance to heat or cold, increased thirst, syncope, seizures, or tremors. Past medical history, appointments, medications, allergies reviewed. Previous Medical History PAST MEDICAL HISTORY Diagnosis Date Age-related osteoporosis without current pathological fracture 08/05/2018 Spine and R hip August 2018 Anesthesia complication 2018 She had issues with slow awakening after her colonoscopy 2 years ago where they used midazolam, fentanyl and Benadryl at the time. Aortic valvar stenos (more content not included)... [facility] 02-02-2025 Note HNO ID: [id number] Author: BIANKA REDD MA Service: ? Author Type: Title Assistant Type: Progress Notes Filed: 02/02/2025 09:06 Note Text: Scan on 02/01/2025 8:13 PM by Gail Levine PA-C: [facility] 12-14-2024 Note HNO ID: [id number] Author: BIANKA REDD MA Service: ? Author Type: Title Assistant Type: Progress Notes Filed: 12/14/2024 14:55 Note Text: Scan on 12/13/2024 4:37 PM by Gail Levine PA-C: [facility] 12-14-2024 History of Present illness Narrative Scan on 12/13/2024 4:37 PM by ProviderGail PA-C: [facility] documented in this encounter [facility] 12-13-2024 Evaluation note Diagnosis Onset Date Resolution Aortic valve stenosis acute Dec us2024 3:34pm Mixed hyperlipidemia acute Augu st 2024 3:34pm PAF (paroxysmal atrial fibrillation) acute December 13 3:34pm HTN (hypertension) chronic December 13, 2024 3:34pm Aortic valve stenosis acute Feb 2:01pm Encounter for monitoring anti-arrhythmic therapy acute February 07, 2025 2:01pm PAF (paroxysmal atrial fibrillation) acute February 07 2:01pm HTN (hypertension) chronic 2024 2:01pm [facility] Work Phone: 1(665) 615-741206-17-2025 Evaluation note* Diagnosis Onset Date Resolution Status Admit Date Aortic valve stenosis acute Oct 9:22am Mixed hyperlipidemia acute October 18, 2024 9:22am PAF (paroxysmal atrial fibrillation) acute October 18, 2024 9:22am HTN (hypertension) chronic October 022024 9:22am Aortic valve stenosis acute Dec 3:34pm Mixed hyperlipidemia acute Decu st 2024 3:34pm PAF (paroxysmal atrial fibrillation) acute December 13 3:34pm HTN (hypertension) chronic December 13, 2024 3:34pm [facility] Work Phone: 1(969) 354-641506-17-2025 Evaluation note* Diagnosis Onset Date Resolution Status Admit Date Aortic valve stenosis acute Oct 9:22am Mixed hyperlipidemia acute October 18, 2024 9:22am PAF (paroxysmal atrial fibrillation) acute October 18, 2024 9:22am HTN (hypertension) chronic October 022024 9:22am Aortic valve stenosis acute Dec 3:34pm Mixed hyperlipidemia acute Augu st 2024 3:34pm PAF (paroxysmal atrial fibrillation) acute December 13 3:34pm HTN (hypertension) chronic December 13, 2024 3:34pm Encounter for monitoring anti-arrhythmic therapy acute February 07, 2025 2:01pm [facility] Work Phone: [phone]) [phone] Telephone encounter Note* Telephone Encounter - Luci Gaona LPN - 08/10/2024 4:03 PM EDT Patient returned call and went over notes below from Dr Rossi several times to get patient to understand. Advised her to contact the pharmacy should have refills on the rx as below. [facility]04-09-2025 Miscellaneous Notes* Telephone Encounter - Luci Gaona LPN - 08/10/2024 4:03 PM EDT Patient returned call and went over notes below from Dr Rossi several times to get patient to understand. Advised her to contact the pharmacy should have refills on the rx as below. * Telephone Encounter - Rinku Mg MA - 08/10/2024 3:52 PM EDT Attempted to contact patient; phone rang someone picked up. I said Hello.. no one responded. Will try again. Rinku Mg MA' * Telephone Encounter - Noel Rossi MD - 08/08/2024 10:22 PM EDT Please advise patient the her Metoprolol, Amlodipine and Eliquis all come from the [facility]. It looks like refills for the Amlodipine and Metoprolol were sent in on 06/14/2024 for 3 months with a years refills. The Eliquis was sent in on 07/12/24 for a month with 2 refills All three went to [facility]. Did she contact them to get refills ready? The following approved medication requests have been transmitted electronically. Requested Prescriptions Signed Prescriptions Disp Refills hydroCHLOROthiazide 25 mg tablet 90 tablet 1 Sig: Take 1 tablet by mouth once daily. Authorizing Provider: NOEL ROSSI metoprolol tartrate, short acting, (LOPRESSOR) 50 mg tablet 60 tablet 1 Sig: Take 1 tablet by mouth two times a day. [facility] Authorizing Provider: NOEL ROSSI apixaban (ELIQUIS) 2.5 mg tab(s) Sig: Take 1 tablet by mouth two times a day. [facility] Authorizing Provider: NOEL ROSSI amLODIPine (NORVASC) 5 mg tablet 90 tablet Sig: Take 1 tablet by mouth once daily. [facility] Authorizing Provider: NOEL ROSSI MD * Telephone Encounter - Roland Covarrubias LPN - 08/08/2024 5:45 PM EDT Images from the original note were not included. Amlodipine and Eliquis are both prescribed by Cardiology. * Telephone Encounter - Winnie Salazar - 08/08/2024 2:36 PM EDT Prescription Refill Information The patient has been identified by name and date of : Yes Caregiver verified no other encounters exist for this prescription request: Yes Caregiver confirmed with patient/requestor that no other refills are due, in the near future, with this provider at this time: Yes The last office visit in the department: 03/15/24 Does the patient have a future office visit with this provider/department: Yes Requested Prescriptions Pending Prescriptions Disp Refills hydroCHLOROthiazide 25 mg tablet 90 tablet 3 Sig: Take 1 tablet by mouth once daily. apixaban (ELIQUIS) 2.5 mg tab(s) 180 tablet 3 Sig: Take 1 tablet by mouth two times a day. metoprolol tartrate, short acting, (LOPRESSOR) 50 mg tablet 180 tablet 3 Sig: Take 1 tablet by mouth two times a day. amLODIPine (NORVASC) 5 mg tablet 90 tablet 3 Sig: Take 1 tablet by mouth once daily. Several were listed only as Med updates. Out of 2 medications today. Winnie Coronel August 08, 2024 2:38 PM [facility] Telephone encounter Note * Telephone Encounter - Rinku Mg MA - 08/10/2024 3:52 PM EDT Attempted to contact patient; phone rang someone picked up. I said Hello.. no one responded. Will try again. iRnku Mg MA' [facility]04-07-2025 Telephone encounter Note* Telephone Encounter - Noel Rossi MD - 08/08/2024 10:22 PM EDT Please advise patient the her Metoprolol, Amlodipine and Eliquis all come from the [facility]. It looks like refills for the Amlodipine and Metoprolol were sent in on 06/14/2024 for 3 months with a years refills. The Eliquis was sent in on 07/12/24 for a month with 2 refills All three went to [facility]. Did she contact them to get refills ready? The following approved medication requests have been transmitted electronically. Requested Prescriptions Signed Prescriptions Disp Refills hydroCHLOROthiazide 25 mg tablet 90 tablet 1 Sig: Take 1 tablet by mouth once daily. Authorizing Provider: NOEL ROSSI metoprolol tartrate, short acting, (LOPRESSOR) 50 mg tablet 60 tablet 1 Sig: Take 1 tablet by mouth two times a day. [facility] Authorizing Provider: NOEL ROSSI apixaban (ELIQUIS) 2.5 mg tab(s) Sig: Take 1 tablet by mouth two times a day. [facility] Authorizing Provider: NOEL ROSSI amLODIPine (NORVASC) 5 mg tablet 90 tablet Sig: Take 1 tablet by mouth once daily. [facility] Authorizing Provider: NOEL ROSSI MD [facility]04-07-2025 Telephone encounter Note* Telephone Encounter - Roland Covarrubias LPN - 08/08/2024 5:45 PM EDT Images from the original note were not included. Amlodipine and Eliquis are both prescribed by Cardiology. [facility]04-07-2025 Telephone encounter Note* Telephone Encounter - Winnie Salazar - 08/08/2024 2:36 PM EDT Prescription Refill Information The patient has been identified by name and date of : Yes Caregiver verified no other encounters exist for this prescription request: Yes Caregiver confirmed with patient/requestor that no other refills are due, in the near future, with this provider at this time: Yes The last office visit in the department: 03/15/24 Does the patient have a future office visit with this provider/department: Yes Requested Prescriptions Pending Prescriptions Disp Refills hydroCHLOROthiazide 25 mg tablet 90 tablet 3 Sig: Take 1 tablet by mouth once daily. apixaban (ELIQUIS) 2.5 mg tab(s) 180 tablet 3 Sig: Take 1 tablet by mouth two times a day. metoprolol tartrate, short acting, (LOPRESSOR) 50 mg tablet 180 tablet 3 Sig: Take 1 tablet by mouth two times a day. amLODIPine (NORVASC) 5 mg tablet 90 tablet 3 Sig: Take 1 tablet by mouth once daily. Several were listed only as Med updates. Out of 2 medications today. Winnie Coronel August 08, 2024 2:38 PM [facility]03-05-2025 Evaluation note* Diagnosis Onset Date Resolution Status Admit Date Aortic valve stenosis acute Jul 7:55am Atrial fibrillation with rap id ventricular response acute July 06, 2024 7:55am Mixed hyperlipidemia acute Clark h 2024 7:55am HTN (hypertension) chronic July 06, 2024 7:55am Aortic valve stenosis acute Jul 1:34pm Atrial fibrillation acute July 21, 2024 1:34pm Atrial fibrillation with rap id ventricular response acute July 21, 2024 1:34pm Mixed hyperlipidemia acute Clark h 2024 1:34pm HTN (hypertension) chronic July 21, 2024 1:34pm Aortic valve stenosis acute Gus 2024 9:22am Atrial fibrillation acute October 18, 2024 9:22am Atrial fibrillation with rap id ventricular response acute October 18, 2024 9:22am Mixed hyperlipidemia acute October 18, 2024 9:22am HTN (hypertension) chronic October 022024 9:22am [facility] [employer] Work Phone: 1(756) 401-794102-11-2025 NoteHNO ID: [id number] Author: MAXIM ALFARO LPN Service: ? Author Type: LICENSED NURSE Type: Progress Notes Filed: 06/14/2024 12:02 Note Text: Scan on 06/14/2024 10:26 AM by ProviderGail PA-C: [facility] History of Present illness Narrative* Maxim Alfaro LPN - 06/14/2024 12:01 PM EST Scan on 06/14/2024 10:26 AM by Gail Levine PA-C: Consultation - Cardiology documented [facility] Telephone encounter Note * Telephone Encounter - Esperanza Webb - 04/11/2024 8:14 AM EST Patient contacted office and received the provider's message. She voiced understanding. [facility]12-09-2024 Miscellaneous Notes* Telephone Encounter - Esperanza Webb - 04/11/2024 8:14 AM EST Patient contacted office and received the provider's message. She voiced understanding. * Telephone Encounter - Seun Xiao MA - 04/09/2024 11:09 AM EST TC to patient - mailbox full. Please try again later. * Telephone Encounter - Noel Rossi MD - 04/09/2024 9:42 AM EST Let patient know the US of her neck arteries show no increase in narrowing compared to 2020 and still less than 50%. documented in [facility] encounterJ[facility] Telephone encounter Note * Telephone Encounter - Seun Xiao MA - 04/09/2024 11:09 AM EST TC to patient - mailbox full. Please try again later. [facility]12-07-2024 Telephone encounter Note* Telephone Encounter - Noel Rossi MD - 04/09/2024 9:42 AM EST Let patient know the US of her neck arteries show no increase in narrowing compared to 2020 and still less than 50%. [facility]11-21-2024 Note* Addendum Note - Noel Rossi MD - 03/24/2024 8:33 AM ESTAddended by: NOEL ROSSI on: 03/24/2024 08:33 AM Modules accepted: Orders [facility]11-21-2024 Miscellaneous Notes* Addendum Note - Noel Rossi MD - 03/24/2024 8:33 AM ESTAddended by: NOEL ROSSI on: 03/24/2024 08:33 AM Modules accepted: Orders documented in this encounterJ[facility]. [facility]11-[facility]-2024 NoteHNO ID: [id number] Author: MAXIM ALFARO LPN Service: ? Author Type: LICENSED NURSE Type: Progress Notes Filed: 03/24/2024 07:17 Note Text: Scan on 03/23/2024 2:07 PM by Provider, External, PA-C: [facility] History of Present illness Narrative* Maxim Alfaro LPN - 03/24/2024 7:16 AM EST Scan on 03/23/2024 2:07 PM by Provider, Gail, PA-C: Consultation - Cardiology documented in [facility] encounterJ[facility] Telephone encounter Note * Telephone Encounter - Adelita Wilson LPN - 03/22/2024 2:48 PM EST Spoke with pt and information listed below given. Pt verbalizes understanding. Adelita Wilson LPN [facility]11-19-2024 Miscellaneous Notes* Telephone Encounter - Adelita Wilson LPN - 03/22/2024 2:48 PM EST Spoke with pt and information listed below given. Pt verbalizes understanding. Adelita Wilson LPN * Telephone Encounter - Noel Rossi MD - 03/22/2024 1:02 PM EST Advise patient to stay on the 37.5 mg tabs for now. If her pulse goes up and her blood pressure is not below 105/60 advise her to take just a 1/2 of the 50 mg pill to see if this brings the pulse back down. * Telephone Encounter - Adelita Wilson LPN - 03/22/2024 11:34 AM EST Pt calling with blood pressure and heart rate 03-22-24 AM 102/74 HR 64 Should she take the Metoprolol 50 mg tablets. Please advise pt. Adelita Wilson LPN documented in this encounterJ[facility] Telephone encounter Note * Telephone Encounter - Noel Rossi MD - 03/22/2024 1:02 PM EST Advise patient to stay on the 37.5 mg tabs for now. If her pulse goes up and her blood pressure is not below 105/60 advise her to take just a 1/2 of the 50 mg pill to see if this brings the pulse back down. [facility]11-19-2024 Telephone encounter Note* Telephone Encounter - Adelita Wilson LPN - 03/22/2024 11:34 AM EST Pt calling with blood pressure and heart rate 03-22-24 AM 102/74 HR 64 Should she take the Metoprolol 50 mg tablets. Please advise pt. Adeliat Wilson LPN [facility]11-18-2024 Telephone encounter Note* Telephone Encounter - Bianka Redd MA - 03/21/2024 10:33 AM EST Pt called and notified of Providers message below. Made patient aware to continue checking BP and HR. Update office if having any issues. Bianka Redd MA [facility]11-18-2024 Miscellaneous Notes* Telephone Encounter - Bianka Redd MA - 03/21/2024 10:33 AM EST Pt called and notified of Providers message below. Made patient aware to continue checking BP and HR. Update office if having any issues. Bianka Redd MA * Telephone Encounter - Noel Rossi MD - 03/21/2024 10:02 AM EST Let patient know I will send in a script to increase the metoprolol to 50 mg twice a day. The following approved medication requests have been transmitted electronically. Requested Prescriptions Signed Prescriptions Disp Refills metoprolol tartrate, short acting, (LOPRESSOR) 50 mg tablet 60 tablet 1 Sig: Take 1 tablet by mouth two times a day. Authorizing Provider: NOEL ROSSI MD * Telephone Encounter - Bebe Mahan RN - 03/21/2024 9:24 AM EST Call placed to patient. Current BP is 117/87 and HR 131 (she reports at this time she isn't feeling palpitations). Patient took metoprolol this morning after speaking with me earlier (around 830 am). Bebe Mahan RN * Telephone Encounter - Noel Rossi MD - 03/21/2024 9:10 AM EST I wouldn't be against increasing the dose of metoprolol, however I need to know what her pulse rateand BP has been since I increased her to 37.5 mg twice a day. * Telephone Encounter - Bebe Mahan RN - 03/21/2024 8:21 AM EST Patient calls with update since appointment on 03/15/2024. Patient reports that she is still not sleeping. She says she is not certain why. Denies CP. Reportsthat she continues to have palpitations when she lies down. Patient reports that she doesn't keep track of her heart rate at home. Patient taking the increased metoprolol 37.5 mg twice daily at 8 am and 8 pm along with all other medications prescribed. Patient scheduled to see [facility] on 03/23/2024 and asking for further recommendations until then. Asked patient if she was wanting a recommendation for something for sleep since the recommendation is to follow up with cardiology for chronic atrial fib. Patient reports that she is not sure what she is wanting as she doesn't like to take medications tomake her sleep. Patient hasn't tried any OTC sleep aides. Patient requested message be sent to provider to see if he has any further recommendations. Bebe Mahan RN documented in this encounterJ[facility]. [facility]11-[facility] Telephone encounter Note * Telephone Encounter - Noel Rossi MD - 03/21/2024 10:02 AM EST Let patient know I will send in a script to increase the metoprolol to 50 mg twice a day. The following approved medication requests have been transmitted electronically. Requested Prescriptions Signed Prescriptions Disp Refills metoprolol tartrate, short acting, (LOPRESSOR) 50 mg tablet 60 tablet 1 Sig: Take 1 tablet by mouth two times a day. Authorizing Provider: NOEL ROSSI MD [facility]11-18-2024 Telephone encounter Note* Telephone Encounter - Bebe Mahan RN - 03/21/2024 9:24 AM EST Call placed to patient. Current BP is 117/87 and HR 131 (she reports at this time she isn't feeling palpitations). Patient took metoprolol this morning after speaking with me earlier (around 830 am). Beeb Mahan RN [facility]11-18-2024 Telephone encounter Note* Telephone Encounter - Noel Rossi MD - 03/21/2024 9:10 AM EST I wouldn't be against increasing the dose of metoprolol, however I need to know what her pulse rateand BP has been since I increased her to 37.5 mg twice a day. [facility]11-18-2024 Telephone encounter Note* Telephone Encounter - Bebe Mahan RN - 03/21/2024 8:21 AM EST Patient calls with update since appointment on 03/15/2024. Patient reports that she is still not sleeping. She says she is not certain why. Denies CP. Reportsthat she continues to have palpitations when she lies down. Patient reports that she doesn't keep track of her heart rate at home. Patient taking the increased metoprolol 37.5 mg twice daily at 8 am and 8 pm along with all other medications prescribed. Patient scheduled to see [facility] on 03/23/2024 and asking for further recommendations until then. Asked patient if she was wanting a recommendation for something for sleep since the recommendation is to follow up with cardiology for chronic atrial fib. Patient reports that she is not sure what she is wanting as she doesn't like to take medications tomake her sleep. Patient hasn't tried any OTC sleep aides. Patient requested message be sent to provider to see if he has any further recommendations. Bebe Mahan RN [facility]11-12-2024 NoteHNO ID: [id number] Author: NOEL ROSSI MD Service: ? Author Type: Physician Type: Progress Notes Filed: 03/15/2024 12:00 Note Text: Chief Complaint Patient presents with: Hospital F/U HPI Ada Samaria Maldonado is a 83 year old female who presents here today for Hospital Discharge Follow up.. Patient was sent to [facility] on 03/01/2024 from PCP with A-fib. Patient was started on Diltiazem 120 mg twice daily. Metoprolol 25 mg twice a day Eliquis 5 mg twice daily Patient was seen again the [facility] on 03/12/2024 for palpitations and heaviness in her legs. Patient was told to schedule with cardiology; patient has appointment with [facility]. Patient was instructed to D/C amlodipine. Patient indicated today that she has been feeling fatigue and some tightness/weakness in her legs. Per patient when she was discharged from [facility] on 03/04/2024 she was sent home on diltiazem ER 12 hr 120 twice a day, metoprolol tartrate 25 mg twice a day and Eliquis 2.5 mg twice a day. She was to continue the Norvasc 10 mg a day and lisinopril 30 mg twice a day When she returned to the ER on 03/12/2024 she was instructed to stop the amlodipine. Patient denies any shortness of breath, chest pain or increased leg edema from base line. What she is having is palpitations at night that make it difficult to sleep at times. Rate has been upper nineties to about 120 based omn patient's documentation. Past medical history, appointments, medications, allergies reviewed. Previous Medical History PAST MEDICAL HISTORY Diagnosis Date Age-related osteoporosis without current pathological fracture 08/05/2018 Spine and R hip August 2018 Anesthesia complication 2018 She had issues with slow awakening after her colonoscopy 2 years ago where they used midazolam, fentanyl and Benadryl at the time. Aortic valvar stenosis 08/05/2018 Echo 08/02/18 Mild aortic valve stenosis and regurgitation. Bilateral carotid artery stenosis 08/05/2018 US 08/05/18 bilateral 20-39% Bilateral renal cysts 07/14/2018 MRI: 07/02/2017: benign BPV (benign positional vertigo) 07/14/2018 Delayed emergence from general anesthesia Elevated hemoglobin A1c 01/20/2019 Essential hypertension 07/14/2018 Heart murmur 07/14/2018 Known since she was 16 yo. Hyperlipidemia, mixed 02/25/2022 Pancreatic cyst 07/14/2018 Seen on MRI 07/02/2018, Pancreatic tail: 12 mm and 4 mm. Recommendation to repeat MRI in a year. Skin cancer screening 02/19/[address] Castañeda- Dermatology routinely for skin checks. Stage 3a chronic kidney disease (HCC) 01/30/2021 Previous Surgical History PAST SURGICAL HISTORY Procedure Laterality Date APPENDECTOMY 1952 COLONOSCOPY FLX DX W/COLLJ SPEC WHEN PFRMD 08/26/2018 Colonoscopy OOPHORECTOMY PARTIAL OR TOTAL 1966 one ovary removed due to a cyst. benign Family History FAMILY HISTORY Problem Relation Age of Onset Heart Mother congestive heart failure Stroke Father Cancer Sister on the neck, maybe lymphoma Coronary Artery Disease Sister 75 Hypertension Sister Prostate Cancer Brother 77 Coronary Artery Disease Brother 67 Stroke Brother Coronary Artery Disease Sister 70 Cancer Sister lymphoma Hypertension Sister Alzheimer's Disease No Family History Colon Cancer No Family History Breast Cancer No Family History Ovarian cancer No Family History Uterine Cancer No Family History Diabetes No Family History Hyperlipidemia No Family History Kidney Disease No Family History Seizures No Family History Thyroid No Family History Patient Allergies ALLERGIES No Known Allergies Current Medications Current Outpatient Medications on File Prior to Visit Medication Sig apixaban (ELIQUIS) 2.5 mg tab(s) Take 1 tablet by mouth two times a day. metoprolol tartrate, short acting, (LOPRESSOR) 25 mg tablet Take 1 tablet by mouth two times a day. dilTIAZem ER (CARDIZEM SR) 120 mg 12 hr capsule Take 1 capsule by mouth two times a day. amLODIPine (NORVASC) 10 mg tablet Take 1 tablet by mouth once daily. hydroCHLOROthiazide 25 mg tablet Take 1 tablet by mouth once daily. lisinopril (ZESTRIL) 30 mg tablet Take 1 tablet by mouth two times a day. secretin, Human, ([employer]) 16 mcg solr For MRI PANCREAS FUNCTION WO/W IVCON. Inject 0.2 mcg/kg/dose intravenously as directed. Slow push at the appropriate time during MRI POTASSIUM-99 ORAL Take by mouth. MAGNESIUM CHLORIDE ORAL Take by mouth. Gnucq-7-CLC-EPA-Fish Oil 1,200 (144-216) mg cap Take 2 capsules by mouth once daily. No current facility-administered medications on file prior to visit. Social History Social History Tobacco Use Smoking status: Never Smokeless tobacco: Never Vaping Use Vaping status: Never Used Substance Use Topics Alcohol use: Never Drug use: Never Review of Symptoms REVIEW OF SYSTEMS See HPI EXAM: BP 142/78 Pulse 94 Resp 16 Wt 63 kg (139 lb) BMI 26.70 kg/m? General Appearance: Well (more content not included)...[facility]11-12-2024 History of Present illness Narrative* Noel Rossi MD - 03/15/2024 11:07 AM EST Chief Complaint Patient presents with: Hospital F/U HPI Ada Samaria Maldonado is a 83 year old female who presents here today for Hospital Discharge Follow up.. Patient was sent to [facility] on 03/01/2024 from PCP with A-fib. Patient was started on Diltiazem 120 mg twice daily. Metoprolol 25 mg twice a day Eliquis 5 mg twice daily Patient was seen again the [facility] on 03/12/2024 for palpitations and heaviness in her legs. Patient was told to schedule with cardiology; patient has appointment with [facility]. Patient was instructed to D/C amlodipine. Patient indicated today that she has been feeling fatigue and some tightness/weakness in her legs. Per patient when she was discharged from [facility] on 03/04/2024 she was sent home on diltiazem ER 12 hr 120 twice a day, metoprolol tartrate 25 mg twice a day and Eliquis 2.5 mg twice a day. She was to continue the Norvasc 10 mg a day and lisinopril 30 mg twice a day When she returned to the ER on 03/12/2024 she was instructed to stop the amlodipine. Patient denies any shortness of breath, chest pain or increased leg edema from base line. What she is having is palpitations at night that make it difficult to sleep at times. Rate has been upper nineties to about 120 based omn patient's documentation. Past medical history, appointments, medications, allergies reviewed. Previous Medical History PAST MEDICAL HISTORY Diagnosis Date Age-related osteoporosis without current pathological fracture 08/05/2018 Spine and R hip August 2018 Anesthesia complication 2018 She had issues with slow awakening after her colonoscopy 2 years ago where they used midazolam, fentanyl and Benadryl at the time. Aortic valvar stenosis 08/05/2018 Echo 08/02/18 Mild aortic valve stenosis and regurgitation. Bilateral carotid artery stenosis 08/05/2018 US 08/05/18 bilateral 20-39% Bilateral renal cysts 07/14/2018 MRI: 07/02/2017: benign BPV (benign positional vertigo) 07/14/2018 Delayed emergence from general anesthesia Elevated hemoglobin A1c 01/20/2019 Essential hypertension 07/14/2018 Heart murmur 07/14/2018 Known since she was 16 yo. Hyperlipidemia, mixed 02/25/2022 Pancreatic cyst 07/14/2018 Seen on MRI 07/02/2018, Pancreatic tail: 12 mm and 4 mm. Recommendation to repeat MRI in a year. Skin cancer screening 02/19/[address] Castañeda- Dermatology routinely for skin checks. Stage 3a chronic kidney disease (HCC) 01/30/2021 Previous Surgical History PAST SURGICAL HISTORY Procedure Laterality Date APPENDECTOMY 1952 COLONOSCOPY FLX DX W/COLLJ SPEC WHEN PFRMD 08/26/2018 Colonoscopy OOPHORECTOMY PARTIAL OR TOTAL 1966 one ovary removed due to a cyst. benign Family History FAMILY HISTORY Problem Relation Age of Onset Heart Mother congestive heart failure Stroke Father Cancer Sister on the neck, maybe lymphoma Coronary Artery Disease Sister 75 Hypertension Sister Prostate Cancer Brother 77 Coronary Artery Disease Brother 67 Stroke Brother Coronary Artery Disease Sister 70 Cancer Sister lymphoma Hypertension Sister Alzheimer's Disease No Family History Colon Cancer No Family History Breast Cancer No Family History Ovarian cancer No Family History Uterine Cancer No Family History Diabetes No Family History Hyperlipidemia No Family History Kidney Disease No Family History Seizures No Family History Thyroid No Family History Patient Allergies ALLERGIES No Known Allergies Current Medications Current Outpatient Medications on File Prior to Visit Medication Sig apixaban (ELIQUIS) 2.5 mg tab(s) Take 1 tablet by mouth two times a day. metoprolol tartrate, short acting, (LOPRESSOR) 25 mg tablet Take 1 tablet by mouth two times a day. dilTIAZem ER (CARDIZEM SR) 120 mg 12 hr capsule Take 1 capsule by mouth two times a day. amLODIPine (NORVASC) 10 mg tablet Take 1 tablet by mouth once daily. hydroCHLOROthiazide 25 mg tablet Take 1 tablet by mouth once daily. lisinopril (ZESTRIL) 30 mg tablet Take 1 tablet by mouth two times a day. secretin, Human, (CHIROSTIM) 16 mcg solr For MRI PANCREAS FUNCTION WO/W IVCON. Inject 0.2 mcg/kg/dose intravenously as directed. Slow push at the appropriate time during MRI POTASSIUM-99 ORAL Take by mouth. MAGNESIUM CHLORIDE ORAL Take by mouth. Vzhcu-[employer]-EPA-Fish Oil 1,200 (144-216) mg cap Take 2 capsules by mouth once daily. No current facility-administered medications on file prior to visit. Social History Social History Tobacco Use Smoking status: Never Smokeless tobacco: Never Vaping Use Vaping status: Never Used Substance Use Topics Alcohol use: Never Drug use: Never Review of Symptoms REVIEW OF SYSTEMS See HPI EXAM: BP 142/78 Pulse 94 Resp 16 Wt 63 kg (139 lb) BMI 26.70 kg/m General Appearance: Well appearing, alert, in no acute distress, well-hydrated, well nourished.. Neck: Supple, no adenopathy; thyroid symmetric, normal size, no bruits. Lungs: Lungs clear to auscultation. No wheezing, rhonchi, rales.. Heart: Negative findings: S1 normal, S2 normal, no rubs, clicks or gallops, Positive findings: irregularly irregular rhythm, 2/6 JESSICA. Abdomen: Normal abdominal exam, Abdomen soft, non-tender. Bowel sounds normal. No masses, organomegaly. Extremities: No deformities, edema, skin discoloration, Good capillary refill. . Health Maintenance List Bone Density Screening due on 08/02/2020 Depression Screening due on 03/01/2025 Anxiety Screening due on 03/01/2025 Diabetes Screening due on 02/22/2027 Advance Directive Discussion Completed DTaP,Tdap,Td Vaccine Discontinued Influenza Vaccine Discontinued Colorectal Cancer Screening Discontinued RSV Vaccine Discontinued Shingrix Vaccine Discontinued Covid-19 Vaccine Discontinued Pneumococcal Vaccine: 65+ Discontinued Data reviewed A/P ASSESSMENT/PLAN: 1. Aortic valve stenosis, etiology of cardiac valve disease unspecified - ICD9: 424.1, ICD10: I35.0(primary diagnosis) - clinically stable and cont f/u with cardio. 2. Chronic atrial fibrillation (HCC) - ICD9: 427.31, ICD10: I48.20 - as per #1 - will increase metoprolol to 37.5 mg twice a day. - patient to see cardio on 03/23/2024 3. Bilateral carotid artery stenosis - ICD9: 433.10, 433.30, ICD10: I65.23 Check - US CAROTID ARTERIES [facility] 4. Essential hypertension - ICD9: 401.9, ICD10: I10 - Uncontrolled - Increase metoprolol tartrate to 37.5 mg twice a day. - Recommend home blood pressure monitoring, to bring results to next visit - Encouraged sodium restriction, DASH or Mediterranean diet - Recommend regular aerobic exercise Requested Prescriptions Signed Prescriptions Disp Refills metoprolol tartrate 37.5 mg tab 60 tablet 5 Sig: Take 1 tablet by mouth two times a day. F/u in Feb 2025 for extensive. I spent a total of 40 minutes on the date of the service which included preparing to see the patient, [id number] patient care, completing clinical documentation, performing a medically appropriate examination, counseling and educating the patient/family/caregiver and ordering medications, tests, or procedures. Noel Rossi MD documented in this encounterJ.[facility]. [facility]11[facility]24 NoteHNO ID: [id number] Author: MAXIM ALFARO LPN Service: ? Author Type: LICENSED NURSE Type: Progress Notes Filed: 03/14/2024 14:42 Note Text: Pt has appointment with Dr Rossi 03/15/24 Scan on 03/12/2024 1:46 PM by ProviderGail PA-C: [facility] History of Present illness Narrative* Maxim Alfaro LPN - 03/14/2024 2:39 PM EST Pt has appointment with Dr Rossi 03/15/24 Scan on 03/12/2024 1:46 PM by Provider, Gail, PA-C: Consultation - Emergency Medicine documented in this encounterJ.W. [facility]11-01-2024 Note* Addendum Note - Noel Rossi MD - 03/04/2024 3:51 PM EDTAddended by: NOEL ROSSI on: 03/04/2024 03:51 PM Modules accepted: Orders [facility]11-01-2024 Miscellaneous Notes* Addendum Note - Noel Rossi MD - 03/04/2024 3:51 PM EDTAddended by: NOEL ROSSI on: 03/04/2024 03:51 PM Modules accepted: Orders documented in this encounterJ.W. [facility]11-01-2024 History of Present illness Narrative* Katie Duckworth MA - 03/04/2024 2:10 PM EDT Scan on 03/04/2024 10:24 AM by ProviderGail PA-C: Discharge Summary documented in this encounterJ.W. [facility]10-29-2024 History of Present illness Narrative* Rinku Mg MA - 03/01/2024 3:39 PM EDT Scan on 03/01/2024 1:58 PM by ProviderGail PA-C: Consultation - Emergency Medicine Patient already scheduled for her hospital follow up. 03/15/2024 Rinku Mg MA documented in this encounterJ.W. [facility]10-29-[facility] History of Present illness Narrative* Maxim Alfaro LPN - 03/01/2024 2:37 PM EDT Scan on 03/01/2024 2:20 PM by ProviderGail PA-C documented in this encounterJ.[facility]. [facility]10-29-2024 Instructions* Patient Instructions* Noel Rossi MD - 03/01/2024 9:48 AM EDT Screening schedule The following prevention plan is recommended: Depression Screening Never done Anxiety Screening Never done Bone Density Screening due on 08/02/2020 Advance Directive Discussion due on 05/04/2023 Covid-19 Vaccine() Never done WHAT YOU CAN DO TO PREVENT FALLS Many falls can be prevented. By making some changes, you can lower your chances of falling. Four things YOU can do to prevent falls for you* and your caregiver 1. Begin a regular exercise program Exercise is one of the most important ways to lower your chances of falling. It makes you stronger and helps you feel better. Exercises that improve balance and coordination (like Alessandro Chi) are the most helpful. Lack of exercise leads to weakness and increases your chances of falling. Ask your doctor or health care provider about the best type of exercise program for you. 2. Have your health care provider review your medicines Have your doctor or pharmacist review all the medicines you take, even [id number] medicines. As you get older, the way medicines work in your body can change. Some medicines, or combinations of medicines, can make you sleepy or dizzy andcan cause you to fall. 3. Have your vision checked Have your eyes checked by an eye doctor at least once a year. You may be wearing the wrong glasses or have a condition like glaucoma or cataracts that limits your vision. Poor vision can increase your chances of falling. 4. Make your home safer About half of all falls happen at home. To make your home safer: Remove things you can trip over (like papers, books, clothes, and shoes) from stairs and places where you walk. Remove small throw rugs or use double-sided tape to keep the rugs from slipping. Keep items you use often in cabinets you can reach easily without using a step stool. Have grab bars put in next to your toilet and in the tub or shower. Use non-slip mats in the bathtub and on shower floors. Improve the lighting in your home. As you get older, you need brighter lights to see well. Hang light-weight curtains or shades to reduce glare. Have handrails and lights put in on all staircases. Wear shoes both inside and outside the house. Avoid going barefoot or wearing slippers. For more information, contact: Centers for Disease Control and Prevention www.cdc.gov/injury * This information may not apply if you have certain medical conditions. documented in this encounterJ.W. [facility]10-29-[facility] History of Present illness Narrative* Noel Rossi MD - 03/01/2024 9:40 AM EDT Images from the original note were not included. Isis Maldonado is a 83 year old female here for a Medicare wellness visit. Medicare Health Risk Assessment General Health Good Exercise: Minutes/Day 30 min Exercise: Days/Week 2 days Alcohol: Daily Use Never Alcohol: Drinks/Day Patient does not drink Alcohol: 6 or more drinks Never Feel off balance Yes (Notices some at bedtime when getting up.) Concerns: Teeth/Dentures Yes Concerns: Sexual function Yes Troubled by feelings None of the above Frequency: Eating healthy diet Nearly every day ADLs requiring help None of the above Safety precautions in home/vehicle No Smoke, vape, chews tobacco No Difficulty hearing Yes, I wear a hearing aid Difficulty seeing No Current Providers Specialists: I have reviewed specialist-related care of the patient in the medical record. Current care team: Patient Care Team: Noel Rossi MD as PCP - General (Family Medicine) Medical/Family history review Reviewed and updated problem list, medical/surgical/family/social history, medications, and allergies. Opioid use review Opioid Medications (last 90 days) No data to display Anxiety/Depression screening PHQ-2 Score: 0 (Lower risk for depression) Recommendation: no further intervention at this time Cognitive screening Score: 5 Cognitive screening reviewed and No further action needed (score 3-5). Functional Observation Was the patient's Timed Up & Go test unsteady or >= 12 seconds? No Advance Care Planning Patient did not wish or was not able to name a surrogate decision maker or provide an advance care plan Measurements BP 132/82 Pulse 96 Resp 16 Ht 153.7 cm (5' 0.5) Wt 63 kg (139 lb) BMI 26.70 kg/m Vision Screening: Follows with optometry/ophthalmology Assessment/Plan Medicare annual wellness visit, subsequent (Z00.00) - Counseled on healthy diet and regular exercise - Fall avoidance information provided - Personalized prevention plan provided See Below Chief Complaint Patient presents with: Medicare Wellness Exam HPI Isis Maldonado is a 83 year old female who presents here today for Chronic Medical Conditions. and Medicare Annual Visit. Patient is here today with hx of HTN, CKD stage 3, Pancreatic cyst, elevated a1c, osteoporosis, coronary artery stenosis, aortic valve stenosis, BPPV and those as below. Patient sees Gastroenterology last visit 12/2023 Past medical history, appointments, medications, allergies reviewed. Previous Medical History PAST MEDICAL HISTORY Diagnosis Date Age-related osteoporosis without current pathological fracture 08/05/2018 Spine and R hip August 2018 Anesthesia complication 2018 She had issues with slow awakening after her colonoscopy 2 years ago where they used midazolam, fentanyl and Benadryl at the time. Aortic valvar stenosis 08/05/2018 Echo 08/02/18 Mild aortic valve stenosis and regurgitation. Bilateral carotid artery stenosis 08/05/2018 US 08/05/18 bilateral 20-39% Bilateral renal cysts 07/14/2018 MRI: 07/02/2017: benign BPV (benign positional vertigo) 07/14/2018 Delayed emergence from general anesthesia Elevated hemoglobin A1c 01/20/2019 Essential hypertension 07/14/2018 Heart murmur 07/14/2018 Known since she was 16 yo. Hyperlipidemia, mixed 02/25/2022 Pancreatic cyst 07/14/2018 Seen on MRI 07/02/2018, Pancreatic tail: 12 mm and 4 mm. Recommendation to repeat MRI in a year. Skin cancer screening 02/19/[address] Castañeda- Dermatology routinely for skin checks. Stage 3a chronic kidney disease (HCC) 01/30/2021 Previous Surgical History PAST SURGICAL HISTORY Procedure Laterality Date APPENDECTOMY 1952 COLONOSCOPY FLX DX W/COLLJ SPEC WHEN PFRMD 08/26/2018 Colonoscopy OOPHORECTOMY PARTIAL OR TOTAL 1966 one ovary removed due to a cyst. benign Family History FAMILY HISTORY Problem Relation Age of Onset Heart Mother congestive heart failure Stroke Father Cancer Sister on the neck, maybe lymphoma Coronary Artery Disease Sister 75 Hypertension Sister Prostate Cancer Brother 77 Coronary Artery Disease Brother 67 Stroke Brother Coronary Artery Disease Sister 70 Cancer Sister lymphoma Hypertension Sister Alzheimer's Disease No Family History Colon Cancer No Family History Breast Cancer No Family History Ovarian cancer No Family History Uterine Cancer No Family History Diabetes No Family History Hyperlipidemia No Family History Kidney Disease No Family History Seizures No Family History Thyroid No Family History Patient Allergies ALLERGIES No Known Allergies Current Medications Current Outpatient Medications on File Prior to Visit Medication Sig amLODIPine (NORVASC) 10 mg tablet Take 1 tablet by mouth once daily. hydroCHLOROthiazide 25 mg tablet Take 1 tablet by mouth once daily. lisinopril (ZESTRIL) 30 mg tablet Take 1 tablet by mouth two times a day. secretin, Human, (Wangdaizhijia) 16 mcg solr For MRI PANCREAS FUNCTION WO/W IVCON. Inject 0.2 mcg/kg/dose intravenously as directed. Slow push at the appropriate time during MRI POTASSIUM-99 ORAL Take by mouth. MAGNESIUM CHLORIDE ORAL Take by mouth. Eaqoj-[id number]-Fish Oil 1,200 (144-216) mg cap Take 2 capsules by mouth once daily. No current facility-administered medications on file prior to visit. Social History Social History Tobacco Use Smoking status: Never Smokeless tobacco: Never Vaping Use Vaping status: Never Used Substance Use Topics Alcohol use: Never Drug use: Never Review of Symptoms REVIEW OF SYSTEMS GENERAL: No significant weight loss, malaise or fevers HEENT: Negative for frequent or significant headaches, No changes in hearing or vision, no nose bleeds or other nasal problems. Getting halos around lights at night NECK: Negative for lumps, goiter, pain and significant neck swelling RESPIRATORY: Negative for cough, hemoptysis, wheezing, COPD, dyspnea or shortness of breath CARDIOVASCULAR: Negative for chest pain, leg swelling, hypertension, CHF or palpitations GI: No nausea, vomiting, or diarrhea, No heartburn or reflux symptoms, and no blood : No history of dysuria, frequency or blood. MUSCULOSKELETAL: Negative for joint pain or swelling, back pain or muscle pain SKIN: seeing Derm PSYCH: Negative for sleep disturbance, mood disorder and recent psychosocial stressors HEMATOLOGY/LYMPHOLOGY: Negative for prolonged bleeding, bruising easily or swollen nodes ENDOCRINE: Negative for cold or heat intolerance, polyuria, polydipsia and goiter NEURO: No history of headaches, syncope, paralysis, seizures or tremors EXAM: BP 132/82 Pulse 96 Resp 16 Ht 153.7 cm (5' 0.5) Wt 63 kg (139 lb) BMI 26.70 kg/m Last 5 Encounter Wt Readings: Date: Wt: 03/01/2024 63 kg (139 lb) 02/25/2023 64 kg (141 lb) 12/12/2022 65.3 kg (144 lb) 02/19/2022 64.4 kg (142 lb) 01/30/2021 63.5 kg (140 lb) General Appearance: Well appearing, alert, in no acute distress, well-hydrated, well nourished.. Skin: seeing Derm. Head: Normocephalic, no masses, lesions, tenderness or abnormalities. Eyes: Anicteric sclera. Pupils are equally round and reactive to light. Extraocular movements are intact. . Ears: External ears normal, canals with wax bilaterally. Bazan a small portion of the left TM and was normal. Nose/Sinuses: Nares normal, septum midline, mucosa normal, no drainage or sinus tenderness. Oropharynx: Lips, mucosa, and tongue normal, teeth and gums normal, oropharynx normal. Neck: Supple, no adenopathy; thyroid symmetric, normal size, no bruits. Lungs: Lungs clear to auscultation. No wheezing, rhonchi, rales.. Heart: Negative findings: S1 normal, S2 normal, no rubs, clicks or gallops, Positive findings: tachycardia, irregular rhythm, murmur: 2/6 systolic harsh harsh murmur , Abdomen: Normal abdominal exam, Abdomen soft, non-tender. Bowel sounds normal. No masses, organomegaly. Extremities: No deformities, edema, skin discoloration, Good capillary refill. . Musculoskeletal: Muscular strength intact, No joint swelling, deformity, or tenderness. Peripheral Pulses: Normal. Neurologic: Gait normal. Reflexes normal and symmetric. Sensation to light touch and crainal nerves2-12 intact.. Health Maintenance List Depression Screening Never done Anxiety Screening Never done Bone Density Screening due on 08/02/2020 Advance Directive Discussion due on 05/04/2023 Covid-19 Vaccine( season) Never done Diabetes Screening due on 02/22/2027 DTaP,Tdap,Td Vaccine Discontinued Influenza Vaccine Discontinued Colorectal Cancer Screening Discontinued RSV Vaccine Discontinued Shingrix Vaccine Discontinued Pneumococcal Vaccine: 65+ Discontinued Data reviewed Latest Ref Rn 01/07/2023 02/23/2024 WBC 3.70 - 11.00 k/uL 10.51 7.96 RBC 3.90 - 5.20 m/uL 4.39 4.15 Hemoglobin 11.5 - 15.5 g/dL 14.6 13.7 Hematocrit 36.0 - 46.0 % 43.4 41.6 MCV 80.0 - 100.0 fL 98.9 100.2 (H) MCH 26.0 - 34.0 pg 33.3 33.0 MCHC 30.5 - 36.0 g/dL 33.6 32.9 RDW-CV 11.5 - 15.0 % 13.1 13.2 Platelet Count 150 - 400 k/uL 247 227 MPV 9.0 - 12.7 fL 11.6 11.4 Neut% % 60.9 53.4 Abs Neut (ANC) 1.45 - 7.50 k/uL 6.41 4.26 Lymph% % 31.6 38.8 Abs Lymph 1.00 - 4.00 k/uL 3.32 3.09 [place]% % 5.8 5.8 Abs [place] <0.87 k/uL 0.61 0.46 Eosin% % 0.6 0.9 Abs Eosin <0.46 k/uL 0.06 0.07 Baso% % 0.6 0.8 Abs Baso <0.11 k/uL 0.06 0.06 Immature Gran % % 0.5 0.3 IMMATURE GRANS (ABS) <0.10 k/uL 0.05 <0.03 NRBC /100 WBC 0.0 0.0 Absolute nRBC <0.01 k/uL <0.01 <0.01 DTYPE Auto Auto Protein, Total 6.3 - 8.0 g/dL 7.8 7.6 Albumin 3.9 - 4.9 g/dL 4.4 4.3 Calcium 8.5 - 10.2 mg/dL 10.0 10.0 Bilirubin, Total 0.2 - 1.3 mg/dL 0.5 0.5 Alkaline Phosphatase 34 - 123 U/L 94 100 AST 13 - 35 U/L 26 20 ALT 7 - 38 U/L 17 15 Glucose 74 - 99 mg/dL 98 97 BUN 7 - 21 mg/dL 26 (H) 21 Creatinine 0.58 - 0.96 mg/dL 1.07 (H) 1.09 (H) Sodium 136 - 144 mmol/L 140 141 Potassium 3.7 - 5.1 mmol/L 4.6 4.1 Chloride 98 - 107 mmol/L 104 103 CO2 22 - 30 mmol/L 22 24 Anion Gap 8 - 15 mmol/L 14 14 eGFR >=60 mL/min/1.73m 52 (L) 51 (L) Total Cholesterol, Nonfasting <200 mg/dL 240 (H) 224 (H) Triglycerides, Nonfasting <150 mg/dL 323 (H) 242 (H) HDL Cholesterol, Nonfasting >39 mg/dL 48 51 LDL Cholesterol, Nonfasting <100 mg/dL 127 (H) 125 (H) Non HDL Cholesterol, Nonfasting <130 mg/dL 192 (H) 173 (H) VLDL Cholesterol, Nonfasting <30 mg/dL 65 (H) 48 (H) Total Chol/HDL Ratio, Nonfasting <5.10 mg/dL 5.00 4.39 LDL/HDL Ratio, Nonfasting <2.54 mg/dL 2.65 (H) 2.45 Hemoglobin A1C 4.3 - 5.6 % 5.8 (H) 5.7 (H) Estimated Average Glucose mg/dL 120 117 In office EKG: showed new onset A. Fib with RVR at a rate of 158 bpm. There does not appear to be any ST or T wave changes. A/P ASSESSMENT/PLAN: 1. Medicare annual wellness visit, subsequent - ICD9: V70.0, ICD10: Z00.00 (primary diagnosis) - Counseled on healthy diet and regular exercise - Follow up for annual exam in one year 2. Essential hypertension - ICD9: 401.9, ICD10: I10 - Controlled - Continue current medications - Recommend home blood pressure monitoring, to bring results to next visit - Encouraged sodium restriction, DASH or Mediterranean diet - Recommend regular aerobic exercise - ECG COMPLETE 3. Hyperlipidemia, mixed - ICD9: 272.2, ICD10: E78.2 - Controlled - Counseled on healthy diet and regular exercise 4. Elevated hemoglobin A1c - ICD9: 790.29, ICD10: R73.09 - controlled with diet. 5. Stage 3a chronic kidney disease (HCC) - ICD9: 585.3, ICD10: N18.31 - eGFR: 51 Stable - Counseled on avoiding NSAIDs, adequate hydration - ACEi/ARB prescribed: Yes 6. Bilateral carotid artery stenosis - ICD9: 433.10, 433.30, ICD10: I65.23 Check - US CAROTID ARTERIES [facility], will order at f/u appt. 7. Aortic valve stenosis, etiology of cardiac valve disease unspecified - ICD9: 424.1, ICD10: I35.0 Check - ECHO - PERFLUTREN LIPID MICROSPHERES 1.1 MG/ML INJECTION IN NS 10 ML - SODIUM CHLORIDE 0.9 % (FLUSH) INJECTION SYRINGE Will see if still needs after hospital stay 8. Cardiac arrhythmia, unspecified cardiac arrhythmia type - ICD9: 427.9, ICD10: I49.9 - see below - ECG COMPLETE 9. Atrial fibrillation, unspecified type (HCC) - ICD9: 427.31, ICD10: I48.91 - new onset and in AVR. Patient asymptomatic. - discussed with patient and daughter and patient will be sent to [facility] ER 10. Skin cancer screening - ICD9: V76.43, ICD10: Z12.83 - sees Derm 11. Age-related osteoporosis without current pathological fracture - ICD9: 733.01, ICD10: M81.0 - Reviewed the need for Calcium and Vitamin D supplements and weight bearing exercise as tolerated 12. Bilateral impacted cerumen - ICD9: 380.4, ICD10: H61.23 - Discussed irrigation with wam water. Verbal consent provided. Both ears were irrigated with warm water for the removal of wax per nursing. Patient tolerated well. 13. Advanced care planning/counseling discussion - ICD9: V65.49, ICD10: Z71.89 - patient has packets 14. Encounter for screening examination for other mental health and behavioral disorders - ICD9: V79.8, ICD10: Z13.39 - ANXIETY SCREENING 15. Screening for depression - ICD9: V79.0, ICD10: Z13.31 - DEPRESSION SCREENING F/u in 10-14 days for hospital I spent a total of 40 minutes on the date of the service which included preparing to see the patient, [id number] patient care, completing clinical documentation, performing a medically appropriate examination, counseling and educating the patient/family/caregiver and ordering medications, tests, or procedures. Noel Rossi MD documented in this encounterJ[facility]10-[facility] Telephone encounter Note * Telephone Encounter - Maxim Alfaro LPN - 02/04/2024 2:23 PM EDT Pt advised of pcp's message. Pt was wanting to change her appointment to a Thursday as that would work better for her. Appointment has been rescheduled and pt will complete labs prior. Maxim Alfaro LPN [facility]10-03-2024 Miscellaneous Notes* Telephone Encounter - Maxim Alfaro LPN - 02/04/2024 2:23 PM EDT Pt advised of pcp's message. Pt was wanting to change her appointment to a Thursday as that would work better for her. Appointment has been rescheduled and pt will complete labs prior. Maxim Alfaro LPN * Telephone Encounter - Noel Rossi MD - 02/04/2024 1:51 PM EDT Patient's appt time needs changed as noted in chart. I'm not here in the AM. There is two PCP flex spots in the afternoon she could be moved to. Orders placed. * Telephone Encounter - Adelita Wilson LPN - 02/04/2024 10:57 AM EDT Pt has an apt on 02-29-24 and asking if you want lab work done. Orders Pended. Please advise pt. Adelita Wilson LPN documented in this encounterJ.W. [facility]10-[facility] Telephone encounter Note * Telephone Encounter - Noel Rossi MD - 02/04/2024 1:51 PM EDT Patient's appt time needs changed as noted in chart. I'm not here in the AM. There is two PCP flex spots in the afternoon she could be moved to. Orders placed. [facility] Telephone encounter Note* Telephone Encounter - Adelita Wilson LPN - 02/04/2024 10:57 AM EDT Pt has an apt on 02-29-24 and asking if you want lab work done. Orders Pended. Please advise pt. Adelita Wilson LPN Health09-13-2024 Telephone encounter Note* Telephone Encounter - Tiffanie Natarajan LPN - 01/15/2024 8:11 AM EDT Prescription Refill Information The patient has been identified by name and date of : Yes Caregiver verified no other encounters exist for this prescription request: Yes Caregiver confirmed with patient/requestor that no other refills are due, in the near future, with this provider at this time: Yes The last office visit in the department: 02/25/23 Does the patient have a future office visit with this provider/department: Yes Requested Prescriptions Pending Prescriptions Disp Refills amLODIPine (NORVASC) 10 mg tablet 90 tablet 1 Sig: Take 1 tablet by mouth once daily. hydroCHLOROthiazide 25 mg tablet 90 tablet 1 Sig: Take 1 tablet by mouth once daily. lisinopril (ZESTRIL) 30 mg tablet 180 tablet 1 Sig: Take 1 tablet by mouth two times a day. Tiffanie Natarajan LPN January 15, 2024 8:12 AM Health09-13-2024 Miscellaneous Notes* Telephone Encounter - Tiffanie Natarajan LPN - 01/15/2024 8:11 AM EDT Prescription Refill Information The patient has been identified by name and date of : Yes Caregiver verified no other encounters exist for this prescription request: Yes Caregiver confirmed with patient/requestor that no other refills are due, in the near future, with this provider at this time: Yes The last office visit in the department: 02/25/23 Does the patient have a future office visit with this provider/department: Yes Requested Prescriptions Pending Prescriptions Disp Refills amLODIPine (NORVASC) 10 mg tablet 90 tablet 1 Sig: Take 1 tablet by mouth once daily. hydroCHLOROthiazide 25 mg tablet 90 tablet 1 Sig: Take 1 tablet by mouth once daily. lisinopril (ZESTRIL) 30 mg tablet 180 tablet 1 Sig: Take 1 tablet by mouth two times a day. Tiffanie Natarajan LPN January 15, 2024 8:12 AM documented in this encounterJ.W. [facility]04-16-2024 Miscellaneous Notes* Telephone Encounter - Young Soria - 08/18/2023 3:32 PM EDT Per prev notes- called pt explan that Dr. Aly has tried to contact her several times to scheduled appt or I can get her scheduled in [place]. Pt states will call Dr. Pandey office today Young Soria * Telephone Encounter - April Soler RN - 08/17/2023 4:40 PM EDT 2nd attempt to contact patient and no answer. VM box is full. April Soler RN * Telephone Encounter - April Soler RN - 08/14/2023 3:23 PM EDT Attempted to contact patient and no answer. VM box is full. Try contacting pt again. [phone] Thank you. * Telephone Encounter - Kimmie Heath PA-C - 08/14/2023 2:00 PM EDT Please let the patient know that she is due for a colonoscopy, which is why she received the letterfrom Dr Aly's office. She can contact them and have it there, or we could get her scheduled in [place] if she prefers. * Telephone Encounter - April Soler RN - 08/14/2023 8:34 AM EDT Patient calling PCP office to state she received a letter from [facility] stating she needs to make an appointment with Dr. Shanice Aly. Patient does not know why she received this letter. No note observed in pt's record about this. Informed patient that a message would be sent to Gastroenterology for further clarification. Please call patient with reply. Thank you. April Soler RN documented in this encounterJ.W. [facility]04-03-2024 Miscellaneous Notes* Telephone Encounter - Young Soria - 08/05/2023 2:15 PM EDT Called pt scheduled [place]2023 [place] * Telephone Encounter - Kimmie Heath PA-C - 08/03/2023 11:05 AM EDT This patient needs scheduled for an MRCP to check on her pancreatic cyst documented in this encounterJ.W. [facility]03-04-2024 Miscellaneous Notes* Telephone Encounter - Noel Rossi MD - 07/06/2023 12:49 PM EST The following approved medication requests have been transmitted electronically. Requested Prescriptions Signed Prescriptions Disp Refills meclizine (ANTIVERT) 25 mg tab 30 tablet 0 Sig: Take 1 tablet by mouth three times a day. Authorizing Provider: NOEL ROSSI MD * Telephone Encounter - [place] Winnie Coronel - 07/06/2023 9:06 AM EST Ada is calling Noel Rossi MD today to request medication, not on her current list. 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 Sent to pharmacy as: meclizine (ANTIVERT) 25 mg tab Class: Normal Route: ORAL Order: [id number] E-Prescribing Status: Receipt confirmed by pharmacy (02/25/2023 10:21 AM EDT) Please call patient once sent. Patient has been identified by name and birthdate. Duration of symptoms: N/A Person calling: self Call patient at: on cell [phone] (home) Was an appointment scheduled: No Closing statement: Results or non-symptom based questions: Thank you for calling [facility], your call will be returned within the next business day. Winnie Gill Pss documented in this encounterJ.W. [facility]10-25-2023 History of Present illness Narrative* Noel Rossi MD - 02/25/2023 9:20 AM EDT Medicare Yearly Visit Medical B eligibilty date n/a Date of last exam 02/19/22 PAST MEDICAL HISTORY PAST MEDICAL HISTORY Diagnosis Date Age-related osteoporosis without current pathological fracture 08/05/2018 Spine and R hip August 2018 Anesthesia complication 2018 She had issues with slow awakening after her colonoscopy 2 years ago where they used midazolam, fentanyl and Benadryl at the time. Aortic valvar stenosis 08/05/2018 Echo 08/02/18 Mild aortic valve stenosis and regurgitation. Bilateral carotid artery stenosis 08/05/2018 US 08/05/18 bilateral 20-39% Bilateral renal cysts 07/14/2018 MRI: 07/02/2017: benign BPV (benign positional vertigo) 07/14/2018 Delayed emergence from general anesthesia Elevated hemoglobin A1c 01/20/2019 Essential hypertension 07/14/2018 Heart murmur 07/14/2018 Known since she was 16 yo. Pancreatic cyst 07/14/2018 Seen on MRI 07/02/2018, Pancreatic tail: 12 mm and 4 mm. Recommendation to repeat MRI in a year. Stage 3a chronic kidney disease (HCC) 01/30/2021 PAST SURGICAL HISTORY PAST SURGICAL HISTORY Procedure Laterality Date APPENDECTOMY 1952 COLONOSCOPY FLX DX W/COLLJ SPEC WHEN PFRMD 08/26/2018 Colonoscopy OOPHORECTOMY PARTIAL OR TOTAL 1966 one ovary removed due to a cyst. benign ALLERGIES: Patient has no known allergies. Medications reviewed: Yes FAMILY HISTORY FAMILY HISTORY Problem Relation Age of Onset Heart Mother congestive heart failure Stroke Father Cancer Sister on the neck, maybe lymphoma Coronary Artery Disease Sister 75 Hypertension Sister Prostate Cancer Brother 77 Coronary Artery Disease Brother 67 Stroke Brother Coronary Artery Disease Sister 70 Cancer Sister lymphoma Hypertension Sister Alzheimer's Disease No Family History Colon Cancer No Family History Breast Cancer No Family History Ovarian cancer No Family History Uterine Cancer No Family History Diabetes No Family History Hyperlipidemia No Family History Kidney Disease No Family History Seizures No Family History Thyroid No Family History SOCIAL HISTORY: SOCIAL HISTORY Social History Tobacco Use Smoking status: Never Smokeless tobacco: Never Vaping Use Vaping Use: Never used Substance Use Topics Alcohol use: Never Drug use: Never Ada likes to exercise by housework, yardwork, and walks. She watches her diet for sodium, low fat and low cholesterol most of the time. List of current specialists seen: Dermatology [facility] Planning discussed including patients advanced directive wishes: Yes I am willing to follow Ada's advanced directives. Depression Screening PHQ-2 Score 02/25/2023 0 Depression screening tool completed and reviewed. Based on score and interview, patient is not at risk for depression. Screening tool discussed with patient, and I recommended no further interventionat this time. Functional Ability/Safety Screen 1. Was the patient's timed Up and Go test unsteady or longer than 30 seconds? No 2. Does the patient need help with the phone, transportation, shopping,preparing meals, housework, laundry, medications or managing money? No 3. Does your home have rugs in the hallway, lack of grab bars in the bathroom (Y), lack of handrails on the stairs or have poor lighting? No Hearing Evaluation: hard of hearing and wears hearing aids PHYSICAL EXAM BP 164/86 (BP Site: Left Arm, BP Position: Sitting, BP Cuff Size: Regular Adult) Pulse 90 Resp 16 Ht 154.3 cm (5' 0.75) Wt 64 kg (141 lb) BMI 26.86 kg/m Alert and oriented X 3: YES Body mass index is 26.86 kg/m . Visual acuity: sees opto ASSESSMENT/PLAN: 82 year old female The following prevention plan was discussed during the office visit and provided to the patient: See below Chief Complaint Patient presents with: Physical HPI Ada Samaria Maldonado is a 82 year old female who presents here today for Physical. Patient is here today with hx of HTN, CKD stage 3, Pancreatic cyst, elevated a1c, osteoporosis, coronary artery stenosis, aortic valve stenosis, BPPV and those as below. Patient states she is currently seeing Derm for tx of precancerous lesions on face. She did get a new BP cuff and home readings are in 120s/70 on average. Blood pressure readings at home are good. No concerns today. Patient saw Dr. Holliday [facility] for Pancreatic cyst last visit 12/12/2022. Past medical history, appointments, medications, allergies reviewed. Previous Medical History PAST MEDICAL HISTORY Diagnosis Date Age-related osteoporosis without current pathological fracture 08/05/2018 Spine and R hip August 2018 Anesthesia complication 2018 She had issues with slow awakening after her colonoscopy 2 years ago where they used midazolam, fentanyl and Benadryl at the time. Aortic valvar stenosis 08/05/2018 Echo 08/02/18 Mild aortic valve stenosis and regurgitation. Bilateral carotid artery stenosis 08/05/2018 US 08/05/18 bilateral 20-39% Bilateral renal cysts 07/14/2018 MRI: 07/02/2017: benign BPV (benign positional vertigo) 07/14/2018 Delayed emergence from general anesthesia Elevated hemoglobin A1c 01/20/2019 Essential hypertension 07/14/2018 Heart murmur 07/14/2018 Known since she was 16 yo. Pancreatic cyst 07/14/2018 Seen on MRI 07/02/2018, Pancreatic tail: 12 mm and 4 mm. Recommendation to repeat MRI in a year. Stage 3a chronic kidney disease (HCC) 01/30/2021 Previous Surgical History PAST SURGICAL HISTORY Procedure Laterality Date APPENDECTOMY 1952 COLONOSCOPY FLX DX W/COLLJ SPEC WHEN PFRMD 08/26/2018 Colonoscopy OOPHORECTOMY PARTIAL OR TOTAL 1966 one ovary removed due to a cyst. benign Family History FAMILY HISTORY Problem Relation Age of Onset Heart Mother congestive heart failure Stroke Father Cancer Sister on the neck, maybe lymphoma Coronary Artery Disease Sister 75 Hypertension Sister Prostate Cancer Brother 77 Coronary Artery Disease Brother 67 Stroke Brother Coronary Artery Disease Sister 71 Cancer Sister lymphoma Hypertension Sister Alzheimer's Disease No Family History Colon Cancer No Family History Breast Cancer No Family History Ovarian cancer No Family History Uterine Cancer No Family History Diabetes No Family History Hyperlipidemia No Family History Kidney Disease No Family History Seizures No Family History Thyroid No Family History Patient Allergies ALLERGIES No Known Allergies Current Medications Current Outpatient Medications on File Prior to Visit Medication Sig lisinopril (ZESTRIL) 30 mg tablet Take 1 tablet by mouth twice daily. amLODIPine (NORVASC) 10 mg tablet Take 1 tablet by mouth once daily. hydroCHLOROthiazide 25 mg tablet Take 1 tablet by mouth once daily. secretin, Human, (Wangdaizhijia) 16 mcg solr For MRI PANCREAS FUNCTION WO/W IVCON. Inject 0.2 mcg/kg/dose intravenously as directed. Slow push at the appropriate time during MRI POTASSIUM-99 ORAL Take by mouth. MAGNESIUM CHLORIDE ORAL Take by mouth. aspirin, enteric coated (ASPIRIN, ENTERIC COATED) 81 mg EC tablet Take 1 tablet by mouth once daily. (Patient not taking: Reported on 12/12/2022) Irhbw-1-XNG-EPA-Fish Oil 1,200 (144-216) mg cap Take 2 capsules by mouth once daily. No current facility-administered medications on file prior to visit. Social History Social History Tobacco Use Smoking status: Never Smokeless tobacco: Never Vaping Use Vaping Use: Never used Substance Use Topics Alcohol use: Never Drug use: Never Review of Symptoms REVIEW OF SYSTEMS GENERAL: No weight loss, malaise or fevers HEENT: Negative for frequent or significant headaches, No changes in hearing or vision, no nose bleeds or other nasal problems NECK: Negative for lumps, goiter, pain and significant neck swelling RESPIRATORY: Negative for cough, hemoptysis, wheezing, COPD, dyspnea or shortness of breath CARDIOVASCULAR: Negative for chest pain, leg swelling, hypertension, CHF or palpitations GI: No nausea, vomiting, or diarrhea, No heartburn or reflux symptoms, and no blood : No history of dysuria, frequency or blood MUSCULOSKELETAL: Negative for joint pain or swelling, back pain or muscle pain SKIN: seeing Derm PSYCH: Negative for sleep disturbance, mood disorder and recent psychosocial stressors HEMATOLOGY/LYMPHOLOGY: Negative for prolonged bleeding, bruising easily or swollen nodes ENDOCRINE: Negative for cold or heat intolerance, polyuria, polydipsia and goiter NEURO: No history of headaches, syncope, paralysis, seizures or tremors EXAM: BP 126/64 Pulse 90 Resp 16 Ht 154.3 cm (5' 0.75) Wt 64 kg (141 lb) BMI 26.86 kg/m Last 5 Encounter Wt Readings: Date: Wt: 02/25/2023 64 kg (141 lb) 12/12/2022 65.3 kg (144 lb) 02/19/2022 64.4 kg (142 lb) 01/30/2021 63.5 kg (140 lb) 01/22/2021 65.1 kg (143 lb 9.6 oz) General Appearance: Well appearing, alert, in no acute distress, well-hydrated, well nourished. andOverweight. Head: Normocephalic, no masses, lesions, tenderness or abnormalities. Eyes: Anicteric sclera. Pupils are equally round and reactive to light. Extraocular movements are intact. . Ears: External ears, TM's normal, canals clear. Nose/Sinuses: Nares normal, septum midline, mucosa normal, no drainage or sinus tenderness. Oropharynx: Lips, mucosa, and tongue normal, teeth and gums normal, oropharynx normal. Neck: Supple, no adenopathy; thyroid symmetric, normal size, no bruits. Lungs: Lungs clear to auscultation. No wheezing, rhonchi, rales.. Heart: RRR without murmur, gallop, or rubs. No ectopy. Abdomen: Normal abdominal exam, Abdomen soft, non-tender. Bowel sounds normal. No masses, organomegaly. Extremities: No deformities, edema, skin discoloration, Good capillary refill. . Musculoskeletal: Muscular strength intact, No joint swelling, deformity, or tenderness. Peripheral Pulses: Normal. Neurologic: Gait normal. Reflexes normal and symmetric. Sensation to light touch and crainal nerves2-12 intact.. Health Maintenance List Covid-19 Vaccine(1) Never done RSV Vaccine(1 - 1-dose 60+ series) Never done Advance Directive Discussion due on 05/04/2022 Depression Assessment due on 05/04/2022 Diabetes Screening due on 01/07/2026 Bone Density Screening Completed DTaP,Tdap,Td Vaccine Discontinued Influenza Vaccine Discontinued Colorectal Cancer Screening Discontinued Shingrix Vaccine Discontinued Pneumococcal Vaccine: 65+ Discontinued Data reviewed Component Latest Ref Rng & Units 02/19/2022 01/07/2023 WBC 3.70 - 11.00 k/uL 9.85 10.51 RBC 3.90 - 5.20 m/uL 4.45 4.39 Hemoglobin 11.5 - 15.5 g/dL 14.6 14.6 Hematocrit 36.0 - 46.0 % 44.6 43.4 MCV 80.0 - 100.0 fL 100.2 (H) 98.9 MCH 26.0 - 34.0 pg 32.8 33.3 MCHC 30.5 - 36.0 g/dL 32.7 33.6 RDW-CV 11.5 - 15.0 % 13.0 13.1 Platelet Count 150 - 400 k/uL 235 247 MPV 9.0 - 12.7 fL 11.5 11.6 Neut% % 51.5 60.9 Abs Neut (ANC) 1.45 - 7.50 k/uL 5.07 6.41 Lymph% % 42.3 31.6 Abs Lymph 1.00 - 4.00 k/uL 4.17 (H) 3.32 [place]% % 4.1 5.8 Abs [place] <0.87 k/uL 0.40 0.61 Eosin% % 1.1 0.6 Abs Eosin <0.46 k/uL 0.11 0.06 Baso% % 0.7 0.6 Abs Baso <0.11 k/uL 0.07 0.06 Immature Gran % % 0.3 0.5 IMMATURE GRANS (ABS) <0.10 k/uL 0.03 0.05 NRBC /100 WBC 0.0 0.0 Absolute nRBC <0.01 k/uL <0.01 <0.01 DTYPE Auto Auto Protein, Total 6.3 - 8.0 g/dL 8.0 7.8 Albumin 3.9 - 4.9 g/dL 4.8 4.4 Calcium 8.5 - 10.2 mg/dL 10.4 (H) 10.0 Bilirubin, Total 0.2 - 1.3 mg/dL 0.4 0.5 Alkaline Phosphatase 34 - 123 U/L 90 94 AST 13 - 35 U/L 23 26 ALT 7 - 38 U/L 15 17 Glucose 74 - 99 mg/dL 102 (H) 98 BUN 7 - 21 mg/dL 23 (H) 26 (H) Creatinine 0.58 - 0.96 mg/dL 1.09 (H) 1.07 (H) Sodium 136 - 144 mmol/L 138 140 Potassium 3.7 - 5.1 mmol/L 4.4 4.6 Chloride 97 - 105 mmol/L 102 104 CO2 22 - 30 mmol/L 26 22 Anion Gap 9 - 18 mmol/L 10 14 eGFR >=60 mL/min/1.73m 51 (L) 52 (L) Color Yellow Light Yellow Clarity Clear Clear Glucose, Urine Trace, Negative Negative Bilirubin, Urine Negative Negative Ketones, Urine Trace, Negative Negative Specific Hum[place], Ur 1.005 - 1.030 1.014 Hemoglobin/Blood,Ur Negative, Trace Negative pH, Urine 5.0 - 8.0 6.0 Protein, Urine Trace, Negative Trace Urobilinogen Negative Negative Nitrites Negative Negative Leukest Negative, 25 Sarah/uL Negative WBC, Urine 0-5 /HPF 0-5 /HPF RBC, Urine 0-3 /HPF 0-3 /HPF Epithelial Cells /HPF Few Total Cholesterol, Nonfasting <200 mg/dL 260 (H) 240 (H) Triglycerides, Nonfasting <150 mg/dL 227 (H) 323 (H) HDL Cholesterol, Nonfasting >39 mg/dL 60 48 LDL Cholesterol, Nonfasting <100 mg/dL 155 (H) 127 (H) Non HDL Cholesterol, Nonfasting <130 mg/dL 200 (H) 192 (H) VLDL Cholesterol, Nonfasting <30 mg/dL 45 (H) 65 (H) Total Chol/HDL Ratio, Nonfasting <5.10 mg/dL 4.33 5.00 LDL/HDL Ratio, Nonfasting <2.54 mg/dL 2.58 (H) 2.65 (H) Hemoglobin A1C 4.3 - 5.6 % 5.9 (H) 5.8 (H) Estimated Average Glucose mg/dL 123 120 A/P ASSESSMENT/PLAN: 1. Medicare annual wellness visit, subsequent - ICD9: V70.0, ICD10: Z00.00 (primary diagnosis) - Counseled on healthy diet and regular exercise - Calcium intake with supplements or by diet of 1000 mg/day for under 50, 1200- 1500 mg/day for 50+ - Follow up for annual exam in one year 2. Essential hypertension - ICD9: 401.9, ICD10: I10 - Controlled - Continue current medications - Recommend home blood pressure monitoring, to bring results to next visit - Encouraged sodium restriction, DASH or Mediterranean diet - Recommend regular aerobic exercise 3. Hyperlipidemia, mixed - ICD9: 272.2, ICD10: E78.2 - Controlled - Continue current medications - Counseled on healthy diet and regular exercise 4. Elevated hemoglobin A1c - ICD9: 790.29, ICD10: R73.09 - improved with life style changes. 5. Bilateral carotid artery stenosis - ICD9: 433.10, 433.30, ICD10: I65.23 - stable no changes. - will check US in a year 6. Aortic valve stenosis, etiology of cardiac valve disease unspecified - ICD9: 424.1, ICD10: I35.0 - stable no changes. - check 2D echo in a year 7. Pancreatic cyst - ICD9: 577.2, ICD10: K86.2 - management per gastro 8. Stage 3a chronic kidney disease (HCC) - ICD9: 585.3, ICD10: N18.31 - improved. Discussed avoiding NSAID's and hydration. 9. Dizziness - ICD9: 780.4, ICD10: R42 Cont prn - MECLIZINE 25 MG TABLET 10. Tinnitus of left ear - ICD9: 388.30, ICD10: H93.12 Cont - MECLIZINE 25 MG TABLET 11. Advanced care planning/counseling discussion - ICD9: V65.49, ICD10: Z71.89 - has packets to complete Requested Prescriptions Signed Prescriptions Disp Refills lisinopril (ZESTRIL) 30 mg tablet 180 tablet 1 Sig: Take 1 tablet by mouth two times a day. meclizine (ANTIVERT) 25 mg tab 15 tablet 0 Sig: Take 1 tablet by mouth three times a day for 5 days. amLODIPine (NORVASC) 10 mg tablet 90 tablet 1 Sig: Take 1 tablet by mouth once daily. hydroCHLOROthiazide 25 mg tablet 90 tablet 1 Sig: Take 1 tablet by mouth once daily. F/u in a year extensive. I spent a total of 40 minutes on the date of the service which included preparing to see the patient, [id number] patient care, completing clinical documentation, performing a medically appropriate examination, counseling and educating the patient/family/caregiver and ordering medications, tests, or procedures. Patient was asked at end of visit if they had any questions or input regarding the plan of care we had discussed. Noel Rossi MD documented in this encounterJ.W. [facility]08-31-[facility]23 Miscellaneous Notes* Telephone Encounter - Mindy Pruitt Ma - 01/01/2023 2:10 PM EDT Last office visit: 02/19/22 F/u scheduled: 02/25/23 Mindy Pruitt Ma * Telephone Encounter - April Min - 01/01/2023 1:13 PM EDT Patient is calling in requesting the attached mediations please. documented in this encounterJ.W. [facility]08-11-2023 NoteHNO ID: [id number] Author: Noel Holliday MD Service: ? Author Type: Physician Type: Progress Notes Filed: 12/12/2022 9:12 AM Note Text: HPI: Isis Maldonado is a 82 year old female who presents for follow up of Follow Up. Pt is here for a f/up as she has seen Dr. Dunham in the past. I reviewed his last note. Pt denies complaints, no pain, wt loss, n/v. She never did have HP stool test. Her last MR in September which shows stability and no concerning features of panc cysts, largest of 1.2 cm. Current Outpatient Medications Medication Sig lisinopril (ZESTRIL,PRINIVIL) 30 mg tablet Take 1 tablet by mouth twice daily. amLODIPine (NORVASC) 10 mg tablet Take 1 tablet by mouth once daily. hydroCHLOROthiazide (HYDRODIURIL, ESIDRIX) 25 mg tablet Take 1 tablet by mouth once daily. secretin, Human, (CHIROSTIM) 16 mcg solr For MRI PANCREAS FUNCTION WO/W IVCON. Inject 0.2 mcg/kg/dose intravenously as directed. Slow push at the appropriate time during MRI POTASSIUM-99 ORAL Take by mouth. MAGNESIUM CHLORIDE ORAL Take by mouth. Mbqol-8-RHA-EPA-Fish Oil 1,200 (144-216) mg cap Take 2 capsules by mouth once daily. aspirin, enteric coated (ASPIRIN, ENTERIC COATED) 81 mg EC tablet Take 1 tablet by mouth once daily. (Patient not taking: Reported on 12/12/2022) No current facility-administered medications for this visit. ALLERGIES No Known Allergies REVIEW OF SYSTEMS: GENERAL: No weight loss, malaise or fevers. HEENT: Negative for frequent or significant headaches, No changes in hearing or vision, no nose bleeds or other nasal problems. NECK: Negative for lumps, goiter, pain and significant neck swelling. RESPIRATORY: Negative for cough, hemoptysis, wheezing or shortness of breath CARDIOVASCULAR: Negative for chest pain, leg swelling or palpitations GI: See HPI : No history of dysuria, frequency or incontinence MUSCULOSKELETAL: Negative for joint pain or swelling, back pain or muscle pain. SKIN: Negative for lesions, rash, and itching PSYCH: Negative for sleep disturbance, mood disorder and recent psychosocial stressors NEURO: No history of headaches, syncope, paralysis, seizures or tremors PHYSICAL EXAMINATION: BP 149/77 Pulse 92 Ht 5' 1 (1.55m) Wt 144 lb (65.3kg) BMI 27.22 kg/(m2). GENERAL APPEARANCE: Well appearing, alert, in no acute distress, well-hydrated, well nourished. EYES: No icterus ABDOMEN: Normal, soft, non-tender, no masses or organomegaly. ASSESSMENT AND PLAN: ASSESSMENT/PLAN: 1. Pancreatic cyst - ICD9: 577.2, ICD10: K86.2 (primary diagnosis) - pt not sure she wants another MRI in future. Cysts have been stable since 2019. - can f/up in 1 yr. 2. H. pylori infection - ICD9: 041.86, ICD10: A04.8 - H PYLORI AG BY EIA,STOOL Noel Holliday, [facility]05-16-2023 NoteHNO ID: [id number] Author: Chantel Maza RT(R) Service: Radiology Author Type: Technologist Type: Progress Notes Filed: 09/16/2022 9:37 AM Note Text: Radiology Service Progress Note DATE OF SERVICE: September 16, 2022 TIME: 9:37 AM PATIENT IDENTITY VERIFICATION COMPLETED USING TWO (2) STANDARD IDENTIFIERS: Name and Date of confirmed by patient verbally and Name and Date of confirmed by identification band. FALL SCREENING: Has the patient had 2 falls in the last year or 1 fall with injury or currently using an Ambulatory Assistive Device (Walker, Cane, Wheelchair, Crutches, etc.)? No PATIENT GENDER DATA: Female. status: : No status: NO. PATIENT RELEVANT IMPLANT DATA REVIEWED: Yes ALLERGIES: Reviewed and unchanged CONTRAST ALLERGY: NO. EXAM: MRI - CONTRAST TYPE: GROUP II PERIPHERAL IV DATA: Ambulatory: A peripheral IV was started in the Left antecubital site with a Angio cath: 22 gauge. RADIOLOGY DEPARTMENT: MR; Exam(s) Completed: Body: Pancreas/Biliary SIGNATURE: RT Daxa(R) PATIENT NAME: Isis Maldonado DATE: September 16, 2022 TIME: 9:37 AM[facility]04-06-2023 Miscellaneous Notes* Telephone Encounter - Maxim Alfaro LPN - 08/07/2022 8:32 AM EDT Patient notified of results and provider's instructions. Patient verbalizes understanding. Maxim Alfaro LPN * Telephone Encounter - Maxine Allen PA-C - 08/07/2022 8:20 AM EDT Let patient know that her cholesterol has improved. Still elevated but closer to goal. We can continue to monitor this. I have placed labs for her to do prior to OV with Dr. Rossi in February. Maxine Allen PA-C documented in this encounterJ.W. [facility]03-03-2023 Miscellaneous Notes* Addendum Note - Kimmie Heath PA-C - 07/04/2022 11:43 AM ESTAddended by: KMIMIE HEATH on: 07/04/2022 11:43 AM Modules accepted: Orders * Telephone Encounter - Kimmie Heath PA-C - 07/04/2022 11:43 AM EST Ok I placed a new order. Sorry about that. * Telephone Encounter - Kimmie Heath PA-C - 07/04/2022 10:48 AM EST I think that was an error. As far as I know it is just the normal MRCP. Can I replace the order? * Telephone Encounter - RT Timoteo(R) - 07/04/2022 10:21 AM ESTSummary: MRI Wanted to double check the order that you placed for this patient to have MRI Pancreas Function. Her 2 prior MRIs did not include these sequences. Just want to clarify if you want a direct comparisonor new sequences. Please advise. Thanks, [facility]. documented in this encounterJ.W. [facility]02-23-2023 Miscellaneous Notes* Telephone Encounter - Ondina Cadena LPN - 06/26/2022 8:43 AM EST Patient phones requesting refills as follows: Requested Prescriptions Pending Prescriptions Disp Refills lisinopril (ZESTRIL,PRINIVIL) 30 mg tablet 180 tablet 1 Sig: Take 1 tablet by mouth twice daily. amLODIPine (NORVASC) 10 mg tablet 90 tablet 1 Sig: Take 1 tablet by mouth once daily. hydroCHLOROthiazide (HYDRODIURIL, ESIDRIX) 25 mg tablet 90 tablet 1 Sig: Take 1 tablet by mouth once daily. JAMIA: 02/19/22 NOV: 02/20/23 Last Refill: all 3 meds: 01/07/22 # 3 mths w/ 1 refill Ondina Cadena LPN * Telephone Encounter - Kimmie Yusuf Pss - 06/26/2022 8:25 AM EST Pharmacy verified in [facility] Patient has been identified by name and date of : Yes Patient aware RX will be sent to pharmacy. No need to notify patient. Patient phones for refill(s): Requested Prescriptions Pending Prescriptions Disp Refills lisinopril (ZESTRIL,PRINIVIL) 30 mg tablet 180 tablet 1 Sig: Take 1 tablet by mouth twice daily. amLODIPine (NORVASC) 10 mg tablet 90 tablet 1 Sig: Take 1 tablet by mouth once daily. hydroCHLOROthiazide (HYDRODIURIL, ESIDRIX) 25 mg tablet 90 tablet 1 Sig: Take 1 tablet by mouth once daily. Date of last office visit : 02/19/2022 Date of next office visit : Visit date not found Last 2 Encounter Wt Readings: Date: Wt: 02/19/2022 64.4 kg (142 lb) 01/30/2021 63.5 kg (140 lb) Please advise. Kimmie Yusuf Pss documented in this encounterJ.W. [facility]01-18-2023 Miscellaneous Notes* Telephone Encounter - Young Soria - 05/21/2022 2:27 PM EST done documented in this encounterJ.W. [facility]10-25-2022 Miscellaneous Notes* Telephone Encounter - Maxim Alfaro LPN - 02/25/2022 2:45 PM EDT Patient notified of results and provider's instructions. Patient verbalizes understanding. Pt will work on diet and recheck labs in 6 months as ordered. Maxim Alfaro LPN * Telephone Encounter - Maxine Allen PA-C - 02/25/2022 2:32 PM EDT Let patient know that her cholesterol is high. Total at 260. LDL at 155. Goal is 100. She had much better readings last year. Could consider starting cholesterol lowering medication but would like her to work on diet and then recheck lab in 6 months. She has an okay HDL/LDL ratio. Which is good. A1c is 5.9 which is stable. Blood counts look okay. documented in this encounterJ.W. [facility]10-19-2022 History of Present illness Narrative* Maxine Allen PA-C - 02/19/2022 12:02 PM EDT Medicare Yearly Visit Medical B eligibilty date n/a Date of last exam 01/30/21 PAST MEDICAL HISTORY Diagnosis Date Age-related osteoporosis without current pathological fracture 08/05/2018 Spine and R hip August 2018 Anesthesia complication 2018 She had issues with slow awakening after her colonoscopy 2 years ago where they used midazolam, fentanyl and Benadryl at the time. Aortic valvar stenosis 08/05/2018 Echo 08/02/18 Mild aortic valve stenosis and regurgitation. Bilateral carotid artery stenosis 08/05/2018 US 08/05/18 bilateral 20-39% Bilateral renal cysts 07/14/2018 MRI: 07/02/2017: benign BPV (benign positional vertigo) 07/14/2018 Delayed emergence from general anesthesia Elevated hemoglobin A1c 01/20/2019 Essential hypertension 07/14/2018 Heart murmur 07/14/2018 Known since she was 16 yo. Pancreatic cyst 07/14/2018 Seen on MRI 07/02/2018, Pancreatic tail: 12 mm and 4 mm. Recommendation to repeat MRI in a year. Stage 3a chronic kidney disease (HCC) 01/30/2021 PAST SURGICAL HISTORY Procedure Laterality Date APPENDECTOMY 1952 COLONOSCOPY FLX DX W/COLLJ SPEC WHEN PFRMD 08/26/2018 Colonoscopy OOPHORECTOMY PARTIAL OR TOTAL 1966 one ovary removed due to a cyst. benign ALLERGIES: Patient has no known allergies. Medications reviewed: Yes FAMILY HISTORY Problem Relation Age of Onset Heart Mother congestive heart failure Stroke Father Cancer Sister on the neck, maybe lymphoma Coronary Artery Disease Sister 75 Hypertension Sister Prostate Cancer Brother 77 Coronary Artery Disease Brother 67 Stroke Brother Coronary Artery Disease Sister 70 Cancer Sister lymphoma Hypertension Sister Alzheimer's Disease No Family History Colon Cancer No Family History Breast Cancer No Family History Ovarian cancer No Family History Uterine Cancer No Family History Diabetes No Family History Hyperlipidemia No Family History Kidney Disease No Family History Seizures No Family History Thyroid No Family History SOCIAL HISTORY: Social History Tobacco Use Smoking status: Never Smokeless tobacco: Never Vaping Use Vaping Use: Never used Substance Use Topics Alcohol use: Never Drug use: Never Isis likes to exercise by housework, yardwork, and walks. She watches her diet for sodium, low fat and low cholesterol most of the time. List of current specialists seen: Dermatology Gastro End of Live Planning discussed including patients advanced directive wishes: Yes I am willing to follow Ada's advanced directives. Depression Screening 07/14/2018 02/19/2022 PHQ-2 Score 0 0 Depression screening tool completed and reviewed. Based on score and interview, patient is not at risk for depression. Screening tool discussed with patient, and I recommended no further interventionat this time. Functional Ability/Safety Screen 1. Was the patient's timed Up and Go test unsteady or longer than 30 seconds? No 2. Does the patient need help with the phone, transportation, shopping,preparing meals, housework, laundry, medications or managing money? No 3. Does your home have rugs in the hallway, lack of grab bars in the bathroom (Y), lack of handrails on the stairs or have poor lighting? No Hearing Evaluation: hard of hearing and wears hearing aids PHYSICAL EXAM BP 148/72 (BP Site: Left Arm, BP Position: Sitting) Pulse 120 Resp 20 Ht 156 cm (5' 1.42) Wt 64.4 kg (142 lb) SpO2 98% BMI 26.47 kg/m Alert and oriented X 3: YES Body mass index is 26.47 kg/m . Visual acuity: sees opto ASSESSMENT/PLAN: 81 year old female The following prevention plan was discussed during the office visit and provided to the patient: See below Maxine Allen PA-C Chief Complaint Patient presents with: Physical HPI Isis Maldonado is a 81 year old female who presents here today for extensive. Patient with hx of HTN, CKD stage 3, Pancreatic cyst, elevated a1c, osteoporosis, coronary artery stenosis, aortic valve stenosis, BPPV and those as below. Patient states she is currently seeing Derm for tx of precancerous lesions on face. Other than that doing well. She did get a new BP cuff and home readings are in 120s/70 on average. No concerns today. Past medical history, appointments, medications, allergies reviewed. Previous Medical History PAST MEDICAL HISTORY Diagnosis Date Age-related osteoporosis without current pathological fracture 08/05/2018 Spine and R hip August 2018 Anesthesia complication 2018 She had issues with slow awakening after her colonoscopy 2 years ago where they used midazolam, fentanyl and Benadryl at the time. Aortic valvar stenosis 08/05/2018 Echo 08/02/18 Mild aortic valve stenosis and regurgitation. Bilateral carotid artery stenosis 08/05/2018 US 08/05/18 bilateral 20-39% Bilateral renal cysts 07/14/2018 MRI: 07/02/2017: benign BPV (benign positional vertigo) 07/14/2018 Delayed emergence from general anesthesia Elevated hemoglobin A1c 01/20/2019 Essential hypertension 07/14/2018 Heart murmur 07/14/2018 Known since she was 16 yo. Pancreatic cyst 07/14/2018 Seen on MRI 07/02/2018, Pancreatic tail: 12 mm and 4 mm. Recommendation to repeat MRI in a year. Stage 3a chronic kidney disease (HCC) 01/30/2021 Previous Surgical History PAST SURGICAL HISTORY Procedure Laterality Date APPENDECTOMY 1952 COLONOSCOPY FLX DX W/COLLJ SPEC WHEN PFRMD 08/26/2018 Colonoscopy OOPHORECTOMY PARTIAL OR TOTAL 1966 one ovary removed due to a cyst. benign Family History FAMILY HISTORY Problem Relation Age of Onset Heart Mother congestive heart failure Stroke Father Cancer Sister on the neck, maybe lymphoma Coronary Artery Disease Sister 75 Hypertension Sister Prostate Cancer Brother 77 Coronary Artery Disease Brother 67 Stroke Brother Coronary Artery Disease Sister 70 Cancer Sister lymphoma Hypertension Sister Alzheimer's Disease No Family History Colon Cancer No Family History Breast Cancer No Family History Ovarian cancer No Family History Uterine Cancer No Family History Diabetes No Family History Hyperlipidemia No Family History Kidney Disease No Family History Seizures No Family History Thyroid No Family History Patient Allergies ALLERGIES No Known Allergies Current Medications Current Outpatient Medications on File Prior to Visit Medication Sig lisinopril (ZESTRIL,PRINIVIL) 30 mg tablet Take 1 tablet by mouth twice daily. hydroCHLOROthiazide (HYDRODIURIL, ESIDRIX) 25 mg tablet Take 1 tablet by mouth once daily. amLODIPine (NORVASC) 10 mg tablet Take 1 tablet by mouth once daily. POTASSIUM-99 ORAL Take by mouth. MAGNESIUM CHLORIDE ORAL Take by mouth. aspirin, enteric coated (ASPIRIN, ENTERIC COATED) 81 mg EC tablet Take 1 tablet by mouth once daily. Hedoa-8-SDT-EPA-Fish Oil 1,200 (144-216) mg cap Take 2 capsules by mouth once daily. No current facility-administered medications on file prior to visit. Social History Social History Tobacco Use Smoking status: Never Smokeless tobacco: Never Vaping Use Vaping Use: Never used Substance Use Topics Alcohol use: Never Drug use: Never Review of Symptoms REVIEW OF SYSTEMS GENERAL: No weight loss, malaise or fevers HEENT: No changes in hearing or vision, no nose bleeds or other nasal problems NECK: Negative for lumps, goiter, pain and significant neck swelling RESPIRATORY: Negative for cough, hemoptysis, wheezing, COPD, dyspnea or shortness of breath CARDIOVASCULAR: Negative for chest pain, leg swelling, CHF or palpitations GI: Negative for abdominal discomfort, blood in stools or black stools, change in bowel habit, heart burn, nausea, vomiting : No history of dysuria, frequency or incontinence 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 PSYCH: Negative for sleep disturbance, mood disorder and recent psychosocial stressors HEMATOLOGY/LYMPHOLOGY: Negative for prolonged bleeding, bruising easily or swollen nodes ENDOCRINE: Negative for cold or heat intolerance, polyuria, polydipsia and goiter NEURO: No history of headaches, syncope, paralysis, seizures or tremors EXAM: BP 148/72 (BP Site: Left Arm, BP Position: Sitting) Pulse 120 Resp 20 Ht 156 cm (5' 1.42) Wt 64.4 kg (142 lb) SpO2 98% BMI 26.47 kg/m BP 118/70 Pulse 120 Resp 20 Ht 156 cm (5' 1.42) Wt 64.4 kg (142 lb) SpO2 98% BMI 26.47kg/m General Appearance: Well appearing, alert, in no acute distress, well-hydrated, well nourished.. Skin: deferred to dermatology. Head: Normocephalic, no masses, lesions, tenderness or abnormalities. Eyes: Anicteric sclera. Pupils are equally round and reactive to light. Extraocular movements are intact. . Ears: External ears normal, canals clear. Neck: Supple, no adenopathy; thyroid symmetric, normal size, + bruits. Lungs: Lungs clear to auscultation. No wheezing, rhonchi, rales.. Heart: +murmur. RRR. Abdomen: Normal abdominal exam, Abdomen soft, non-tender. Bowel sounds normal. No masses, organomegaly. Extremities: No deformities, edema, skin discoloration, clubbing or cyanosis. Good capillary refill. . Peripheral Pulses: Normal. Neurologic: Gait normal. Reflexes normal and symmetric. Sensation grossly intact.. Health Maintenance List COVID-19 VACCINE(1) Never done BP CONTROLLED (<130/80) due on 03/08/2020 ADVANCE DIRECTIVE DISCUSSION Never done DEPRESSION ASSESSMENT Never done SERUM CREATININE due on 01/30/2022 HEMOGLOBIN/HEMATOCRIT due on 01/30/2022 ANNUAL PCP TEAM CHRONIC DISEASE VISIT due on 03/27/2022 DIABETES SCREEN due on 01/31/2024 BONE DENSITY Completed DTAP,TDAP,TD Discontinued INFLUENZA Discontinued SHINGRIX VACCINE Discontinued PNEUMOCOCCAL: 65+ Discontinued Data reviewed N/a ASSESSMENT/PLAN: 1. Medicare annual wellness visit, subsequent - ICD9: V70.0, ICD10: Z00.00 (primary diagnosis) - Counseled on healthy diet and regular exercise - Calcium intake with supplements or by diet of 1000 mg/day for under 50, 1200- 1500 mg/day for 50+ 2. Advanced care planning/counseling discussion - ICD9: V65.49, ICD10: Z71.89 Updated in problem list 3. Essential hypertension - ICD9: 401.9, ICD10: I10 - good control - Continue current medication(s) - Recommended regular aerobic exercise. - Recommend home blood pressure monitoring, to bring results in on next visit - Goal of BP <130/80 - URINALYSIS, WITH MICROSCOPIC - COMP METABOLIC PANEL - CBC + DIFF 4. Stage 3a chronic kidney disease (HCC) - ICD9: 585.3, ICD10: N18.31 Stable- await labs - COMP METABOLIC PANEL - CBC + DIFF 5. Pancreatic cyst - ICD9: 577.2, ICD10: K86.2 Continue with GI. Due for repeat MRI sometime between may and November 2022 6. Elevated hemoglobin A1c - ICD9: 790.29, ICD10: R73.09 Await labs - HGB A1C 7. Age-related osteoporosis without current pathological fracture - ICD9: 733.01, ICD10: M81.0 - Reviewed the need for Calcium and Vitamin D supplements and weight bearing exercise as tolerated - patient declines repeat DXA this year. 8. Bilateral carotid artery stenosis - ICD9: 433.10, 433.30, ICD10: I65.23 stable - LIPID PANEL, NONFASTING 9. Encounter for lipid screening for cardiovascular disease - ICD9: V77.91, V81.2, ICD10: Z13.220, Z13.6 - LIPID PANEL, NONFASTING 10. Benign paroxysmal positional vertigo, unspecified laterality - ICD9: 386.11, ICD10: H81.10 11. Skin lesion - ICD9: 709.9, ICD10: L98.9 Cont with derm 12. Aortic valve stenosis, etiology of cardiac valve disease unspecified - ICD9: 424.1, ICD10: I35.0 Stable. Asymptomatic. Follow up yearly or sooner prn. Maxine Allen PA-C documented in this encounter[facility] Miscellaneous Notes* Telephone Encounter - Noel Rossi MD - 01/07/2022 9:33 PM EDT The following approved medication requests have been transmitted electronically. Requested Prescriptions Signed Prescriptions Disp Refills lisinopril (ZESTRIL,PRINIVIL) 30 mg tablet 180 tablet 1 Sig: Take 1 tablet by mouth twice daily. Authorizing Provider: NOEL ROSSI hydroCHLOROthiazide (HYDRODIURIL, ESIDRIX) 25 mg tablet 90 tablet 1 Sig: Take 1 tablet by mouth once daily. Authorizing Provider: NOEL ROSSI amLODIPine (NORVASC) 10 mg tablet 90 tablet 1 Sig: Take 1 tablet by mouth once daily. Authorizing Provider: ONEL ROSSI MD * Telephone Encounter - Mindy Pruitt Ma - 01/07/2022 4:15 PM EDT Last office visit: 03/27/21 F/u scheduled: 02/19/22 Mindy Pruitt Ma * Telephone Encounter - Sherri Anthony Pss - 01/07/2022 4:02 PM EDT Patient has been identified by name and date of : Yes Requested Prescriptions Pending Prescriptions Disp Refills lisinopril (ZESTRIL,PRINIVIL) 30 mg tablet 180 tablet 1 Sig: Take 1 tablet by mouth twice daily. hydroCHLOROthiazide (HYDRODIURIL, ESIDRIX) 25 mg tablet 90 tablet 1 Sig: Take 1 tablet by mouth once daily. amLODIPine (NORVASC) 10 mg tablet 90 tablet 1 Sig: Take 1 tablet by mouth once daily. RX INSTRUCTIONS: Patient aware RX will be sent to pharmacy. No need to notify patient. Sherri Anthony Pss documented in this [facility] [place]07-05-2022 History of Present illness Narrative* RT Daxa(Isabel) - 11/05/2021 9:00 AM EDT Radiology Service Progress Note DATE OF SERVICE: November 05, 2021 TIME: 10:00 AM PATIENT IDENTITY VERIFICATION COMPLETED USING TWO (2) STANDARD IDENTIFIERS: Name and Date of confirmed by patient verbally and Name and Date of confirmed by identification band. FALL SCREENING: Has the patient had 2 falls in the last year or 1 fall with injury or currently using an Ambulatory Assistive Device (Walker, Cane, Wheelchair, Crutches, etc.)? No PATIENT GENDER DATA: Female. status: : No status: NO. PATIENT RELEVANT IMPLANT DATA REVIEWED: Yes ALLERGIES: Reviewed and unchanged CONTRAST ALLERGY: NO. EXAM: MRI - CONTRAST TYPE: GROUP II PERIPHERAL IV DATA: Ambulatory: A peripheral IV was started in the Left antecubital site with a Angio cath: 22 gauge. RADIOLOGY DEPARTMENT: MR; Exam(s) Completed: Body: Pancreas/Biliary SIGNATURE: RT Daxa(R) PATIENT NAME: Isis Maldonado DATE: November 05, 2021 TIME: 10:00 AM documented in this encounterJ[facility]. [facility] Miscellaneous Notes* Telephone Encounter - Noel Rossi MD - 09/23/2021 5:25 PM EDT The following approved medication requests have been transmitted electronically. Signed Prescriptions Disp Refills amLODIPine (NORVASC) 10 mg tablet 90 tablet 1 Sig: Take 1 tablet by mouth once daily. YUNIOR: No Authorizing Provider: NOEL ROSSI hydroCHLOROthiazide (HYDRODIURIL, ESIDRIX) 25 mg tablet 90 tablet 1 Sig: Take 1 tablet by mouth once daily. YUNIOR: No Authorizing Provider: NOEL ROSSI MD * Telephone Encounter - Rinku Mg MA - 09/23/2021 3:21 PM EDT Patient has been identified by name and date of : Yes Pending Prescriptions Disp Refills AMLODIPINE 10 MG TABLET 90 tablet 1 Sig: Take 1 tablet by mouth once daily. YUNIOR: No HYDROCHLOROTHIAZIDE 25 MG TABLET 90 tablet 1 Sig: Take 1 tablet by mouth once daily. YUNIOR: No RX INSTRUCTIONS: Patient aware RX will be sent to pharmacy. No need to notify patient. Rinku Mg MA Jamia: 03/2021 Nov: 01/2022 Last refill; 01/2021 * Telephone Encounter - April Coronel - 09/23/2021 2:23 PM EDT Patient has been identified by name and date of : Yes Last office visit in this department: Visit date not found RX INSTRUCTIONS: Patient aware RX will be sent to pharmacy. No need to notify patient. Patient phones requesting refills as follows: Pending Prescriptions Disp Refills AMLODIPINE 10 MG TABLET 90 tablet 1 Sig: Take 1 tablet by mouth once daily. YUNIOR: No HYDROCHLOROTHIAZIDE 25 MG TABLET 90 tablet 1 Sig: Take 1 tablet by mouth once daily. YUNIOR: No Please review and advise. April Coronel documented in this encounterJ.W. [facility]03-21-2022 Miscellaneous Notes* Telephone Encounter - Noel Rossi MD - 07/22/2021 1:59 PM EDT The following approved medication requests have been transmitted electronically. Signed Prescriptions Disp Refills amLODIPine (NORVASC) 10 mg tablet 90 tablet 1 Sig: Take 1 tablet by mouth once daily. YUNIOR: No Authorizing Provider: NOEL ROSSI MD * Telephone Encounter - Mindy Pruitt Ma - 07/22/2021 1:26 PM EDT Last office visit: 01/14/22 F/u scheduled: 03/27/21 Mindy Pruitt Ma * Telephone Encounter - Saira Pisano - 07/22/2021 1:06 PM EDT Patient has been identified by name and date of : Yes Pending Prescriptions Disp Refills AMLODIPINE 10 MG TABLET 90 tablet 1 Sig: Take 1 tablet by mouth once daily. YUNIOR: No RX INSTRUCTIONS: Patient aware RX will be sent to pharmacy. No need to notify patient. Saira Pisano documented in this encounterJ[facility] [place] [facility]* Diagnosis Pancreatic cyst Cyst and pseudocyst of pancreas documented in this encounter [facility] [place] [facility]* Diagnosis Medicare annual wellness visit, subsequent- Primary Routine general medical examination at a health care facility Advanced care planning/counseling discussion Other specified counseling Essential hypertension Unspecified essential hypertension Stage 3a chronic kidney disease (HCC) Pancreatic cyst Cyst and pseudocyst of pancreas Elevated hemoglobin A1c Other abnormal blood chemistry Age-related osteoporosis without current pathological fracture Senile osteoporosis Bilateral carotid artery stenosis Occlusion and stenosis of carotid artery without mention of cerebral infarction Encounter for lipid screening for cardiovascular disease Screening for lipoid disorders Benign paroxysmal positional vertigo, unspecified laterality Skin lesion Unspecified disorder of skin and subcutaneous tissue Aortic valve stenosis, etiology of cardiac valve disease unspecified documented in this encounter [facility]* Diagnosis Hyperlipidemia, mixed- Primary Mixed hyperlipidemia documented in this encounter [facility] [facility]* Diagnosis Pancreatic cyst- Primary Cyst and pseudocyst of pancreas Right upper quadrant pain Abdominal pain, right upper quadrant documented in this encounter [facility] [place] [facility]* Diagnosis Pancreatic cyst- Primary Cyst and pseudocyst of pancreas Right upper quadrant pain Abdominal pain, right upper quadrant documented in this encounter [facility] [place] [facility]* Diagnosis Essential hypertension- Primary Unspecified essential hypertension Hyperlipidemia, mixed Mixed hyperlipidemia Stage 3a chronic kidney disease (HCC) Elevated hemoglobin A1c Other abnormal blood chemistry documented in this encounter [facility] [facility]* Diagnosis Medicare annual wellness visit, subsequent- Primary Routine general medical examination at a health care facility Essential hypertension Unspecified essential hypertension Hyperlipidemia, mixed Mixed hyperlipidemia Elevated hemoglobin A1c Other abnormal blood chemistry Bilateral carotid artery stenosis Occlusion and stenosis of carotid artery without mention of cerebral infarction Aortic valve stenosis, etiology of cardiac valve disease unspecified Pancreatic cyst Cyst and pseudocyst of pancreas Stage 3a chronic kidney disease (HCC) Dizziness Dizziness and giddiness Tinnitus of left ear Unspecified tinnitus Advanced care planning/counseling discussion Other specified counseling documented in this encounter [facility] [facility]* Diagnosis Dizziness Dizziness and giddiness Tinnitus of left ear Unspecified tinnitus documented in this encounter [facility] [place] [facility]* Diagnosis Biliary cyst- Primary Other specified disorder of gallbladder Pancreatic cyst Cyst and pseudocyst of pancreas [facility]* Diagnosis Hypertension, essential- Primary Unspecified essential hypertension Stage 3a chronic kidney disease (HCC) Elevated hemoglobin A1c Other abnormal blood chemistry Hyperlipidemia, mixed Mixed hyperlipidemia Essential hypertension Unspecified essential hypertension Bilateral carotid artery stenosis Occlusion and stenosis of carotid artery without mention of cerebral infarction Medication management Encounter for long-term (current) use of other medications documented in this encounter [facility]* Diagnosis Medicare annual wellness visit, subsequent- Primary Routine general medical examination at a health care facility Essential hypertension Unspecified essential hypertension Hyperlipidemia, mixed Mixed hyperlipidemia Elevated hemoglobin A1c Other abnormal blood chemistry Stage 3a chronic kidney disease (HCC) Bilateral carotid artery stenosis Occlusion and stenosis of carotid artery without mention of cerebral infarction Aortic valve stenosis, etiology of cardiac valve disease unspecified Cardiac arrhythmia, unspecified cardiac arrhythmia type Atrial fibrillation, unspecified type ([facility]) Skin cancer screening Screening for malignant neoplasm of the skin Age-related osteoporosis without current pathological fracture Senile osteoporosis Bilateral impacted cerumen Impacted cerumen Advanced care planning/counseling discussion Other specified counseling Encounter for screening examination for other mental health and behavioral disorders Screening for depression documented in this encounter [facility]* Diagnosis Aortic valve stenosis, etiology of cardiac valve disease unspecified- Primary Chronic atrial fibrillation (HCC) Atrial fibrillation Bilateral carotid artery stenosis Occlusion and stenosis of carotid artery without mention of cerebral infarction Essential hypertension Unspecified essential hypertension documented in this encounter [facility]* Diagnosis Bilateral carotid artery stenosis- Primary Occlusion and stenosis of carotid artery without mention of cerebral infarction documented in this encounter [facility] for referral (narrative)* Outpatient Procedure (Routine) - New Request Specialty Diagnoses / Procedures Referred By Contac t Referred To Contact [facility] VASCULAR DIX Diagnoses Essential hypertension Cardiac arrhythmia, unspecified cardiac arrhythmia type Procedures ECG COMPLETE ECG ROUTINE ECG W/LEAST 12 LDS W/I&R Noel Rossi MD [address] [place] [address] [facility] [address] [address] Referral ID Status Reason Start Date Expiration Date Visits Requested Visits Authorized [id number] New Request Auto-Generat ed Referral 4 03/01/2025 1 1 [facility] for referral (narrative)* Outpatient Procedure (Routine) - Authorized Specialty Diagnoses / Procedures Referred By Contac t Referred To Contact [facility] Diagnoses Bilateral carotid artery stenosis Procedures US CAROTID ARTERIES JOSE M [facility] DUPLEX SCAN EXTRACRANIAL ART COMPL BI STUDY Noel Rossi MD [address] [place] [address] [id number] [place] [address] Referral ID Status Reason Start Date Expiration Date Visits Requested Visits Authorized [id number] Authorized Auto-Generat ed Referral 4 03/15/2025 1 1 [facility] for referral (narrative)No reason for referral information availableKindred Hospital Work Phone: Advance Directives No Advanced Directives Records FoundDocuments on File Type Date Recorded 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 Advance Directive(s) 11/26/2020 9:11 AM Advance Directive(s) 08/26/2018 8:54 AM Advance Directive(s) 08/10/2018 10:05 AM Documents on File Type Date Recorded 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 Advance Directive(s) 11/05/2021 9:23 AM Advance Directive(s) 11/26/2020 9:11 AM Advance Directive(s) 08/26/2018 8:54 AM Advance Directive(s) 08/10/2018 10:05 AM Reason for Referral Specialty Diagnoses / Procedures Referred By Contac t Referred To Contact [facility] Diagnoses Pancreatic cyst Procedures MRI PANC/JOSE M WO/W IVCON MRI,ABDOMEN,W&WO Jourdan Spain MD [address] [address] [facility] Imaging Referral ID Status Reason Start Date Expiration Date V isits Requested Visits Authorized [id number] Closed Auto-Generate d Referral 10/11/2021 04/09/2022 1 1 Specialty Diagnoses / Procedures Referred By Contac t Referred To Contact [facility] Diagnoses Pancreatic cyst Right upper quadrant pain Procedures MRI PANCREAS FUNCTION WO/W IVCON MRI ABDOMEN W/O & W/CONTRAST MATERIAL Kimmie Heath PA-C [address] [place] [address] Mr Imaging Referral ID Status Reason Start Date Expiration Date Visits Requested Visits Authorized [id number] Pending Review Auto-Generat ed Referral 05/21/2022 06/20/2023 1 1 Specialty Diagnoses / Procedures Referred By Contac t Referred To Contact [facility] Diagnoses Pancreatic cyst Right upper quadrant pain Procedures MRI PANC/JOSE M WO/W IVCON MRI ABDOMEN W/O & W/CONTRAST MATERIAL Kimmie Heath PA-C [address] [place] [address] Mr Imaging Referral ID Status Reason Start Date Expiration Date Visits Requested Visits Authorized [id number] Authorized Auto-Generat ed Referral 05/04/2022 05/03/2023 1 1 Specialty Diagnoses / Procedures Referred By Contac t Referred To Contact [facility] Diagnoses Biliary cyst Pancreatic cyst Procedures MRI 3D POST PROCESSING 3D RENDERING W/INTERP&POSTPROC DIFF WORK STATION Kimmie Heath PA-C [address] [place] [address] [place] [address] Referral ID Status Reason Start Date Expiration Date Visits Requested Visits Authorized [id number] Pending Review Auto-Generat ed Referral 08/03/2023 09/01/2024 1 1 Specialty Diagnoses / Procedures Referred By Omar muse Referred To Contact [facility] Diagnoses Biliary cyst Pancreatic cyst Procedures MRI PANC/JOSE M WO/W IVCON MRI ABDOMEN W/O & W/CONTRAST MATERIAL Kimmie Heath PA-C [address] [place] [address] [place] [address] Referral ID Status Reason Start Date Expiration Date Visits Requested Visits Authorized [id number] Pending Review Auto-Generat ed Referral 08/03/2023 09/01/2024 1 1 Summary Purpose Family History No Family History Records Found Relationship Condition Age at Onset Recorded Date/T heide mother Cardiac disease Unknown Congestive heart failure Unknown sister Coronary artery disease Unknown Hypertension Unknown Malignant neoplasm Unknown father Cerebrovascular accident (CVA) Unknown brother Coronary artery disease Unknown Cerebrovascular accident (CVA) Unknown Chief Complaint and Reason for Visit Chief Complaint Admit Date 1 M FU July 06, 2024 7:55 am SOB/Restlessness July 21, 2024 1:3 4pm 3 M FU October 18, 2024 9:22 am Reason for Visit Admit Date Aortic valve stenosis July 06, 2024 7: 55am Atrial fibrillation with rapid ventricul ar response July 06, 2024 7:55am Mixed hyperlipidemia July 06, 2024 7:5 5am HTN (hypertension) July 06, 2024 7:55 am Aortic valve stenosis July 21, 2024 1 :34pm Atrial fibrillation July 21, 2024 1:3 4pm Atrial fibrillation with rapid ventricul ar response July 21, 2024 1:34pm Mixed hyperlipidemia July 21, 2024 1: 34pm HTN (hypertension) July 21, 2024 1:3 4pm Aortic valve stenosis October 18, 2024 9: 22am Atrial fibrillation October 18, 2024 9:22 am Atrial fibrillation with rapid ventricul ar response October 18, 2024 9:22am Mixed hyperlipidemia October 18, 2024 9:2 2am HTN (hypertension) October 18, 2024 9:22 am Chief Complaint Admit Date 3 M FU October 18, 2024 9:22 am 8 WK FU December 13, 2024 3: 34pm Reason for Visit Admit Date Aortic valve stenosis October 18, 2024 9: 22am Mixed hyperlipidemia October 18, 2024 9:2 2am PAF (paroxysmal atrial fibrillation) Oct 9:22am HTN (hypertension) October 18, 2024 9:22 am Aortic valve stenosis December 13, 2024 3:34pm Mixed hyperlipidemia December 13, 2024 3 :34pm PAF (paroxysmal atrial fibrillation) Dec 3:34pm HTN (hypertension) December 13, 2024 3: 34pm Chief Complaint Admit Date 3 M FU October 18, 2024 9:22 am 8 WK FU December 13, 2024 3: 34pm R01.1 Cardiac murmur, unspecified Octobe r 2024 1:03pm F/U rescheduled from March, echo Octo 2024 2:01pm Reason for Visit Admit Date Aortic valve stenosis October 18, 2024 9: 22am Mixed hyperlipidemia October 18, 2024 9:2 2am PAF (paroxysmal atrial fibrillation) Oct 9:22am HTN (hypertension) October 18, 2024 9:22 am Aortic valve stenosis December 13, 2024 3:34pm Mixed hyperlipidemia December 13, 2024 3 :34pm PAF (paroxysmal atrial fibrillation) Dec 3:34pm HTN (hypertension) December 13, 2024 3: 34pm Encounter for monitoring anti-arrhythmic therapy February 07, 2025 2:01pm Chief Complaint Admit Date 8 WK FU December 13, 2024 3: 34pm R01.1 Cardiac murmur, unspecified Octobe r 2024 1:03pm F/U rescheduled from March, echo Octo john 2024 2:01pm Reason for Visit Admit Date Aortic valve stenosis December 13, 2024 3:34pm Mixed hyperlipidemia December 13, 2024 3 :34pm PAF (paroxysmal atrial fibrillation) Dec 3:34pm HTN (hypertension) December 13, 2024 3: 34pm Aortic valve stenosis February 07, 2025 2:01pm Encounter for monitoring anti-arrhythmic therapy February 07, 2025 2:01pm PAF (paroxysmal atrial fibrillation) Oct david 2024 2:01pm HTN (hypertension) February 07, 2025 2: 01pm Additional Source Comments Source Comments (unrecognize d section and content) In the event this informatio n is protected by the Federal Confidentiality of Alcohol and Drug Abuse Patient Records regulations: The Federal rules restrict any use of the information to criminally investigate or prosecute any alcohol or drug abuse patient.[facility] HospitalIn the event this information is protected by the Federal Confidentiality of Alcohol and Drug Abuse Patient Records regulations: The Federal rules restrict any use of the information to criminally investigate or prosecute any alcohol or drug abuse patient.[facility] HospitalIn the event this information is protected by the Federal Confidentiality of Alcohol and Drug Abuse Patient Records regulations: The Federal rules restrict any use of the information to criminally investigate or prosecute any alcohol or drug abuse patient.[facility] HospitalIn the event this information is protected by the Federal Confidentiality of Alcohol and Drug Abuse Patient Records regulations: The Federal rules restrict any use of the information to criminally investigate or prosecute any alcohol or drug abuse patient.[facility] HospitalIn the event this information is protected by the Federal Confidentiality of Alcohol and Drug Abuse Patient Records regulations: The Federal rules restrict any use of the information to criminally investigate or prosecute any alcohol or drug abuse patient.[facility] HospitalIn the event this information is protected by the Federal Confidentiality of Alcohol and Drug Abuse Patient Records regulations: The Federal rules restrict any use of the information to criminally investigate or prosecute any alcohol or drug abuse patient.[facility] HospitalIn the event this information is protected by the Federal Confidentiality of Alcohol and Drug Abuse Patient Records regulations: The Federal rules restrict any use of the information to criminally investigate or prosecute any alcohol or drug abuse patient.[facility] HospitalIn the event this information is protected by the Federal Confidentiality of Alcohol and Drug Abuse Patient Records regulations: The Federal rules restrict any use of the information to criminally investigate or prosecute any alcohol or drug abuse patient.[facility] HospitalIn the event this information is protected by the Federal Confidentiality of Alcohol and Drug Abuse Patient Records regulations: The Federal rules restrict any use of the information to criminally investigate or prosecute any alcohol or drug abuse patient.[facility] HospitalIn the event this information is protected by the Federal Confidentiality of Alcohol and Drug Abuse Patient Records regulations: The Federal rules restrict any use of the information to criminally investigate or prosecute any alcohol or drug abuse patient.[facility] HospitalIn the event this information is protected by the Federal Confidentiality of Alcohol and Drug Abuse Patient Records regulations: The Federal rules restrict any use of the information to criminally investigate or prosecute any alcohol or drug abuse patient.[facility] HospitalIn the event this information is protected by the Federal Confidentiality of Alcohol and Drug Abuse Patient Records regulations: The Federal rules restrict any use of the information to criminally investigate or prosecute any alcohol or drug abuse patient.[facility] HospitalIn the event this information is protected by the Federal Confidentiality of Alcohol and Drug Abuse Patient Records regulations: The Federal rules restrict any use of the information to criminally investigate or prosecute any alcohol or drug abuse patient.[facility] HospitalIn the event this information is protected by the Federal Confidentiality of Alcohol and Drug Abuse Patient Records regulations: The Federal rules restrict any use of the information to criminally investigate or prosecute any alcohol or drug abuse patient.[facility] HospitalIn the event this information is protected by the Federal Confidentiality of Alcohol and Drug Abuse Patient Records regulations: The Federal rules restrict any use of the information to criminally investigate or prosecute any alcohol or drug abuse patient.[facility] HospitalIn the event this information is protected by the Federal Confidentiality of Alcohol and Drug Abuse Patient Records regulations: The Federal rules restrict any use of the information to criminally investigate or prosecute any alcohol or drug abuse patient.[facility] HospitalIn the event this information is protected by the Federal Confidentiality of Alcohol and Drug Abuse Patient Records regulations: The Federal rules restrict any use of the information to criminally investigate or prosecute any alcohol or drug abuse patient.[facility] HospitalIn the event this information is protected by the Federal Confidentiality of Alcohol and Drug Abuse Patient Records regulations: The Federal rules restrict any use of the information to criminally investigate or prosecute any alcohol or drug abuse patient.[facility] HospitalIn the event this information is protected by the Federal Confidentiality of Alcohol and Drug Abuse Patient Records regulations: The Federal rules restrict any use of the information to criminally investigate or prosecute any alcohol or drug abuse patient.[facility] HospitalIn the event this information is protected by the Federal Confidentiality of Alcohol and Drug Abuse Patient Records regulations: The Federal rules restrict any use of the information to criminally investigate or prosecute any alcohol or drug abuse patient.[facility] HospitalIn the event this information is protected by the Federal Confidentiality of Alcohol and Drug Abuse Patient Records regulations: The Federal rules restrict any use of the information to criminally investigate or prosecute any alcohol or drug abuse patient.[facility] HospitalIn the event this information is protected by the Federal Confidentiality of Alcohol and Drug Abuse Patient Records regulations: The Federal rules restrict any use of the information to criminally investigate or prosecute any alcohol or drug abuse patient.[facility] HospitalIn the event this information is protected by the Federal Confidentiality of Alcohol and Drug Abuse Patient Records regulations: The Federal rules restrict any use of the information to criminally investigate or prosecute any alcohol or drug abuse patient.[facility] HospitalIn the event this information is protected by the Federal Confidentiality of Alcohol and Drug Abuse Patient Records regulations: The Federal rules restrict any use of the information to criminally investigate or prosecute any alcohol or drug abuse patient.[facility] HospitalIn the event this information is protected by the Federal Confidentiality of Alcohol and Drug Abuse Patient Records regulations: The Federal rules restrict any use of the information to criminally investigate or prosecute any alcohol or drug abuse patient.[facility] HospitalIn the event this information is protected by the Federal Confidentiality of Alcohol and Drug Abuse Patient Records regulations: The Federal rules restrict any use of the information to criminally investigate or prosecute any alcohol or drug abuse patient.[facility] HospitalIn the event this information is protected by the Federal Confidentiality of Alcohol and Drug Abuse Patient Records regulations: The Federal rules restrict any use of the information to criminally investigate or prosecute any alcohol or drug abuse patient.[facility] HospitalIn the event this information is protected by the Federal Confidentiality of Alcohol and Drug Abuse Patient Records regulations: The Federal rules restrict any use of the information to criminally investigate or prosecute any alcohol or drug abuse patient.[facility] HospitalIn the event this information is protected by the Federal Confidentiality of Alcohol and Drug Abuse Patient Records regulations: The Federal rules restrict any use of the information to criminally investigate or prosecute any alcohol or drug abuse patient.[facility] HospitalIn the event this information is protected by the Federal Confidentiality of Alcohol and Drug Abuse Patient Records regulations: The Federal rules restrict any use of the information to criminally investigate or prosecute any alcohol or drug abuse patient.[facility] Reason for Visit (unrecogniz ed section and content) Reason Onset Date Comments Refill Request 07/22/2021 Reason Onset Date Comments Refill Request 09/23/2021 Specialty Diagnoses / Procedures Referred By Omar t Referred To Contact MR IMAGING Diagnoses Pancreatic cyst Procedures MRI PANC/JOSE M WO/W IVCON MRI,ABDOMEN,W&WO Jourdan Spain MD [address] [facility] [address] [place] [address] Mr Imaging Referral ID Status Reason Start Date Expiration Date V isits Requested Visits Authorized Closed Auto-Generate d Referral 10/11/2021 04/09/2022 1 1 Reason Onset Date Comments Refill Request 01/07/2022 Reason Comments Physical Reason Comments Results Reason Comments Orders Reason Onset Date Comments Refill Request 06/26/2022 Reason Comments Orders MRI Reason Onset Date Comments Refill Request Refill Request 01/01/2023 Reason Onset Date Comments Refill Request 07/06/2023 PLEASE SEND TODA Y Reason Comments Follow Up Reason Comments Patient Question Reason Onset Date Comments Refill Request 01/15/2024 needs refills of amlodipine,lisinopril,hctz Reason Comments requesting lab orders Reason Comments Medicare Wellness Exam Reason Comments Outside H&P Reason Comments ER F/U [facility] Reason Comments ER Discharge Summary Reason Comments Hospital F/U Reason Comments Patient Update Reason Comments blood pressure update/?take medication Reason Comments Outside Cardiology Reason Onset Date Comments Refill Request 08/08/2024 Reason Comments Abstract Cardiology OV note - [facility] Care Teams (unrecognized sec tion and content) Crystallography Teacher Relationship Specialty Start Date End Date Noel Rossi MD [address] [place], [place] [id number] PCP - General Family Practice 07/14/18 Crystallography Teacher Relationship Specialty Start Date End Date Noel Rossi MD [address] [place], [place] [id number] PCP - General Family Practice 07/14/18 Crystallography Teacher Relationship Specialty Start Date End Date Noel Rossi MD [address] [place], [place] [id number] PCP - General Family Practice 07/14/18 Crystallography Teacher Relationship Specialty Start Date End Date Noel Rossi MD [address] [facility] [place] [address] PCP - General Family Practice 07/14/18 Crystallography Teacher Relationship Specialty Start Date End Date Noel Rossi MD [address] [facility] [place] [address] PCP - General Family Medicine 07/14/18 Crystallography Teacher Relationship Specialty Start Date End Date Noel Rossi MD [address] [facility] [place] [address] PCP - General Family Medicine 07/14/18 Crystallography Teacher Relationship Specialty Start Date End Date Noel Rossi MD [address] [facility] [place] [address] PCP - General Family Medicine 07/14/18 Crystallography Teacher Relationship Specialty Start Date End Date Noel Rossi MD [address] [facility] [place] [address] PCP - General Family Medicine 07/14/18 Crystallography Teacher Relationship Specialty Start Date End Date Noel Rossi MD [address] [facility] [place] [address] PCP - General Family Medicine 07/14/18 Crystallography Teacher Relationship Specialty Start Date End Date Noel Rossi MD [address] [facility] [place] [address] PCP - General Family Medicine 07/14/18 Crystallography Teacher Relationship Specialty Start Date End Date Noel Rossi MD [address] [facility] [place] [address] PCP - General Family Medicine 07/14/18 Crystallography Teacher Relationship Specialty [place] [address] [place] [address], [place] [address] PCP - General Family Medicine 07/14/18 Crystallography Teacher Relationship Specialty Start Date End Date Noel Rossi MD [address] [place] [address] PCP - General Family Medicine 07/14/18 Crystallography Teacher Relationship Specialty Start Date End Date Noel Rossi MD [address] [place] [address] PCP - General Family Medicine 07/14/18 Crystallography Teacher Relationship Specialty Start Date End Date Noel Rossi MD [address] [place] [address] PCP - General Family Medicine 07/14/18 Crystallography Teacher Relationship Specialty Start Date End Date Noel Rossi MD [address] [place] [address] PCP - General Family Medicine 07/14/18 Crystallography Teacher Relationship Specialty Start Date End Date Noel Rossi MD [address] [place] [address] PCP - General Family Medicine 07/14/18 Crystallography Teacher Relationship Specialty Start Date End Date Noel Rossi MD [address] [place] [address] PCP - General Family Medicine 07/14/18 Crystallography Teacher Relationship Specialty Start Date End Date Noel Rossi MD [address] [place] [address] PCP - General Family Medicine 07/14/18 Crystallography Teacher Relationship Specialty Start Date End Date Noel Rossi MD [address] [facility] [place] [address] PCP - General Family Medicine 07/14/18 Crystallography Teacher Relationship Specialty Start Date End Date Noel Rossi MD [address] [place] [address] PCP - General Family Medicine 07/14/18 Crystallography Teacher Relationship Specialty Start Date End Date Noel Rossi MD [address] [place] [address] PCP - General Family Medicine 07/14/18 Jessy Khan APRN.WINDOW TREATMENT INSTALLER [address] [place] [id number] Director Oncology Family Medicine 04/09/24 Maxine Allen PA-C [address] [place] [address] Director Oncology Family Medicine 04/09/24 Crystallography Teacher Relationship Specialty Start Date End Date Noel Rossi MD [address] [place] [address] PCP - General Family Medicine 07/14/18 Jessy Khan APRN.WINDOW TREATMENT INSTALLER [address] [place] [address] Director Oncology Family Medicine 04/09/24 Maxine Allen PA-C [address] [place] [address] Director Oncology Family Medicine 04/09/24 Crystallography Teacher Relationship Specialty Start Date End Date Noel Rossi MD [address] [place], [place] [address] PCP - General Family Medicine 07/14/18 Jessy Kahn APRN.CNP [address] [place], [place] [id number] Director Oncology [facility] 04/09/24 Maxine Allen PA-C [address] [place] [address] [facility] 04/09/24 Team Status: Active Member Role Status Dates Dr. Noel Rossi MD Family Provider Active Dr. Noel Rossi MD Primary Care Provider Active Team Status: Inactive Member Role Status Dates Dr. Noel Rossi MD Primary Care Provider Active Start: July 06, 2024 End: July 06, 2024 Dr. Noel Rossi MD Referring Provider Active Start: July 06, 2024 End: July 06, 2024 Megan ROWLEY PA Attending Provider Active Start: July 06, 2024 End: July 06, 2024 Team Status: Inactive Member Role Status Dates Dr. Noel Rossi MD Primary Care Provider Active Start: July 21, 2024 End: July 21, 2024 Dr. Noel Rossi MD Referring Provider Active Start: July 21, 2024 End: July 21, 2024 Megan ROWLEY PA Attending Provider Active Start: July 21, 2024 End: July 21, 2024 Team Status: Inactive Member Role Status Dates Dr. Noel Rossi MD Primary Care Provider Active Start: October 18, 2024 End: October 18, 2024 Dr. Noel Rossi MD Referring Provider Active Start: October 18, 2024 End: October 18, 2024 Megan ROWLEY PA Attending Provider Active Start: October 18, 2024 End: October 18, 2024 Team Status: Active Member Role/Relationship Status Dates Dr. Noel Rossi MD Family Provider Active Dr. Noel Rossi MD Primary Care Provider Active Team Status: Inactive Member Role/Relationship Status Dates Dr. Noel Rossi MD Primary Care Provider Active Start: October 18, 2024 End: October 18, 2024 Dr. Noel Rossi MD Referring Provider Active Start: October 18, 2024 End: October 18, 2024 Megan ROWLEY, PA Attending Provider Active Start: October 18, 2024 End: October 18, 2024 Team Status: Inactive Member Role/Relationship Status Dates Dr. Noel Rossi MD Primary Care Provider Active Start: December 13, 2024 End: December 13, 2024 Dr. Noel Rossi MD Referring Provider Active Start: December 13, 2024 End: December 13, 2024 Megan ROWLEY PA Attending Provider Active Start: December 13, 2024 End: December 13, 2024 Crystallography Teacher Relationship Specialty Start Date End Date Noel Rossi MD [address] [place], [place] [id number] PCP - General Family Medicine 07/14/18 Jessy Khan APRN.CNP [address] [place] [id number] Director Oncology Family [facility] 10/03/24 Maxine Allen PA-C [address] [place], [place] [id number] [facility] 10/03/24 Team Status: Active Member Role/Relationship Status Dates Dr. Noel Rossi MD Primary care physician Active Team Status: Inactive Member Role/Relationship Status Dates Dr. Noel Rossi MD Primary care physician Active Start: October 18, 2024 End: October 18, 2024 Dr. Noel Rossi MD Referring Provider Active Start: October 18, 2024 End: October 18, 2024 Megan ROWLEY PA Attending physician Active Start: October 18, 2024 End: October 18, 2024 Team Status: Inactive Member Role/Relationship Status Dates Dr. Noel Rossi MD Primary care physician Active Start: December 13, 2024 End: December 13, 2024 Dr. Noel Rossi MD Referring Provider Active Start: December 13, 2024 End: December 13, 2024 Megan ROWLEY PA Attending physician Active Start: December 13, 2024 End: December 13, 2024 Team Status: Active Member Role/Relationship Status Dates Dr. Noel Rossi MD Primary care physician Active Start: February 01, 2025 Megan ROWLEY PA Attending physician Active Start: February 01, 2025 Megan ROWLEY PA Referring Provider Active Start: February 01, 2025 Team Status: Active Member Role/Relationship Status Dates Dr. Noel Rossi MD Primary care physician Active Start: February 01, 2025 Dr. Neftali Nowak MD Attending physician Active Start: February 01, 2025 Team Status: Inactive Member Role/Relationship Status Dates Dr. Noel Rossi MD Primary care physician Active Start: February 07, 2025 End: February 07, 2025 Dr. Noel Rossi MD Referring Provider Active Start: February 07, 2025 End: February 07, 2025 Megan ROWLEY PA Attending physician Active Start: February 07, 2025 End: February 07, 2025 Team Status: Inactive Member Role/Relationship Status Dates Dr. Noel Rossi MD Primary care physician Active Start: December 13, 2024 End: December 13, 2024 Dr. Noel Rossi MD Referring Provider Active Start: December 13, 2024 End: December 13, 2024 AMRIK Kaba Attending physician Active Start: December 13, 2024 End: December 13, 2024 Team Status: Inactive Member Role/Relationship Status Dates Dr. Noel Rossi MD Primary care physician Active Start: February 01, 2025 End: February 01, 2025 Megan ROWLEY PA Attending physician Active Start: February 01, 2025 End: February 01, 2025 Megan ROWLEY PA Referring Provider Active Start: February 01, 2025 End: February 01, 2025 Team Status: Active Member Role/Relationship Status Dates Dr. Noel Rossi MD Primary care physician Active Start: February 01, 2025 Dr. Neftali Nowak MD Attending physician Active Start: February 01, 2025 Team Status: Inactive Member Role/Relationship Status Dates Dr. Noel Rossi MD Primary care physician Active Start: February 07, 2025 End: February 07, 2025 Dr. Noel Rossi MD Referring Provider Active Start: February 07, 2025 End: February 07, 2025 Megan ROWLEY, PA Attending physician Active Start: February 07, 2025 End: February 07, 2025 INFORMATION SOURCE (unrecogn ized section and content) DATE CREATED AUTHOR 08/19/2023 [facility] DATE CREATED AUTHOR AUTHOR'S ORGANIZ ATION 03/09/2025 [facility] DATE CREATED AUTHOR AUTHOR'S ORGANIZ ATION 03/15/2025 [facility] Goals (unrecognized section and content) Goals may be documented in a n alternate sectionGoals may be documented in an alternate sectionGoals may be documented in an alternate sectionGoals may be documented in an alternate section FOR RECORDS PERTAINING TO PATIENTS WHO ARE OR HAVE BEEN ENROLLED IN A CHEMICAL DEPENDENCY/SUBSTANCEABUSE PROGRAM, SOME INFORMATION MAY BE OMITTED. This clinical summary was aggregated from multiple sources. Caution should be exercised in using it in the provision of clinical care. This summary normalizes information from multiple sources, and as a consequence, information in this document may materially change the coding, format and clinical context of patient data. In addition, data may be omitted in some cases. CLINICAL DECISIONS SHOULD BE BASED ON THE PRIMARY CLINICAL RECORDS. [facility]. provides no warranty or guarantee of the accuracy or completeness of information in this document.
--- NOTE | 2025-04-03 09:05 | CL.D_ITS ---
Patient Name: KRISTA MALDONADO Study Date: 04/03/2025 Performing: Neftali Nowak MD Ht: 61 inches 154.94 cm : 1940 Wt: 134.99 lbs 61.23 kg Age: 84 Gender: female BSA: 1.6 PROCEDURE(S) PERFORMED [id number]-([id number])[facility] CLINICAL PROFILE AND INDICATIONS Indications: Valvular Disease Heart Failure: None Stress/Imaging Stress/Image Study Performed: No CAD Presentations: No Sxs, no angina. CONCLUSIONS Normal coronary arteries Normal LV size, wall motion,and systolic function Aortic Valve Stenosis- Severe RECOMMENDATIONS For TAVR DESCRIPTION OF PROCEDURE The patient arrived to the procedure lab. The risks and benefits of the procedure as well as a full description of our services here and current unavailability of surgical backup were fully explained to the patient and/or their significant other prior to the catheterization. The Timeout was completed, verifying the correct patient and procedure. The patient's procedural site was prepped and draped in the usual fashion. Local anesthetic was given subcutaneously to right radial region with Lidocaine 2%. Using a modified Seldinger technique, arterial access was obtained via the right radial artery, a 6Fr sheath was inserted. Left Coronary Artery selective angiography was performed in multiple views using a 5 Fr. 4.0 [place] catheter. Right Coronary Artery selective angiography was then performed in multiple views using a 5 Fr. 4.0 [place] catheter.The arterial sheath was pulled and a TR Band was applied for hemostasis 10 ml of air CORONARY ANGIOGRAPHY DOMINANCE: Right Dominant LEFT HEART ASSESSMENT Left Ventricular Ejection Fraction: by Echo 60 % Normal LV wall motion Normal Left Ventricular systolic function LEFT MAIN: Angiographically normal CIRCUMFLEX ARTERY: Mild luminal irregularities RIGHT CORONARY ARTERY: Angiographically normal COMPLICATIONS No Complications PROCEDURE MEDICATIONS Versed 0.5 mg IV Fentanyl 25 mcg IV Versed 0.5 mg IV Fentanyl 25 mcg IV Oxygen: 2 L/min via nasal cannula Aspirin (325mg) 1 Tabs PO @ 04/03/2025 07:45:20 Heparin given IA 04/03/2025 08:27:38 Verapamil 2.5mg, Ntg 100mcgs, 3000 units of Heparin given IA 04/03/2025 08:27:38 SUMMARY OF HEMODYNAMIC DATA Time AIR REST ECG 07:47:42 Art 132/56 (85) 08:37:17 AO 139/53 (87) SA 08:39:37 AIR REST 08:59:31 Signed By Neftali Nowak MD On 04/03/2025 09:04:36 Neftali Nowak MD
== END 2025-04-03 10:20 | disposition home or self-care (01) ==
PROVIDERS: PCP Family Medicine; Referring Provider Internal Medicine Cardiovascular Disease; Visit Provider Internal Medicine Cardiovascular Disease
DX: I35.0 Nonrheumatic aortic (valve) stenosis (principal); I48.0 Paroxysmal atrial fibrillation; N18.31 Chronic kidney disease, stage 3a; I12.9 Hypertensive chronic kidney disease with stage 1 through stage 4 chronic kidney disease, or unspecified chronic kidney disease; Z79.01 Long term (current) use of anticoagulants; Z79.899 Other long term (current) drug therapy; Z79.890 Hormone replacement therapy; E78.2 Mixed hyperlipidemia; Z51.81 Encounter for therapeutic drug level monitoring; R06.02 Shortness of breath
CPT/HCPCS: 93454; 99152; 99153; Q9967; C1769; C1894